=== PATIENT | female | born 1950 | race Caucasian/White ===

== ENCOUNTER → 2020-09-06 13:54 | Outpatient (POV) | payer MEDICARE, SELFPAY ==
[2020-09-06 14:23] VITALS: BP 138/89; PULSE 88; RESP 20; TEMP 36.4; O2SAT 100; BMI 18.7
--- NOTE | 2020-09-06 14:58 | HMH.PMCON ---
Assessment and Plan (1) Degenerative joint disease (DJD) of lumbar spine Status: Chronic Qualifiers: Spinal osteoarthritis complication: with radiculopathy Qualified Code(s): M47.26 - Other spondylosis with radiculopathy, lumbar region Category: Medical Code(s): M47.816 - Spondylosis without myelopathy or radiculopathy, lumbar region (2) Lumbar radiculopathy Status: Chronic Category: Medical Code(s): M54.16 - Radiculopathy, lumbar region (3) Sacroiliitis Status: Chronic Category: Medical Code(s): M46.1 - Sacroiliitis, not elsewhere classified - Assessment and plan all Dx Assessment and Plan for all problems:: Patient and I had a discussion in regard to plan of care we will start with a right SI joint injection for the patient. If this is not beneficial we will move forward with additional treatment of low back pain potentially facet joint injections. Patient is in agreements. I will follow-up with her after her injection reassess her symptoms at that time she has been instructed to call the office if she has any issues prior to her next appointment. Dr. Rivera has reviewed this note and agrees with this plan of care. This note was dictated using voice recognition software and may contain errors or omissions HPI - Data of Consult Consult date: 09/06/20 Requesting Physician: Nichole Mosley APRN Primary Care Provider: Referral Provider, - Consult Narrative Reason for consult: Right-sided low back pain History of present illness: Ms. Warner is a 70 year old female who presents today for consultation in regard to her right-sided low back pain. Patient has had this for about 8 months she states. Patient states is getting worse. She does have an MRI showing degenerative changes along with ligamentum flavum hypertrophy. She notices no difference between sitting and standing and walking in regards to her pain level. Patient is extremely tender over her right SI joint, she does have a positive Esau test SI joint compression test, Candy's test, distraction test on the right side. Patient has tried and failed 8 months of medication. She has had multiple epidural injections with no relief. Patient I had a long discussion in regard to SI joint pain and a plan of care. I do believe she has multiple pain generators. However I think at this time the worst one is her right SI joint. She has radiation of it into her buttock and groin. CC: Nichole Mosley APRN [facility] History I have reviewed the patient's past medical history: Yes Medical History: Reports:: Hyperlipidemia, Hypertension Denies:: Cancer, Diabetes Mellitus Type 1, Internal Pacemaker, MRSA *Have you ever received a pneumonia vaccine?: Yes *Have you received a flu vaccine this season?: Yes Other Surgeries: No: Pacemaker Amputation: No Fractures: No - *Social History Smoking Status: Current every day smoker Tobacco Type: cigarettes # Packs/Day (cigarettes): 1 Alcohol Intake: never *Occupational Status:: retired Housing: house Household Members: other *Travel in the last 8 weeks: None Family Hx:: Hypertension Review of Systems - Review of Systems ROS General: no recent weight change, no fever, no sleep disturbances Respiratory: no cough, no shortness of air, no recurring pulmonary infections Cardiovascular/Peripheral Vascular: No chest pain, No palpitations, no edema, no shortness of breath. Gastrointestinal: no new onset incontinence, normal bowel movements reported Genitourinary: no new onset incontinence Musculoskeletal: [Right SI joint pain, back pain Psychiatric: normal mood/ affect Neurological: [denies new onset weakness in extremities], [denies new onset balance issues] Meds Home Medications Medication Instructions Recorded Confirmed Type Amlodipine Besylate [Amlodipine 10 mg PO DAILY 09/06/20 09/06/20 History 10mg Tab] Atorvastatin Calcium [Lipitor 80mg 80 mg PO HS 09/06/20 09/06/20 Histor
== END ==
PROVIDERS: Visit Provider Clinical Nurse Specialist Family Health
DX: M47.26 Other spondylosis with radiculopathy, lumbar region (principal); M54.16 Radiculopathy, lumbar region; M46.1 Sacroiliitis, not elsewhere classified
CPT/HCPCS: 99202

== ENCOUNTER 2020-09-10 14:00 | Day surgery (SDC) | payer MEDICARE, SELFPAY ==
[2020-09-10 14:14] VITALS: BP 123/87; PULSE 100; RESP 20; TEMP 36.6; O2SAT 95; BMI 18.7
[2020-09-10 14:36] VITALS: BP 112/74; PULSE 85; RESP 18; O2SAT 97
[2020-09-10 14:38] VITALS: BP 118/74; PULSE 85; RESP 18; O2SAT 98
--- NOTE | 2020-09-10 14:45 | HMH.PMPROC ---
- Procedure Date: 09/10/20 Time: 14:45 Anesthesiologist:: Nichole Mosley APRN Complications:: None Pre-procedure Diagnosis:: Sacroiliitis Post-procedure Diagnosis:: Same Indications for Procedure:: Patient is a pleasant 70-year-old white female who presents today for SI joint injection. Patient has right-sided low back pain. She has a positive Esau test SI joint compression test and Candy's test on the right side. She does have an MRI showing degenerative changes along with ligamentum flavum hypertrophy. She notices no difference between sitting and standing and walking in regard to her pain level. She has had multiple months of medication and epidural injections with no relief. We will try an SI joint injection today. Procedure Details:: Informed consent was obtained and the risks and benefits of the procedure were explained to the patient. Patient was taken to the procedure room. Patient was placed prone on the procedure table. The [right] hip was prepped using ChloraPrep as a cleansing solution. The skin and subcutaneous tissues were anesthetized using lidocaine. Using fluoroscopic guidance I placed a 22-gauge spinal needle into the inferior aspect of the [right] SI joint. After this I injected 5 mL bupivacaine 0.25% and Depo-Medrol 40 mg into the [right] SI joint. The patient tolerated the procedure well with no complication. Plan and Disposition:: Follow-up with the patient 3 weeks reassess her symptoms at that time if she does not get any relief from this she may get relief from other treatments such as medial branch block. We will reassess her at that time. She has been instructed to call the office if she has any issues prior to her next appointment. Dr. Rivera has reviewed this note and agrees with this plan of care. This note was dictated using voice recognition software and may contain errors or omissions
[2020-09-10 14:57] VITALS: BP 130/73; PULSE 88; RESP 20; O2SAT 95
== END 2020-09-10 14:58 | disposition home or self-care (01) ==
LOC: SC.PAINP 14:04
PROVIDERS: PCP Internal Medicine; Visit Provider Clinical Nurse Specialist Family Health
DX: M46.1 Sacroiliitis, not elsewhere classified (principal); M54.5 Low back pain; K21.9 Gastro-esophageal reflux disease without esophagitis; I10 Essential (primary) hypertension; R56.9 Unspecified convulsions
CPT/HCPCS: 27096; G0260; J1030; Q9966

== ENCOUNTER → 2020-09-24 08:48 | Outpatient (POV) | payer MEDICARE, SELFPAY ==
[2020-09-24 09:23] VITALS: BP 110/65; PULSE 74; RESP 18; TEMP 36.4; O2SAT 98; BMI 17.6
--- NOTE | 2020-09-24 09:39 | P.CONS_ITS ---
[facility] Pain Management SOAP Note Subjective:: Patient is a very pleasant 70-year-old white female who presents today for follow-up after bilateral SI joint injections. Patient had been going to see Dr. Haresh Gay in [facility] where she received multiple epidural injections and other injections with no success. She has a positive Esau test SI joint compression test Candy's test bilaterally. Patient had a right SI joint injection to which she got 80% relief of her symptomology for several days at a time. Patient does have an MRI showing degenerative changes along with ligamentum flavum hypertrophy. She notices no differences between sitting and standing and walking in regard to her pain level. She has not had multiple months of medication, and epidural injections with no relief. Patient states that the SI joint injections were the first thing to give her some relief for several days at a time. Patient and I discussed repeating this and potentially doing a stabilization in the future. ROS General: no recent weight change, no fever, no sleep disturbances Respiratory: no cough, no shortness of air, no recurring pulmonary infections Cardiovascular/Peripheral Vascular: No chest pain, No palpitations, no edema, no shortness of breath. Gastrointestinal: no new onset incontinence, normal bowel movements reported Genitourinary: no new onset incontinence Musculoskeletal: SI joint pain Psychiatric: normal mood/ affect Neurological: [denies new onset weakness in extremities], [denies new onset balance issues] Objective:: Physical Exam General: Alert and oriented x3, no acute distress, pleasant and cooperative, [on room air] Lungs: Resps E/U, Symmetrical chest expansion, Eyes: PERRL Musculoskeletal: Flexion and extension of lumbar spine somewhat guarded secondary to pain, deep tendon reflexes normal, strength in upper and lower extremities [5/5], [abnormal gait noted] Neurological: speech clear, register clerk equal, no gross sensory deficits Assessment:: Sacroiliitis, degenerative disc disease lumbar spine lumbar radiculopathy Plan:: We will repeat the SI joint injection for the patient bilaterally. Patient may be a candidate for SI joint stabilization in the future. She has been instructed to call the office if she has any issues prior to her next appointment. Dr. Rivera has reviewed this note and agrees with this plan of care. This note was dictated using voice recognition software and may contain errors or omissions [facility] History I have reviewed the patient's past medical history: Yes Medical History: Reports:: Hyperlipidemia, Hypertension, Seizures Denies:: Cancer, Diabetes Mellitus Type 1, Diabetes Mellitus Type 2, Internal Pacemaker, MRSA *Have you ever received a pneumonia vaccine?: Yes *Have you received a flu vaccine this season?: Yes Other Medical History: Denies: Blood Transfusion Reaction Other Surgeries: Yes: Cholecystectomy, Hysterectomy-Total, Other (face surgery). No: Pacemaker Amputation: No Fractures: No - *Social History Smoking Status: Current every day smoker Tobacco Type: cigarettes # Packs/Day (cigarettes): 1 Alcohol Intake: never *Occupational Status:: other Housing: house Household Members: other *Travel in the last 8 weeks: None Family Hx:: Hypertension
== END ==
PROVIDERS: PCP Internal Medicine; Visit Provider Clinical Nurse Specialist Family Health
DX: M46.1 Sacroiliitis, not elsewhere classified (principal); M51.16 Intervertebral disc disorders with radiculopathy, lumbar region
CPT/HCPCS: 99212

== ENCOUNTER → 2020-11-05 11:16 | Outpatient (POV) | payer MEDICARE, SELFPAY ==
[2020-11-05 12:30] VITALS: BP 133/89; PULSE 77; RESP 18; O2SAT 98; BMI 17.0
--- NOTE | 2020-11-05 13:02 | P.CONS_ITS ---
[facility] Pain Management SOAP Note Subjective:: Patient is pleasant 70-year-old white female who presents today for follow-up. Patient is being worked up for potential SI joint stabilization. Patient had one therapeutic bilateral SI joint injection to which she got over 80% relief. Her pain is now beginning to return. Per patient's insurance she has been denied for no therapeutic block. After discussions in regards to the SI joint stabilization we discussed her diagnostic SI joint block. She is agreeable. She has a positive Esau test SI joint compression test Candy's test and distraction test bilaterally. It affects her activities of daily living. She tried and failed epidural injections and multiple spinal injections. She is f denisha over 6 months of medication management and physical therapy. ROS General: no recent weight change, no fever, no sleep disturbances Respiratory: no cough, no shortness of air, no recurring pulmonary infections Cardiovascular/Peripheral Vascular: No chest pain, No palpitations, no edema, no shortness of breath. Gastrointestinal: no new onset incontinence, normal bowel movements reported Genitourinary: no new onset incontinence Musculoskeletal: SI joint pain Psychiatric: normal mood/ affect Neurological: [denies new onset weakness in extremities], [denies new onset balance issues] Objective:: Physical Exam General: Alert and oriented x3, no acute distress, pleasant and cooperative, [on room air] Lungs: Resps E/U, Symmetrical chest expansion, Eyes: PERRL Musculoskeletal: Flexion and extension of lumbar spine somewhat guarded secondary to pain, deep tendon reflexes normal, strength in upper and lower extremities [5/5], [abnormal gait noted] Neurological: speech clear, assistant federal public defender 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 If it does she may be a candidate for SI joint stabilization. Patient's failed other conservative treatments and spinal injections. Patient's been instructed to call the office if she has any issues prior to her next appointment. Dr. Rivera has reviewed this note and agrees with this plan of care. This note was dictated using voice recognition software and may contain errors or omissions [facility] History I have reviewed the patient's past medical history: Yes Medical History: Reports:: Hyperlipidemia, Hypertension, Seizures Denies:: Cancer, Diabetes Mellitus Type 1, Diabetes Mellitus Type 2, Internal Pacemaker, MRSA *Have you ever received a pneumonia vaccine?: Yes *Have you received a flu vaccine this season?: Yes Other Medical History: Denies: Blood Transfusion Reaction Other Surgeries: Yes: Cholecystectomy, Hysterectomy-Total, Other (face surgery). No: Pacemaker Amputation: No Fractures: No - *Social History Smoking Status: Current every day smoker Tobacco Type: cigarettes # Packs/Day (cigarettes): 1 Alcohol Intake: never *Occupational Status:: other Housing: house Household Members: other *Travel in the last 8 weeks: None Family Hx:: Hypertension
== END ==
PROVIDERS: Visit Provider Clinical Nurse Specialist Family Health
DX: M46.1 Sacroiliitis, not elsewhere classified (principal)
CPT/HCPCS: 99212; G0463

== ENCOUNTER 2020-11-09 11:07 | Day surgery (SDC) | payer MEDICARE, SELFPAY ==
[2020-11-09 12:30] VITALS: BP 136/78; PULSE 99; RESP 18; TEMP 36.6; O2SAT 97; BMI 20.5
[2020-11-09 12:33] VITALS: BP 122/82; PULSE 74; RESP 18; O2SAT 98
[2020-11-09 12:35] VITALS: BP 123/79; PULSE 79; RESP 18; O2SAT 98
[2020-11-09 13:15] VITALS: BP 157/77; PULSE 99; RESP 18; TEMP 36.6; O2SAT 97
--- NOTE | 2020-11-09 13:44 | HMH.PMPROC ---
- Procedure Date: 11/09/20 Time: 13:44 Anesthesiologist:: Alexis Rivera MD Complications:: None Pre-procedure Diagnosis:: Sacroiliitis Post-procedure Diagnosis:: Same Indications for Procedure:: This patient is a pleasant 70-year-old white female who we are treating for bilateral hip pain. She has had bilateral SI joint injections with up to 80 to 90% relief in her pain symptoms. Her pain has now come back. She presents for repeat bilateral SI joint injections under fluoroscopy today. Right side is worse. Procedure Details:: B/L SI joint injection under fluoroscopy Informed consent was obtained and the risks and benefits of the procedure was explained to the patient. The patient was taken to the procedure room and placed prone on the procedure table. The patient was prepped using ChloraPrep. The skin and subcutaneous tissues overlying the SI joints were anesthetized using lidocaine. I placed a 22-gauge needle first in the left SI joint and second in the right SI joint. Needle placement was confirmed with dye. After this we injected 5 mL bupivacaine 0.25% and Depo-Medrol 40 mg into each SI joint. Patient tolerated the procedure well with no complication. Plan and Disposition:: Right side is the worst. We will follow-up with her in 2 weeks. She may be a candidate for SI joint stabilization to the right side and then we will follow this with the left side in the future.
== END 2020-11-09 12:40 | disposition home or self-care (01) ==
PROVIDERS: PCP Internal Medicine; Visit Provider Anesthesiology
DX: M46.1 Sacroiliitis, not elsewhere classified (principal); I10 Essential (primary) hypertension; E78.5 Hyperlipidemia, unspecified; R56.1 Post traumatic seizures; G93.1 Anoxic brain damage, not elsewhere classified; K21.9 Gastro-esophageal reflux disease without esophagitis; Z72.0 Tobacco use
CPT/HCPCS: 27096; G0260; J1030; Q9966

== ENCOUNTER → 2020-11-29 13:45 | Outpatient (POV) | payer MEDICARE, SELFPAY ==
[2020-11-29 14:12] VITALS: BP 124/74; PULSE 74; RESP 18; TEMP 36.8; O2SAT 98; BMI 16.5
--- NOTE | 2020-11-29 15:48 | P.CONS_ITS ---
[facility] Pain Management SOAP Note Subjective:: Patient is a very pleasant 70-year-old white female who we are treating for multiple pain. Patient was involved in a work-related accident where she sustained a crush injury. Patient has back pain, hip pain, leg pain. Patient has difficulty standing and walking. She is tried multiple epidural injections and multiple SI joint injections along with facet joint injections with no relief. I discussed with her potential intrathecal therapy or neuro stimulation. I do believe this may benefit her. She does rate her pain a 3 out of 10 today however it can get up to 9 out of 10 when she is doing activity. Patient's tried and failed multiple modalities of treatment including medications, injection therapy, physical therapy. ROS General: no recent weight change, no fever, no sleep disturbances Respiratory: no cough, no shortness of air, no recurring pulmonary infections Cardiovascular/Peripheral Vascular: No chest pain, No palpitations, no edema, no shortness of breath. Gastrointestinal: no new onset incontinence, normal bowel movements reported Genitourinary: no new onset incontinence Musculoskeletal: Back pain, leg pain Psychiatric: normal mood/ affect Neurological: [denies new onset weakness in extremities], [denies new onset balance issues] Objective:: Physical Exam General: Alert and oriented x3, no acute distress, pleasant and cooperative, [on room air] Lungs: Resps E/U, Symmetrical chest expansion, Eyes: PERRL Musculoskeletal: Flexion and extension of lumbar spine somewhat guarded secondary to pain, deep tendon reflexes normal, strength in upper and lower extremities [5/5], [abnormal gait noted] Neurological: speech clear, photogrammetric engineer equal, no gross sensory deficits Assessment:: Degenerative disc disease lumbar spine lumbar radiculopathy, CRPS type I, crush injury Plan:: I gave the patient information on both intrathecal therapy and neuro stimulation she has been to take this home and discuss it with her family we will set up an appointment where her daughter can also join us in discussion in regards to moving forward with the plan of care. Patient has been instructed to call the office if she has any issues prior to her next appointment. Dr. Rivera has reviewed this note and agrees with this plan of care. This note was dictated using voice recognition software and may contain errors or omissions [facility] History I have reviewed the patient's past medical history: Yes Medical History: Reports:: Hyperlipidemia, Hypertension Denies:: Cancer, Diabetes Mellitus Type 1, Diabetes Mellitus Type 2, Internal Pacemaker, MRSA, Seizures *Have you ever received a pneumonia vaccine?: Yes *Have you received a flu vaccine this season?: Yes Other Medical History: Denies: Blood Transfusion Reaction Other Surgeries: Yes: Cholecystectomy, Hysterectomy-Total, Other (face surgery). No: Pacemaker Amputation: No Fractures: No - *Social History Smoking Status: Current every day smoker Tobacco Type: cigarettes # Packs/Day (cigarettes): 1 Alcohol Intake: never *Occupational Status:: other Housing: house Household Members: other *Travel in the last 8 weeks: None Family Hx:: Hypertension
== END ==
PROVIDERS: PCP Internal Medicine; Visit Provider Clinical Nurse Specialist Family Health
DX: M51.16 Intervertebral disc disorders with radiculopathy, lumbar region (principal); G90.50 Complex regional pain syndrome I, unspecified; T14.8XXD Other injury of unspecified body region, subsequent encounter
CPT/HCPCS: 99212; G0463

== ENCOUNTER → 2020-12-20 11:59 | Outpatient (POV) | payer MEDICARE, SELFPAY ==
[2020-12-20 12:24] VITALS: BP 122/71; PULSE 77; RESP 18; O2SAT 98; BMI 17.5
--- NOTE | 2020-12-20 16:42 | HMH.PAINSOAP ---
[facility] Pain Management SOAP Note Subjective:: Patient is a 70-year-old white female who presents today for follow-up and for discussion of possible intrathecal pump versus spinal cord stimulation. She is being treated for degenerative disc disease lumbar spine with lumbar radicular symptoms and CRPS type one of her lower extremity. Patient's pain is primarily in her low back and into her right hip and right leg. She does have difficulty with standing and walking. She has tried multiple modalities of therapy which include physical therapy for greater than 6 weeks along with continued home stretching program. She is also tried multiple injective therapies such as SI injections facet injections and epidural steroid injections. She has tried home stretching program as well as ice and heat therapies and anti-inflammatories with no significant relief. She does continue with [id number] medications at this time. She rates her pain a 6 out of 10 today. She is having difficulty sitting for very long or standing for very long due to the pain. It has affected her quality of life at this point. She did discuss possible intrathecal therapy versus spinal cord stimulation. She would like for me to discuss the devices with her daughter via phone call today. We will discuss it with her daughter to determine a further plan of care. Review of Systems General: No recent weight changes, no fever, no sleep disturbances Respiratory: No cough, no shortness of air, no recurring pulmonary infections Cardiovascular/peripheral vascular: No chest pain, no palpitations, no edema, no shortness of breath Gastrointestinal: No new onset incontinence, normal bowel movements reported Genitourinary: No new onset incontinence Musculoskeletal: Low back pain, right hip and right leg Psychiatric: Normal mood/affect Neurological: [Denies weakness in extremities], [denies balance issues] Objective:: Physical exam General: Alert and oriented x3, no acute distress, pleasant and cooperative, [on room air] Lungs: Respirations even and unlabored, symmetrical chest expansion Eyes: PERRL Musculoskeletal: Flexion and extension of lumbar spine somewhat guarded secondary to pain, deep tendon reflexes normal, strength in upper and lower extremities [5/5], [abnormal gait noted] Neurological: Speech clear, coloring checker equal, no gross sensory deficit Assessment:: Degenerative disc disease lumbar spine with lumbar radiculopathy symptoms, CRPS type I lower extremity Plan:: The devices were explained in detail to the patient and to her daughter. Patient would like to proceed with possible spinal cord stimulation trial. I did educate them that we would need to perform a psychological evaluation before proceeding. They are in agreement. We will schedule her for psychological evaluation for possible spinal cord stimulation versus intrathecal therapy. We will trial her with spinal cord stimulation initially to see if she gets relief. Patient and I did discuss if she does not benefit from the trial of stimulation, we can consider the intrathecal pain pump. We will order the patient ibuprofen 800 mg 1 tablet p.o. 3 times daily. We will see her back in the clinic after her psychological evaluation to discuss a further plan of care. She has been instructed if she has any concerns for next appointment contact clinic. The patient and I specifically discussed risk factors for COVID19. These risks include, but are not limited to age greater than 60, heart or lung disease, diabetes, immunosuppression, and travel. We also discussed NSAIDs may worsen COVID19 infection or symptoms. Patient should not use NSAIDs to treat COVID19 signs or symptoms. Patient was also informed that any type of corticosteroid of any form (oral or injection) will decrease the patient's immune system response and may increase the likelihood of COVID19 infection and symptoms. Risks and benefits of the procedure have b
== END ==
PROVIDERS: Visit Provider Clinical Nurse Specialist Family Health
DX: M51.16 Intervertebral disc disorders with radiculopathy, lumbar region (principal); G90.529 Complex regional pain syndrome I of unspecified lower limb
CPT/HCPCS: 99212; G0463

== ENCOUNTER → 2021-03-20 07:13 | Outpatient (CLI) | payer MEDICARE, SELFPAY ==
[2021-03-20 07:49] LABS: Basophils % 0.2 % (0.1-2.0); Eosinophils # 0.1 K/mm3 (0.0-0.4); Eosinophils % 0.7 % (0.1-12.0); Hematocrit 42.6 % (37.0-47.0); Hemoglobin 14.5 g/dL (12.2-16.2); Lymphocytes # 2.8 K/mm3 (0.7-4.5); Lymphocytes % 24.2 % (10-50); Mean Corpuscular HGB Conc 33.9 g/dL (31.8-35.4); Mean Corpuscular Hemoglobin 31.4 pg (27.0-31.2); Mean Corpuscular Volume 92.6 fl (81-99); Monocytes # 0.8 K/mm3 (0.1-1.0); Monocytes % 6.6 % (1.7-9.3); Neutrophils # 7.8 K/mm3 (1.8-7.8); Neutrophils % 68.3 % (37.0-80.0); Platelet Count 330 K/mm3 (142-424); Red Cell Distribution Width 13.2 % (11.5-17.5); White Blood Count 11.4 K/mm3 (4.8-10.8)
[2021-03-20 09:17] LABS: Anion Gap 10.5 mEq/L (5-15); Blood Urea Nitrogen 7 mg/dl (7-17); Calcium 9.5 mg/dl (8.4-10.2); Carbon Dioxide 27 mmol/L (22.0-30.0); Chloride 106 mmol/L (98-107); Estimated Glomerular Filt Rate 123 ml/min (>60); GFR (African American) 148 ML/MIN (>60); Glucose 87 mg/dl (74-100); Potassium 4.5 mmoL/L (3.5-5.1); Sodium 139 mmol/L (136-145)
== END ==
PROVIDERS: Visit Provider Anesthesiology
DX: Z01.812 Encounter for preprocedural laboratory examination (principal); Z20.822 Contact with and (suspected) exposure to COVID-19; M54.16 Radiculopathy, lumbar region
CPT/HCPCS: 36415; 80048; 85025; U0003

== ENCOUNTER 2021-03-22 07:46 | Day surgery (SDC) | payer MEDICARE, SELFPAY ==
[2021-03-19 12:08] VITALS: BMI 19.3
[2021-03-22] VITALS (8 sets, daily range): BP systolic 129–147; BP diastolic 79–92; PULSE 68–94; RESP 18; TEMP 36.6–36.7; O2SAT 96–100
--- NOTE | 2021-03-22 10:23 | P.PN_ITS ---
[facility] Anesthesia Checklist - Patient Identification Patient Identification: Arm Band - Structural Data Admitted From: Home Planned Operative Procedure/s: Spinal Cord trial stimulator Consent for Planned Operative Procedure(s) Verified: Yes - Additional verifications Anesthesia Reactions: No Hx Blood Transfusions: No Blood Transfusion Reaction: No - Airway Assessment C-Spine Mobility Assessed: Yes TMJ Mobility Assessed: Yes Dentition: Dentures-good fit - Neurological Assessment Level of Consciousness: Awake, Alert - Anesthesia Plan Anesthesia Risk discussed: Yes Anesthesia Plan: Verified ASA Class: II Anesthesia Type: MAC [facility] History Medical History: Reports:: Hyperlipidemia, Hypertension, Seizures Denies:: Cancer, Diabetes Mellitus Type 1, Diabetes Mellitus Type 2, Internal Pacemaker, MRSA *Have you ever received a pneumonia vaccine?: No *Have you received a flu vaccine this season?: No Other Medical History: Denies: Blood Transfusion Reaction Anesthesia experience/problems:: None Other Surgeries: Yes: Cholecystectomy, Hysterectomy-Total, Other (face surgery). No: Pacemaker Amputation: Yes Fractures: No - *Social History Last grade of school completed: GED Smoking Status: Current every day smoker Tobacco Type: cigarettes # Packs/Day (cigarettes): 1 Alcohol Intake: never Substance Use Type: denies use *Occupational Status:: disabled Housing: house Household Members: none *Travel in the last 8 weeks: None Family Hx:: Hypertension
--- NOTE | 2021-03-22 11:38 | HMH.OPNOTE ---
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 Most of her pain is in the low back radiating down her right leg. Does have difficulty with standing and walking. She has tried multiple modalities of therapy which include physical therapy for greater than 6 weeks along with continued home stretching program with unfortunately very little relief in her pain. She has also tried multiple injection therapies such as SI injections, facet injections, and epidural steroid injections. She has tried home stretching program as well as ice and heat therapies, and anti-inflammatories with no significant relief. She does continue with [id number] medication at this time. She continues to note difficulty sitting for long periods as well as standing for long periods because of her pain and admits to this affecting her quality of life she does have an antalgic gait. Motor strength of the lower extremities is 5 out of 5. There is no gross sensory deficits appreciated. We will plan on spinal cord stimulator trial to see if this will capture her radicular symptoms better. This will be the [employer] system.. Operative findings:: none Operative note:: Stimulator trial lead placement Informed consent was obtained, the risk and benefits of the procedures were explained to the patient. The back was anesthetized using lidocaine. A 17-gauge epidural needle was inserted and advanced into the L4-L5 interspace. After confirmation needle placement in the epidural space stimulating lead was inserted and advanced very easily to the 789 vertebral body. Lead placement was checked in AP and lateral views. A second needle was inserted and advanced again into the L3-L space. Again after confirmation of needle placement in the epidural space, stimulating lead was inserted and advanced again very easily to the T7-T8-T9 vertebral body. Again lead placement was checked in the AP and lateral views. The needle and stylet were withdrawn. The leadd were secured in place. The patient was taken to recovery in stable condition. Patient tolerated the procedure well with no complications. Patient was programmed by the [employer] off premise service representative with good stimulation in all areas of pain. Patient was put on paresthesia free fast program. Patient was discharged home neurologically intact with good relief of pain symptoms. We will follow up with the patient in 1 week for lead pull. We will continue to adjust her stimulation as needed. If she has any problems or questions she is free to call us back in the pain clinic. Condition: stable Disposition: PACU Complications:: none
--- NOTE | 2021-03-22 13:07 | SUR.PHASEII ---
pt ambulated to BR
== END 2021-03-22 13:15 | disposition home or self-care (01) ==
PROVIDERS: PCP Internal Medicine; Visit Provider Anesthesiology Pain Medicine
DX: M51.16 Intervertebral disc disorders with radiculopathy, lumbar region (principal); G90.529 Complex regional pain syndrome I of unspecified lower limb; K21.9 Gastro-esophageal reflux disease without esophagitis; I10 Essential (primary) hypertension; E78.5 Hyperlipidemia, unspecified; R56.9 Unspecified convulsions; Z82.49 Family history of ischemic heart disease and other diseases of the circulatory system; Z83.438 Family history of other disorder of lipoprotein metabolism and other lipidemia; Z79.899 Other long term (current) drug therapy
CPT/HCPCS: 63650; 96374; C1778; J3370

== ENCOUNTER → 2021-03-29 14:27 | Day surgery (SDC) | payer MEDICARE, SELFPAY ==
[2021-03-29 14:31] VITALS: BP 169/85; PULSE 92; RESP 18; TEMP 36.7; O2SAT 94; BMI 18.8
[2021-03-29 15:03] VITALS: BP 144/72; PULSE 81; RESP 18; O2SAT 98
[2021-03-29 15:05] VITALS: BP 144/72; PULSE 80; RESP 18; O2SAT 99
--- NOTE | 2021-03-29 15:09 | P.PCN_ITS ---
- Procedure Date: 03/29/21 Time: 15:09 Anesthesiologist:: Alexis Rivera MD Complications:: None Pre-procedure Diagnosis:: Bilateral sacroiliitis Post-procedure Diagnosis:: Same Indications for Procedure:: The patient is a pleasant 70-year-old white female who we are treating for low back pain with lumbar radiculopathy symptoms. She is undergoing spinal cord stimulator trial which seems to be helping pain score is a 3-4 out of 10 however, she does have increasing bilateral hip pain which seems to be overshadowing her normal pain relief and imaging activity. She is tender over both SI joints. She does have positive Candy's test bilaterally. She has positive SI joint compression test bilaterally. She is positive Esau test bilaterally. We will do bilateral SI joint injections under fluoroscopy today. Procedure Details:: B/L SI joint injection under fluoroscopy Informed consent was obtained and the risks and benefits of the procedure was explained to the patient. The patient was taken to the procedure room and placed prone on the procedure table. The patient was prepped using ChloraPrep. The skin and subcutaneous tissues overlying the SI joints were anesthetized using lidocaine. I placed a 22-gauge needle first in the left SI joint and second in the right SI joint. Needle placement was confirmed with dye. After this we injected 5 mL bupivacaine 0.25% and Depo-Medrol 40 mg into each SI joint. Patient tolerated the procedure well with no complication. Plan and Disposition:: We will follow-up with her on Thursday. We will reevaluate her symptoms at that time. She may have had overshadowing of her pain relief with increasing sacroiliitis and this was also limiting her activity. We will reevaluate e fficacy of the spinal cord stimulator trial on Thursday.
== END ==
PROVIDERS: PCP Internal Medicine; Visit Provider Anesthesiology
DX: M46.1 Sacroiliitis, not elsewhere classified (principal); I10 Essential (primary) hypertension; G89.4 Chronic pain syndrome; J44.9 Chronic obstructive pulmonary disease, unspecified; G93.1 Anoxic brain damage, not elsewhere classified; F32.9 Major depressive disorder, single episode, unspecified; G43.909 Migraine, unspecified, not intractable, without status migrainosus; M19.90 Unspecified osteoarthritis, unspecified site
CPT/HCPCS: 27096; G0260; J1030; Q9966

== ENCOUNTER → 2021-04-01 08:14 | Outpatient (POV) | payer MEDICARE, SELFPAY ==
[2021-04-01 08:22] VITALS: BP 152/99; PULSE 86; RESP 18; O2SAT 97; BMI 19.3
--- NOTE | 2021-04-01 08:48 | HMH.PMPROC ---
- Procedure Date: 04/01/21 Time: 08:49 Anesthesiologist:: Peggy Almaraz APRN Complications:: None Pre-procedure Diagnosis:: Degenerative disc disease lumbar spine with lumbar radiculopathy symptoms Post-procedure Diagnosis:: Same Indications for Procedure:: Patient is a 70-year-old white female who presents today for follow-up after a spinal cord stimulator trial. She has been treated for degenerative disc disease lumbar spine with lumbar radiculopathy symptoms. Patient is here today to have her leads removed. She says that she only got 20 to 30% relief during the trial. Patient says that she had severe pain immediately after the trial did undergo bilateral SI joint injections. She continues to have significant pain. She does not feel that she had a successful trial and does not want to proceed with implant. Today, we have discussed undergoing a lumbar epidural steroid injection. Her pain is in her low back and radiating into her bilateral lower extremities at this time. She has tried and failed conservative therapies of physical therapy for greater than 6 weeks in the past along with continued home stretching and oral medications. We did discuss that we are limited in the options we can provide her at this time as she did not have successful trial. We did discuss possible intrathecal therapy which would be bupivacaine only intrathecal pain pump. Patient says she will discuss this with her daughter. Patient did request information for surgical intervention with neurosurgery, however, has declined a referral at this time. She says that her primary care provider has informed her in the past that she is not likely an neurosurgical candidate. I have offered the patient a referral, however, she would like to postpone at this time. She does rate her pain an 8 out of 10 today. 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 The risks and benefits of the procedure were explained to the patient. The patient was taken to the procedure room where noninvasive monitors were placed, including noninvasive blood pressure cuff and pulse oximeter. The area around the leads was examined and there were no signs or symptoms of infection. The skin was cleansed using chlorhexidine around the trial leads. Both leads were removed without incident. Leads were complete and intact. Dressing was placed. Patient tolerated the procedure well with no complications. Plan and Disposition:: Patient did not have a successful SCS trial. She has requested an injection. We will schedule her for a lumbar epidural steroid injection at L4-L5 area. She is not on anticoagulation therapy. She will continue with home stretching and oral medications. In the future, she may be an intrathecal pain pump candidate with bupivacaine only. She initially requested a neurosurgical referral, however, decided to postpone at this time. We will follow up with her after her injection to reevaluate her symptoms. Risks and benefits of the procedure have been explained to the patient. Patient would like to proceed with the procedure. Patient has been instructed to contact the clinic with any concerns before the next appointment. Dr. Rivera has reviewed this note and agrees with this plan of care. This note was dictated using voice recognition software and make contain errors or omissions.
== END ==
PROVIDERS: Visit Provider Clinical Nurse Specialist Family Health
DX: M51.16 Intervertebral disc disorders with radiculopathy, lumbar region (principal)
CPT/HCPCS: 99212; G0463

== ENCOUNTER 2021-04-12 08:16 | Day surgery (SDC) | payer MEDICARE, SELFPAY ==
[2021-04-12 08:33] VITALS: BP 159/89; PULSE 77; RESP 18; TEMP 36.6; O2SAT 97; BMI 17.6
[2021-04-12 09:26] VITALS: BP 168/93; PULSE 87; RESP 20; O2SAT 96
[2021-04-12 09:28] VITALS: BP 157/97; PULSE 79; RESP 20
--- NOTE | 2021-04-12 09:40 | HMH.PMPROC ---
- Procedure Date: 04/12/21 Time: 09:40 Anesthesiologist:: Manisha Fuentes MD Complications:: None Pre-procedure Diagnosis:: Lumbar radiculopathy, degenerative disc disease of the lumbar spine Post-procedure Diagnosis:: Same Indications for Procedure:: This is a very pleasant 70-year-old female who presents today with low back pain radiating into her legs. She states the right side is slightly worse than the left. She is trialed conservative treatment including oral pain medications and home stretching program with minimal relief. She is also recently undergone spinal cord stimulator trial and SI joint injections with minimal relief. Plan for today is for her to undergo lumbar epidural steroid injection at L5-S1. Procedure Details:: Informed consent was obtained and the risk and benefits of the procedure was explained to the patient. The patient was taken to the procedure room. The patient was placed prone on the procedure table. The patient was prepped and draped in sterile fashion. C-arm fluoroscopy was used to view the lumbar spine. Skin and subcutaneous tissues were anesthetized using lidocaine. I placed an 18-gauge epidural needle and advanced into the L5-S1 interspace using fluoroscopic guidance and [id number] to air and saline. After confirmation of needle placement in the epidural space with dye I injected 2 mL of lidocaine 1.5% with Depo-Medrol 80 mg. Patient tolerated the procedure well with no complications. Plan and Disposition:: We will put the patient into 3 weeks. Will reevaluate pain symptoms at that time. We discussed that should these injections not work she may be a candidate for intrathecal pump therapy in the future.
[2021-04-12 14:52] VITALS: BP 161/95; PULSE 83; RESP 18; TEMP 36.6; O2SAT 97
== END 2021-04-12 09:40 | disposition home or self-care (01) ==
PROVIDERS: PCP Internal Medicine; Visit Provider Anesthesiology Pain Medicine
DX: M51.16 Intervertebral disc disorders with radiculopathy, lumbar region (principal); I10 Essential (primary) hypertension; E78.5 Hyperlipidemia, unspecified; M19.90 Unspecified osteoarthritis, unspecified site
CPT/HCPCS: 62323; J1040; Q9966

== ENCOUNTER → 2021-04-26 09:02 | Outpatient (POV) | payer MEDICARE, SELFPAY ==
[2021-04-26 09:22] VITALS: BP 168/88; PULSE 84; RESP 20; O2SAT 98
--- NOTE | 2021-04-26 14:54 | HMH.PAINSOAP ---
[facility] Pain Management SOAP Note Subjective:: Patient is a 70-year-old white female who presents today for follow-up and reassessment chronic pain. She has been treated for degenerative disc disease lumbar spine with lumbar radiculopathy symptoms and bilateral sacroiliitis. Today, she reports that the spinal cord stimulator trial that she previously underwent did not help improve her pain. She subsequently underwent bilateral SI joint injections which also did not help relieve her pain. She notes that most of her pain is a sharp stabbing and burning pain in her legs that is constant throughout the day. She denies any exacerbating or alleviating factors. She rates her pain as an 8 out of 10 today. We have previously discussed intrathecal therapy with her and she would like to proceed with the intrathecal pump trial. However this is pending insurance approval at this time. She has previously undergone a successful psychological evaluation. Objective:: General: Alert and oriented x3, no acute distress, pleasant and cooperative Lungs: Resps E/U, symmetric chest expansion Eyes: PERRL Musculoskeletal: limited flexion and extension of the lumbar spine secondary to pain. Deep tendon reflexes were normal in bilateral lower extremities. Motor exam was grossly intact in the bilateral lower extremities, antalgic gait noted. Positive straight leg raise on the right. Positive Candy's, positive SI joint compression, positive Gaenslen's bilaterally. Neurological: Speech is clear, protective signal repairer equal, no gross sensory deficits Assessment:: I discussed with this patient that I believe she will benefit from intrathecal therapy and I agree with proceeding with the intrathecal pump trial. We are still waiting on insurance approval at this time. She has previously undergone a successful psychological evaluation. I also discussed with her that she may benefit from increasing her Lyrica from 75 mg to 100 mg 3 times daily for additional neuropathic pain control as I believe that is her primary pain complaint at this time. I will order this medication today with a higher dose. We will follow up with her in 2 weeks and will reevaluate her pain symptoms at that time. Degenerative disc disease of the lumbar spine Lumbar radiculopathy Bilateral sacroiliitis Neuropathic pain [facility] History Medical History: Reports:: Hyperlipidemia, Hypertension, Seizures Denies:: Cancer, Diabetes Mellitus Type 1, Diabetes Mellitus Type 2, Internal Pacemaker, MRSA *Have you ever received a pneumonia vaccine?: No *Have you received a flu vaccine this season?: No Other Medical History: Reports: Arthritis. Denies: Blood Transfusion Reaction Other Surgeries: Yes: Cholecystectomy, Hysterectomy-Total, Plastic Surgery, Other (face surgery). No: Pacemaker Amputation: No Fractures: No - *Social History Smoking Status: Current every day smoker Tobacco Type: cigarettes # Packs/Day (cigarettes): 1 Alcohol Intake: never Substance Use Type: denies use *Occupational Status:: retired Housing: house Household Members: none *Travel in the last 8 weeks: None Family Hx:: Hypertension
== END ==
PROVIDERS: PCP Internal Medicine; Visit Provider Anesthesiology Pain Medicine
DX: M51.16 Intervertebral disc disorders with radiculopathy, lumbar region (principal); M46.1 Sacroiliitis, not elsewhere classified; G62.9 Polyneuropathy, unspecified
CPT/HCPCS: 99212; G0463

== ENCOUNTER → 2021-05-06 08:56 | Outpatient (POV) | payer MEDICARE, SELFPAY ==
[2021-05-06 09:11] VITALS: BP 162/90; PULSE 81; RESP 18; O2SAT 98; BMI 19.3
--- NOTE | 2021-05-06 10:05 | HMH.PAINSOAP ---
[facility] Pain Management SOAP Note Subjective:: Patient is a pleasant 70-year-old white female who presents today for follow-up. Patient is being treated in the clinic for degenerative disc disease lumbar spine with lumbar radiculopathy symptoms and bilateral sacroiliitis as well as neuropathic pain. She was seen by Dr. Fuentes on 04/26/2021. Patient has tried multiple modalities of therapy within the clinic. She did undergo a spinal cord stimulator trial which was not a successful trial. She has tried physical therapy for more than 6 weeks along with continued home stretching. She is also tried anti-inflammatories in the past with no significant relief. Patient's pain is in her low back below her waist line with radiation on the right hip, right thigh and right leg with numbness and tingling into her right leg. She does have mid back pain as well intermittently. She says that her pain is an 8 out of 10 with movement, however, with sitting her pain is a 3 out of 10. She is here today to inquire about other options for pain relief. We did discuss the intrathecal pain pump in the past, however, she did want to discuss it with Dr. Fuentes before proceeding. She is also increased on her Lyrica at 100 mg 1 tablet p.o. 3 times daily. This did not give her much relief. She did discuss with Dr. Fuentes possible intrathecal therapy. She has had a successful psychological evaluation. She would like to proceed with a trial to see if she gets relief. Review of Systems General: No recent weight changes, no fever, no sleep disturbances Respiratory: No cough, no shortness of air, no recurring pulmonary infections Cardiovascular/peripheral vascular: No chest pain, no palpitations, no edema, no shortness of breath Gastrointestinal: No new onset incontinence, normal bowel movements reported Genitourinary: No new onset incontinence Musculoskeletal: Low back pain worse to right side, radiation into right hip, right thigh, right leg Psychiatric: Normal mood/affect Neurological: Weak to right lower extremity Objective:: Physical exam General: Alert and oriented x3, no acute distress, pleasant and cooperative, [on room air] Lungs: Respirations even and unlabored, symmetrical chest expansion Eyes: PERRL Musculoskeletal: Flexion and extension of lumbar spine somewhat guarded secondary to pain, deep tendon reflexes normal, strength in upper and lower extremities [5/5], [abnormal gait noted] Neurological: Speech clear, 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 She did discuss the device with myself as well as with Dr. Fuentes. She has tried and failed conservative therapies of physical therapy for more than 6 weeks and home stretching continued. She has tried anti-inflammatories and injective therapy. None of these conservative therapies gave her significant relief. She has also had a spinal cord stimulator trial with no relief. She has had a successful psychological evaluation. We will schedule her for the trial and see her back afterwards for reevaluation of symptoms. She does understand we would like for her to get at least 60% relief following the trial before implant. Patient is not on any anticoagulation therapy. We will plan to see her back afterwards. Risks and benefits of the procedure have been explained to the patient. Patient would like to proceed with the procedure. Patient has been instructed to contact the clinic with any concerns before the next appointment. Dr. Rivera has reviewed this note and agrees with this plan of care. This note was dictated using voice recognition software and make contain errors or omissions. [facility] History I have reviewed the patient's past medical history: Yes Medical History: Reports:: Hyperlipidemia,
== END ==
PROVIDERS: Visit Provider Clinical Nurse Specialist Family Health
DX: M51.16 Intervertebral disc disorders with radiculopathy, lumbar region (principal); M46.1 Sacroiliitis, not elsewhere classified; G62.9 Polyneuropathy, unspecified
CPT/HCPCS: 99212; G0463

== ENCOUNTER 2021-05-17 07:44 | Day surgery (SDC) | payer MEDICARE, SELFPAY ==
--- NOTE | 2021-05-16 09:42 | PC.NURSE ---
Spoke with patient of time change.
[2021-05-17] VITALS (10 sets, daily range): BP systolic 137–158; BP diastolic 70–99; PULSE 76–86; RESP 18–20; TEMP 37; O2SAT 93–97; BMI 20.5
--- NOTE | 2021-05-17 09:33 | HMH.PMPROC ---
- Procedure Date: 05/17/21 Time: 09:33 Anesthesiologist:: Manisha Fuentes MD Complications:: None Pre-procedure Diagnosis:: Degenerative disc disease of lumbar spine, lumbar radiculopathy Post-procedure Diagnosis:: Same Indications for Procedure:: This patient is a very pleasant 70-year-old white female who presents today with chronic low back pain radiating into her legs with above diagnosis. Failed conservative treatment including oral pain medication, injection therapy, and home stretching program for greater than 6 weeks. She is previously undergone and failed spinal cord stimulator trial. She also has undergone bilateral SI joint injections recently with very minimal pain relief. She reports her pain is all over but primarily worse in her low back eating down her legs. She has previously undergone a successful psychological evaluation. The plan for today is for the patient to undergo an intrathecal pump trial with fentanyl 25 mcg. Procedure Details:: Pain pump trial Informed consent was obtained and the risk and benefits of the procedure was explained to the patient. The patient was taken to the procedure room and placed prone on the procedure table. Patient was prepped and draped in sterile fashion. C-arm fluoroscopy was used to view the lumbar spine. The skin and subcutaneous tissues were anesthetized using lidocaine. I placed a 18-gauge spinal needle into the L4-5 interspace and advanced until clear CSF was obtained. After this intrathecal catheter was inserted and advanced very easily to the L1 vertebral body. The needle was withdrawn. We were able to freely withdraw clear CSF through the catheter. We then injected intrathecal fentanyl single shot bolus of 25 mcg followed by saline. The needle and catheter were then removed and a Band-Aid was placed. Patient tolerated the procedure well with no complications. Plan and Disposition:: We will follow-up with this patient in 1 week. Will reevaluate pain symptoms at that time. She reports 100% pain relief after undergoing this intrathecal pump trial. She ambulated with physical therapy today and denies any difficulty with ambulation and notes 100% pain relief with ambulation. We will schedule her for an initial consultation with Dr. Sharma and schedule her for a permanent pain pump implant.
--- NOTE | 2021-05-17 11:43 | PC.NURSE ---
0900-pt ambulated back to bay assisted by nursing staff, gait steady. pt denies pain. VSS. 0915-pt resting in chair. VSS, no c/o pain. pt without needs or concerns at this time 0930-pt resting in chair, VSS, no c/o pain. tolerating PO fluids, without any needs or concerns at time. 45-pt resting in chair, eating breakfast. VSS, no c/o pain. pt without needs or concerns at this time. 1005-MD at bedside 1015-pt resting in chair. tolerated PO intake. VSS, no c/o pain. pt without needs or concerns at this time. 1025-pt ambulated to nurses station and back with assistance of nursing staff. gait steady. pt denies pain with ambulation. 1035-PT at bedside for evaluation 1040-IV discontinued.
--- NOTE | 2021-06-05 15:03 | PC.NURSE ---
informed patient of pain pump implant date and time, let her know that pre op will call and inform her when to come in for labs and the day of.
== END 2021-05-17 10:55 | disposition home or self-care (01) ==
LOC: SC.PAINP 07:46
PROVIDERS: PCP Internal Medicine; Visit Provider Anesthesiology Pain Medicine
DX: M51.16 Intervertebral disc disorders with radiculopathy, lumbar region (principal); E78.5 Hyperlipidemia, unspecified; I10 Essential (primary) hypertension; M19.90 Unspecified osteoarthritis, unspecified site; R56.9 Unspecified convulsions; Z72.0 Tobacco use; J44.9 Chronic obstructive pulmonary disease, unspecified; K21.9 Gastro-esophageal reflux disease without esophagitis; F41.9 Anxiety disorder, unspecified; F32.9 Major depressive disorder, single episode, unspecified; G43.909 Migraine, unspecified, not intractable, without status migrainosus; G93.1 Anoxic brain damage, not elsewhere classified
CPT/HCPCS: 62350; 76000; 96365

== ENCOUNTER → 2021-06-11 11:01 | Outpatient (CLI) | payer MEDICARE, SELFPAY ==
[2021-06-11 11:39] LABS: Basophils % 0.4 % (0.1-2.0); Eosinophils # 0.1 K/mm3 (0.0-0.4); Eosinophils % 1.3 % (0.1-12.0); Hematocrit 43.8 % (37.0-47.0); Hemoglobin 14.8 g/dL (12.2-16.2); Lymphocytes % 29.7 % (10-50); Mean Corpuscular HGB Conc 33.7 g/dL (31.8-35.4); Mean Corpuscular Hemoglobin 32.2 pg (27.0-31.2); Mean Corpuscular Volume 95.5 fl (81-99); Mean Platelet Volume 8.4 fl (7.4-10.4); Monocytes # 0.6 K/mm3 (0.1-1.0); Neutrophils # 6.3 K/mm3 (1.8-7.8); Neutrophils % 62.6 % (37.0-80.0); Platelet Count 296 K/mm3 (142-424); Red Blood Count 4.59 M/mm3 (4.20-5.40); Red Cell Distribution Width 13.3 % (11.5-17.5); White Blood Count 10.1 K/mm3 (4.8-10.8)
[2021-06-11 12:19] LABS: Amphetamine/Metha Screen,Urine Negative ng/ml (<1000); Benzodiazepines Screen,Urine Negative ng/ml (<200)
[2021-06-11 12:20] LABS: Barbiturates Screen,Urine Negative ng/ml (<200)
[2021-06-11 12:21] LABS: Cannabinoid Screen,Urine Negative ng/ml (<50); Cocaine Screen,Urine Negative ng/ml (<300)
[2021-06-11 12:22] LABS: Methadone Screen,Urine Negative ng/ml (<300); Opiate Screen,Urine Negative ng/ml (<300)
[2021-06-11 12:23] LABS: Phencyclidine Screen,Urine Negative ng/ml (<25)
[2021-06-11 12:57] LABS: Anion Gap 13.4 mEq/L (5-15); Blood Urea Nitrogen 8 mg/dl (7-17); Calcium 9.8 mg/dl (8.4-10.2); Carbon Dioxide 28 mmol/L (22.0-30.0); Chloride 98 mmol/L (98-107); Estimated Glomerular Filt Rate 158 ml/min (>60); GFR (African American) 191 ML/MIN (>60); Glucose 86 mg/dl (74-100); Potassium 4.4 mmoL/L (3.5-5.1); Sodium 135 mmol/L (136-145)
== END ==
PROVIDERS: Visit Provider Anesthesiology
DX: Z01.812 Encounter for preprocedural laboratory examination (principal); Z20.822 Contact with and (suspected) exposure to COVID-19; Z79.899 Other long term (current) drug therapy; M51.36 Other intervertebral disc degeneration, lumbar region
CPT/HCPCS: 36415; 80048; 80305; 85025; U0003

== ENCOUNTER 2021-06-12 06:01 | Day surgery (SDC) | payer MEDICARE, SELFPAY ==
[2021-06-10 15:11] VITALS: BMI 19.7
[2021-06-12 06:32] VITALS: BP 126/66; PULSE 78; RESP 18; TEMP 36.9; O2SAT 97
--- NOTE | 2021-06-12 08:04 | HMH.ANESCL ---
[facility] Anesthesia Checklist - Patient Identification Patient Identification: Arm Band - Structural Data Admitted From: Home Planned Operative Procedure/s: Intrathecal Pain Pump Placement Consent for Planned Operative Procedure(s) Verified: Yes Verified Documents: Surgical Consent, History and Physical - NPO Status Verified Time NPO: 00:00 - Additional verifications Anesthesia Reactions: No Hx Blood Transfusions: No Blood Transfusion Reaction: No - Airway Assessment C-Spine Mobility Assessed: Yes (mp2) TMJ Mobility Assessed: Yes Dentition: Edentulous - Neurological Assessment Level of Consciousness: Awake, Alert - Anesthesia Plan Anesthesia Risk discussed: Yes Anesthesia Plan: Verified ASA Class: III Anesthesia Type: MAC [facility] History I have reviewed the patient's past medical history: Yes Medical History: Reports:: Chronic Obstructive Pulmonary Disease (COPD), Gastroesophageal Reflux Disease(GERD), Hyperlipidemia, Hypertension, Seizures (7 years ago) Denies:: Cancer, Diabetes Mellitus Type 1, Diabetes Mellitus Type 2, Internal Pacemaker, MRSA *Have you ever received a pneumonia vaccine?: No *Have you received a flu vaccine this season?: No Other Medical History: Reports: Arthritis. Denies: Blood Transfusion Reaction Anesthesia experience/problems:: nac Other Surgeries: Yes: Cholecystectomy, Hysterectomy-Total, Plastic Surgery, Other (face surgery). No: Pacemaker Amputation: Yes (ends of two fingers) Fractures: No - *Social History Last grade of school completed: 7th or 8th Smoking Status: Current every day smoker Tobacco Type: cigarettes # Packs/Day (cigarettes): 1 Alcohol Intake: never Substance Use Type: denies use *Occupational Status:: retired Housing: house Household Members: none *Travel in the last 8 weeks: None Family Hx:: Non-contributory
--- NOTE | 2021-06-12 09:08 | P.OP_ITS ---
Date of procedure: 06/12/21 Pre-op Diagnosis:: Degenerative disc disease of lumbar spine with lumbar radiculopathy symptoms. Post-op Diagnosis:: Same Procedure performed:: Permanent placement intrathecal catheter with tunneling for permanent intrathecal pain pump Surgeon:: Alexis Rivera MD EMPLOYEE RELATIONS REPRESENTATIVE:: Brian Lim Anesthesia: GETA Estimated blood loss (mL): 5 Clinical Note:: This patient is a pleasant 70-year-old white female who we are treating for low back pain with lumbar radiculopathy symptoms. She has failed all previous conservative therapy including oral pain medication, injections, physical therapy and she is not a surgical candidate. She is also previously undergone and failed a spinal cord stimulator trial. She has had a successful psych ological evaluation. She also has a successful intrathecal pump trial. She presents for permanent placement of intrathecal pain pump today. She was 80 to 100% better after her pump trial. She is also much more functional. Operative findings:: None Operative note:: Informed consent was obtained the risk and benefits of the procedure were exp lained to the patient. Patient was taken the operating room placed prone on the procedure table. She was prepped and draped in sterile fashion. C-arm fluoroscopy was used to view the lumbar spine. Skin and subtenons tissues adjacent to the L4-5 and L5-S1 interspace were anesthetized using lidocaine. I made an incision and dissected down to the lumbar paraspinous fascia. A 14- gauge spinal needle was inserted advanced into the L5-S1 interspace until clear CSF was obtained. After this intrathecal catheter was inserted advanced very easily to the L1 vertebral body. The needle was removed with the stylette was removed. We were able to freely withdraw clear CSF through the catheter. The catheter was secured to the fascia with 2 anchoring devices and 2-[address] Sharma prepared the pump pocket while I prepared the pump with 20 mL of intrathecal morphine 5 mg/mL. I tunneled catheter from the back to the pump pocket and attached catheter to the pump. We were able to freely withdraw clear CSF through the side-port. Both incisions were irrigated with bacitracin solution. Both incisions were then closed with 2-0 Vicryl followed by 4-0 nylon. A wound VAC was placed over both incisions. The patient was then placed in an abdominal binder taken recovery in stable condition. The pump was interrogated and started at 0.25 mg/day. Patient tolerated the procedure well with no complications. Patient was discharged home neurologically intact with good relief of pain symptoms. Plan and disposition: Follow-up with this patient in 1 week for wound check. We will follow-up in 2 weeks for suture removal. We will make adjustments if needed. If she has any problems or questions she is to call us back in the pain clinic. Condition: stable Disposition: PACU Complications:: None
--- NOTE | 2021-06-12 09:24 | P.OP_ITS ---
Date of procedure: 06/12/21 Pre-op Diagnosis:: Degenerative disc disease of the lumbar spine with radiculopathy Post-op Diagnosis:: Same Procedure performed:: Placement of right pain pump generator Surgeon:: Naif Sharma MD MACHINERY REPAIR MAINTENANCE SUPERVISOR:: Sky Smith, Nicolás Arciniega, Brian Lim, Scott Aguilar, Vance Lozada, Sumeet Michelle, Other Anesthesia: MAC, local Estimated blood loss (mL): 5 Operative findings:: Not applicable Operative note:: Patient was placed prone on the operating table. Her back and flank region was prepped and draped in sterile fashion. Once adequate IV sedation was obtained the anesthesia paraspinal incision was made by Dr. Connell which an intrathecal catheter was passed into the intrathecal space to the area desired by Dr. Harris. The catheter was fixed the paraspinal fascia with fixation devices and 2-0 Prolene suture. Right flank incision was made at which was made for a pocket for placement of the device. Utilizing a tunneling device the catheter was passed in the paraspinal incision to the pocket incision without difficulty. Generator connected to the catheter which was placed in the pocket. CSF was aspirated from the generator noting patency of the system. Both pockets irrigated with antibiotic solution. Subcutaneous tissues closed with 2-0 Vicryl. Skin closure in particular 4-0 nylon. Wound VAC dressing and a binder applied to the wound. The patient procedure well take per conversation. On recovery the patient will be discharged home with follow-up in 1 week for remov al of the wound VAC system in 2 weeks to remove the stitches. Bactrim DS twice daily per protocol for a week. The patient tolerated the procedure well Condition: stable Disposition: PACU Complications:: None
[2021-06-12 09:27] VITALS: BP 149/94; PULSE 87; RESP 18; TEMP 36.6; O2SAT 94
[2021-06-12 09:42] VITALS: BP 144/90; PULSE 78; RESP 18; TEMP 36.2; O2SAT 94
--- NOTE | 2021-06-12 09:44 | SUR.PHASEII ---
0927- abd binder over incision site right lower back- no drainage noted currently. Pt states pain #3 out of 1-5 scale. L.King COTTON
[2021-06-12 09:57] VITALS: BP 132/85; PULSE 79; RESP 18; O2SAT 95
--- NOTE | 2021-06-12 09:58 | PC.NURSE ---
called in Rx for Bactrim DS 1 tab po BID x 7 days per md order.
[2021-06-12 10:25] VITALS: BP 136/82; PULSE 76; RESP 18; O2SAT 94
== END 2021-06-12 10:33 | disposition home or self-care (01) ==
LOC: OR 06:04
PROVIDERS: PCP Internal Medicine; Visit Provider Anesthesiology
DX: M51.16 Intervertebral disc disorders with radiculopathy, lumbar region (principal); J44.9 Chronic obstructive pulmonary disease, unspecified; K21.9 Gastro-esophageal reflux disease without esophagitis; E78.5 Hyperlipidemia, unspecified; I10 Essential (primary) hypertension; M19.90 Unspecified osteoarthritis, unspecified site; Z72.0 Tobacco use; Z79.899 Other long term (current) drug therapy
CPT/HCPCS: 62350; 62362; 96374; C1755; C1772; J2704; J3370

== ENCOUNTER → 2021-06-20 14:09 | Outpatient (POV) | payer MEDICARE, SELFPAY ==
[2021-06-20 14:31] VITALS: BP 140/77; PULSE 115; RESP 18; O2SAT 93; BMI 19.7
--- NOTE | 2021-06-20 16:34 | P.PCN_ITS ---
- Procedure Date: 06/20/21 Time: 14:35 Anesthesiologist:: Peggy Almaraz APRN Complications:: None Pre-procedure Diagnosis:: Degenerative disc disease lumbar radiculopathy symptoms Post-procedure Diagnosis:: Same Indications for Procedure:: Patient is a pleasant 71-year-old white female who presents today for follow-up after implant of intrathecal pain pump. She did undergo implant on 06/12/2021. Patient is being treated for degenerative disc disease lumbar spine with lumbar radiculopathy symptoms. She does have morphine intrathecal therapy at 0.25 mg/day. Patient denies any side effects to the medicine and would like an increase. She is continuing to have pain. She says that her pain is a 7 or an 8 out of 10 today. She does say, however, she is starting to get some relief. She did try conservative therapies before undergoing implant. She will have her wound VAC removed today and will return to the clinic in 3 weeks for removal of sutures. Patient says she has been wearing her abdominal binder. Physical exam General: Alert and oriented x3, no acute distress, pleasant and cooperative, [on room air] Lungs: Respirations even and unlabored, symmetrical chest expansion Eyes: PERRL Musculoskeletal: Flexion and extension of [lumbar] [spine] somewhat guarded secondary to pain, strength in upper and lower extremities [5/5], [antalgic gait noted] Neurological: Speech clear, [visitor services associate equal], no gross sensory deficit Integumentary: Incision well approximated, no redness, no drainage, no edema noted to site. Sutures intact. Wound VAC removed. Abdominal binder reapplied. Procedure Details:: Informed consent was obtained and the risk and benefits of the procedure were explained to the patient. Patient was taken to the procedure room where noninvasive monitoring was placed including noninvasive blood pressure cuff and pulse oximeter. Patient's pump was interrogated and was reprogrammed to morphine at 0.28 mg/day. The patient tolerated the procedure well with no complications. Plan and Disposition:: Patient's incision is well approximated, no redness, no drainage, no edema noted to site. Sutures are intact. We will plan to follow-up with the patient in 2 weeks for removal of sutures. She has been advised to continue wearing her abdominal binder. She was increased with her intrathecal therapy today to morphine at 0.28 mg/day. We will see her back in 2 weeks and may adjust her at that time as well. Patient has been instructed to contact the clinic with any concerns before the next appointment. Dr. Rivera has reviewed this note and agrees with this plan of care. This note was dictated using voice recognition software and make contain errors or omissions.
== END ==
PROVIDERS: Visit Provider Clinical Nurse Specialist Family Health
DX: M51.16 Intervertebral disc disorders with radiculopathy, lumbar region (principal); Z45.1 Encounter for adjustment and management of infusion pump
CPT/HCPCS: 62368

== ENCOUNTER → 2021-07-08 11:40 | Outpatient (POV) | payer MEDICARE, SELFPAY ==
[2021-07-08 12:07] VITALS: BP 146/75; PULSE 85; RESP 18; O2SAT 92; BMI 21.1
--- NOTE | 2021-07-08 12:14 | [facility].PMPROC ---
- Procedure Date: 07/08/21 Time: 12:14 Anesthesiologist:: Peggy Almaraz APRN Complications:: None Pre-procedure Diagnosis:: Degenerative disc disease lumbar spine with lumbar radiculopathy symptoms Post-procedure Diagnosis:: Same Indications for Procedure:: Patient is a 71-year-old white female who presents today for suture removal. She has been treated for degenerative disc disease lumbar spine with lumbar radiculopathy symptoms. She did undergo intrathecal pain pump implant on 06/12/2021. She is doing well with her intrathecal therapy. Her pain is a 3 out of 10. She did have some worsening pain over the weekend due to doing outdoor activities she does state, however, that she is afraid to increase her dosing because of severe itching. She is taking Benadryl as needed for pruritus. Patient I did discuss if she continues to have worsening pruritus, we may need to change the medication in the pump. sutures will be removed today. The patient's incision is well approximated, no redness, no drainage, no edema noted to site. Patient has been wearing abdominal binder appropriately. She does have the binder on today. Physical exam General: Alert and oriented x3, no acute distress, pleasant and cooperative, [on room air] Lungs: Respirations even and unlabored, symmetrical chest expansion Eyes: PERRL Musculoskeletal: Flexion and extension of lumbar [spine] somewhat guarded secondary to pain, strength in upper and lower extremities [5/5], [antalgic gait noted] Neurological: Speech clear, [member service specialist equal], no gross sensory deficit Procedure Details:: Informed consent was obtained and the risk and benefits of the procedure were explained to the patient. Patient was taken to the procedure room where noninvasive monitoring was placed including noninvasive blood pressure cuff and pulse oximeter. Patient's pump was interrogated and was reprogrammed to continued at morphine at 0.28 mg/day. The patient tolerated the procedure well with no complications. Plan and Disposition:: Patient did initially request a pain pump adjustment, however, due to pruritus, she has deferred at this time. The patient sutures were removed, with no redness, drainage, or edema noted to the incision site. We will plan to follow-up with the patient at her next intrathecal refill date. She has been advised to continue wearing her abdominal binder at this time. If the patient continues to have itching, we may need to change the medication. She will contact the clinic. We will see the patient back in the clinic at the next intrathecal refill. Patient has been instructed to contact the clinic with any concerns before the next appointment. Dr. Rivera has reviewed this note and agrees with this plan of care. This note was dictated using voice recognition software and make contain errors or omissions.
== END ==
PROVIDERS: Visit Provider Clinical Nurse Specialist Family Health
DX: M51.16 Intervertebral disc disorders with radiculopathy, lumbar region (principal); Z45.1 Encounter for adjustment and management of infusion pump
CPT/HCPCS: 62368

== ENCOUNTER → 2021-08-26 12:47 | Outpatient (POV) | payer MEDICARE, SELFPAY ==
[2021-08-26 12:55] VITALS: BMI 21.1
--- NOTE | 2021-08-26 13:35 | [facility]H.PMPROC ---
- Procedure Date: 08/26/21 Time: 13:35 Anesthesiologist:: Peggy Almaraz APRN Complications:: None Pre-procedure Diagnosis:: Degenerative disc disease lumbar spine with lumbar radiculopathy symptoms Post-procedure Diagnosis:: Same Indications for Procedure:: Patient is a 71-year-old white female who presents today for intrathecal pain pump adjustment. The patient did have an intrathecal pain pump implanted on 06/12/2021. She is continuing to wear her binder. She is doing well overall, but is having some increased pain in her right low back area, right hip and right leg. The pain does intermittently migrate to the right knee and right foot. She does rate her pain a 4 out of 10 today. She would like an increase in her intrathecal therapy. She is currently on morphine at 0.28 mg/day. Patient's Jaciel and drug screens have been appropriate. Jaciel #[id number] has been reviewed and is appropriate. Drug screen is appropriate. Morphine equivalent is 0. Physical exam General: Alert and oriented x3, no acute distress, pleasant and cooperative Lungs: Respirations even and unlabored, symmetrical chest expansion Eyes: PERRL Musculoskeletal: Flexion and extension of lumbar [spine] somewhat guarded secondary to pain, [antalgic gait noted] Neurological: Speech clear, no gross sensory deficit Procedure Details:: Informed consent was obtained and the risk and benefits of the procedure were explained to the patient. Patient was taken to the procedure room where noninvasive monitoring was placed including noninvasive blood pressure cuff and pulse oximeter. Patient's pump was interrogated and was reprogrammed to morphine at 0.31 mg/day. The patient tolerated the procedure well with no complications. Plan and Disposition:: Patient was increased today with her intrathecal therapy for worsening right hip and right low back pain. The pain does intermittently go into the right leg knee and foot. She is scheduled to see Dr. Estevez at [facility] neurology in 1 month. She would like her records faxed to their office so that they are aware the patient did have an intrathecal pain pump placed for degenerative disc disease lumbar spine with lumbar radicular symptoms. The patient does have a refill appointment September 11. We will reassess her symptoms at that time. If she is continuing to have significant pain, we will increase her again. Patient does have a history of pruritus when the pump was initially implanted. We will monitor for pruritus as well. We will see the patient back in the clinic at the next intrathecal refill. Patient has been instructed to contact the clinic with any concerns before the next appointment. Dr. Rivera has reviewed this note and agrees with this plan of care. This note was dictated using voice recognition software and make contain errors or omissions.
== END ==
PROVIDERS: Visit Provider Clinical Nurse Specialist Family Health
DX: M51.16 Intervertebral disc disorders with radiculopathy, lumbar region (principal); Z45.1 Encounter for adjustment and management of infusion pump
CPT/HCPCS: 62368

== ENCOUNTER → 2021-09-02 10:13 | Outpatient (POV) | payer MEDICARE, SELFPAY ==
[2021-09-02 10:37] VITALS: BP 125/76; PULSE 83; RESP 18; O2SAT 98; BMI 21.1
--- NOTE | 2021-09-02 11:37 | HMH.PMPROC ---
- Procedure Date: 09/02/21 Time: 11:37 Anesthesiologist:: Peggy Almaraz APRN Complications:: None Pre-procedure Diagnosis:: Degenerative disc disease lumbar spine with lumbar radiculopathy symptoms Post-procedure Diagnosis:: Same Indications for Procedure:: Patient is a 71-year-old white female who presents today for intrathecal pain pump adjustment. She is having worse pain in her low back area and radiation into her lower extremities. She is having difficulty sleeping due to pain. At last visit we did increase the patient for morphine 0.28 mg/day to 0.31 mg/day. Previously, the patient was having pruritus with the medication. She says this has since subsided and she is tolerating the medication without any side effects. She does rate her pain a 4 out of 10 today. She would like an increase in her medicine. Jaciel #[id number] has been reviewed and is appropriate. Drug screen is appropriate. Patient also gets pregabalin 150 mg [address] Estevez. Physical exam General: Alert and oriented x3, no acute distress, pleasant and cooperative Lungs: Respirations even and unlabored, symmetrical chest expansion Eyes: PERRL Musculoskeletal: Flexion and extension of lumbar [spine] somewhat guarded secondary to pain, [antalgic gait noted] Neurological: Speech clear, no gross sensory deficit Procedure Details:: Informed consent was obtained and the risk and benefits of the procedure were explained to the patient. Patient was taken to the procedure room where noninvasive monitoring was placed including noninvasive blood pressure cuff and pulse oximeter. Patient's pump was interrogated and was reprogrammed to increase to morphine at 0.375 mg/day. The patient tolerated the procedure well with no complications. Plan and Disposition:: Patient was offered a bolus while in the clinic but she was driving herself today and did not feel comfortable receiving a bolus while in the clinic. She was increased today to morphine at 0.375 mg/day. We will see if this medication gives the patient any relief. She is scheduled to follow-up next week for medication we will see the patient back at the next intrathecal refill. Patient has been instructed to contact clinic if any questions or concerns before the next appointment. Dr. Rivera has reviewed this note and agrees with this plan of care. This note was dictated using voice recognition software and make contain errors or omissions. In the pump. We will plan to increase again at that time if needed. She has been advised if she does feel oversedated, to contact the clinic and we will decrease the dosing. We will see the patient back in the clinic at the next intrathecal refill. Patient has been instructed to contact the clinic with any concerns before the next appointment. Dr. Rivera has reviewed this note and agrees with this plan of care. This note was dictated using voice recognition software and make contain errors or omissions.
== END ==
PROVIDERS: Visit Provider Clinical Nurse Specialist Family Health
DX: M51.16 Intervertebral disc disorders with radiculopathy, lumbar region (principal); Z45.1 Encounter for adjustment and management of infusion pump
CPT/HCPCS: 62368

== ENCOUNTER 2021-09-10 13:29 | Day surgery (SDC) | payer MEDICARE, SELFPAY ==
[2021-09-10 13:49] VITALS: BP 151/84; PULSE 92; RESP 18; TEMP 36.6; O2SAT 91; BMI 21.1
--- NOTE | 2021-09-10 14:32 | HMH.PMPROC ---
- Procedure Date: 09/10/21 Time: 14:32 Anesthesiologist:: Peggy Almaraz APRN Complications:: None Pre-procedure Diagnosis:: Degenerative disc disease lumbar spine with lumbar radiculopathy symptoms, back pain Post-procedure Diagnosis:: Same Indications for Procedure:: Patient is a pleasant 71-year-old white female who presents today for intrathecal pain pump refill [and reprogram]. The patient is being treated for low back pain with lumbar radicular symptoms. She would like an increase today. She is only on morphine at 0.375 mg/day and denies any side effects.. Patient rates pain a 7 out of 10. Drug screen is appropriate. Jaciel [ ] has been reviewed and is appropriate. Physical exam General: Alert and oriented x3, no acute distress, pleasant and cooperative, [on room air] Lungs: Respirations even and unlabored, symmetrical chest expansion Eyes: PERRL Musculoskeletal: Flexion and extension of lumbar [spine] somewhat guarded secondary to pain, [antalgic gait noted] Neurological: Speech clear, no gross sensory deficit Procedure Details:: Informed consent was obtained and the risk and benefits of the procedure were explained to the patient. The patient was taken to the procedure room where noninvasive monitoring was placed including noninvasive blood pressure cuff and pulse oximeter. Patient's pump was interrogated. The area over the pump was cleansed with chlorhexidine as a cleansing solution. In sterile fashion the pump was accessed with a 22-gauge needle. Approximately 14 mls of the pump solution was removed and discarded appropriately. The pump was then refilled with 20 mL's of morphine 5 mg per male. The needle was withdrawn and a bandage was placed over the puncture site. The infusion rate was reprogrammed at increased to morphine at 0.4 mg/day. The patient tolerated well with no complication. Plan and Disposition:: Patient has been instructed to contact the clinic with any concerns before the next appointment. Dr. Rivera has reviewed this note and agrees with this plan of care. This note was dictated using voice recognition software and make contain errors or omissions. We will see the patient back in the clinic at the next intrathecal refill. Patient has been instructed to contact the clinic with any concerns before the next appointment. Dr. Rivera has reviewed this note and agrees with this plan of care. This note was dictated using voice recognition software and make contain errors or omissions. Risks and benefits of the medication have been explained in detail to the patient. The patient does understand the risk of dependence on the medication when given over a prolonged period. Patient has been advised of risks of oversedation with the prescribed medication. Narcan has been offered to the paitent in the event of oversedation. Patient has been advised that a family member should also be educated regarding administration of Narcan. The patient has been advised to consult with his/her primary care provider and pharmacist regarding drug-drug interaction of medications currently prescribed. Patient has been prescribed a controlled substance after being counseled on the medication, medication safety, and possible side effects. JACIEL report has been obtained and reviewed prior to prescription and found to be appropriate. Opioid contract was reviewed and signed by the patient, and that they have agreed to all of the terms set forth by our compliance program. Patient has been instructed to contact the clinic with any concerns before the next appointment. Dr. Rivera has reviewed this note and agrees with this plan of care. This note was dictated using voice recognition software and make contain errors or omissions.
[2021-09-10 14:35] VITALS: BP 128/86; PULSE 84; RESP 18; O2SAT 92
[2021-09-10 14:37] VITALS: PULSE 75; RESP 18; O2SAT 92
[2021-09-10 14:56] VITALS: BP 121/76; PULSE 81; RESP 20; O2SAT 91
== END 2021-09-10 14:58 | disposition home or self-care (01) ==
LOC: SC.PAINP 13:32
PROVIDERS: PCP Internal Medicine; Visit Provider Clinical Nurse Specialist Family Health
DX: M51.16 Intervertebral disc disorders with radiculopathy, lumbar region (principal); Z45.1 Encounter for adjustment and management of infusion pump
CPT/HCPCS: 62370; 80305

== ENCOUNTER → 2021-09-10 15:02 | Outpatient (CLI) | payer MEDICARE, SELFPAY ==
[2021-09-10 22:22] LABS: Amphetamine/Metha Screen,Urine Negative ng/ml (<1000)
[2021-09-10 22:23] LABS: Barbiturates Screen,Urine Negative ng/ml (<200)
[2021-09-10 22:24] LABS: Benzodiazepines Screen,Urine Negative ng/ml (<200); Cannabinoid Screen,Urine Negative ng/ml (<50)
[2021-09-10 22:25] LABS: Cocaine Screen,Urine Negative ng/ml (<300); Methadone Screen,Urine Negative ng/ml (<300)
[2021-09-10 22:26] LABS: Opiate Screen,Urine Negative ng/ml (<300)
[2021-09-10 22:27] LABS: Phencyclidine Screen,Urine Negative ng/ml (<25)
== END ==
PROVIDERS: Visit Provider Clinical Nurse Specialist Family Health
DX: Z79.899 Other long term (current) drug therapy (principal)
CPT/HCPCS: 80305

== ENCOUNTER → 2021-11-07 14:47 | Outpatient (POV) | payer MEDICARE, SELFPAY ==
[2021-11-07 15:07] VITALS: BP 118/69; PULSE 67; RESP 18; O2SAT 95; BMI 20.5
--- NOTE | 2021-11-07 15:19 | P.PCN_ITS ---
- Procedure Date: 11/07/21 Time: 15:19 Anesthesiologist:: Peggy Almaraz APRN Complications:: None Pre-procedure Diagnosis:: Degenerative disc disease lumbar spine with lumbar radiculopathy symptoms Post-procedure Diagnosis:: Same Indications for Procedure:: Patient is a 71-year-old white female who presents today for intrathecal pain pump adjustment. The patient is having worsening right low back pain with radiation into buttock and hip. She says that she also feels as though she is walking on sand on her right foot. She says this has been ongoing for approximately 1 week. She would like an increase in her intrathecal therapy. She is on morphine at 0.4 mg/day. She is having constipation with the medication. She has been advised to try [id number] medication such as stool softeners and laxatives. She has had to take MiraLAX in the past but has not taken it in approximately 6 years. Today, she rates her pain a 4 out of 10. Pain is made worse with standing or walking. Jaciel and drug screen have been appropriate. Jaciel #[id number] has been reviewed. Physical exam General: Alert and oriented x3, no acute distress, pleasant and cooperative Lungs: Respirations even and unlabored, symmetrical chest expansion Eyes: PERRL Musculoskeletal: Flexion and extension of lumbar [spine] somewhat guarded secondary to pain, [antalgic gait noted] Neurological: Speech clear, no gross sensory deficit Procedure Details:: Informed consent was obtained and the risk and benefits of the procedure were explained to the patient. Patient was taken to the procedure room where noninvasive monitoring was placed including noninvasive blood pressure cuff and pulse oximeter. Patient's pump was interrogated and was reprogrammed to morphi ne at 0.45 mg/day. The patient tolerated the procedure well with no complications. Plan and Disposition:: Patient does have a history of seizures?last seizure activity approximately 6 years ago. She does see neurology for this. As result we cannot give the patient tramadol for breakthrough pain. We will see the patient back in the clinic at the next intrathecal refill. Patient has been instructed to contact the clinic with any concerns before the next appointment. Dr. Rivera has reviewed this note and agrees with this plan of care. This note was dictated using voice recognition software and make contain errors or omissions.
== END ==
PROVIDERS: Visit Provider Clinical Nurse Specialist Family Health
DX: M51.16 Intervertebral disc disorders with radiculopathy, lumbar region (principal); Z45.1 Encounter for adjustment and management of infusion pump
CPT/HCPCS: 62368

== ENCOUNTER → 2021-12-09 13:37 | Day surgery (SDC) | payer MEDICARE, SELFPAY ==
--- NOTE | 2021-12-09 14:01 | P.PCN_ITS ---
- Procedure Date: 12/09/21 Time: 14:01 Anesthesiologist:: Manisha Fuentes MD Complications:: None Pre-procedure Diagnosis:: Degenerative disc disease of lumbar spine with lumbar radiculopathy Post-procedure Diagnosis:: Same Indications for Procedure:: Patient is a very pleasant 71-year-old white female who presents today for intrathecal pump. She has an intrathecal pump with a flow Mcroberts system with intrathecal morphine. She states that she continues to experience uncontrolled pain and is requesting an increase today. She rates her pain today as a 9 out of 10. Of note, she previously underwent a pump adjustment at her last clinic visit but unfortunately she states that she did not experience much pain relief with this increase. The plan for today is for the patient to undergo an intrathecal pump analysis and reprogramming with a increase in 20% to her constant flow rate. Procedure Details:: Analysis and reprogramming of intrathecal morphine pain pump Informed consent was obtained. The risk and benefits of the procedure were explained to the patient. Patient was taken to the procedure room. The pump was interrogated. Intrathecal [morphine infusion] was increased by [20]% to [0.54] mg/day. Patient tolerated the procedure well with no complications. Plan and Disposition:: We will follow-up with this patient in 2 weeks for reassessment of her chronic pain symptoms and further pump adjustment if indicated. I discussed with the patient to contact her clinic sooner should any issues arise. Jaciel #[id number] was reviewed and appropriate.
[2021-12-09 14:19] VITALS: BP 176/96; PULSE 79; RESP 20; TEMP 36.6; O2SAT 90; BMI 21.4
== END ==
PROVIDERS: PCP Internal Medicine; Visit Provider Anesthesiology Pain Medicine
DX: M51.16 Intervertebral disc disorders with radiculopathy, lumbar region (principal); Z45.1 Encounter for adjustment and management of infusion pump
CPT/HCPCS: 62368

== ENCOUNTER → 2022-01-06 08:24 | Outpatient (POV) | payer MEDICARE, SELFPAY ==
[2022-01-06 08:37] VITALS: BP 114/80; PULSE 84; RESP 20; TEMP 36.8; O2SAT 90; BMI 22.1
--- NOTE | 2022-01-06 10:05 | [facility].PMPROC ---
- Procedure Date: 01/06/22 Time: 09:00 Anesthesiologist:: Simeon Rodriges CRNA Complications:: None Pre-procedure Diagnosis:: Lumbar degenerative disc disease Post-procedure Diagnosis:: Same Indications for Procedure:: Alysis and reprogram of intrathecal morphine pain pump Procedure Details:: Consent was obtained. Risk and benefits of the procedure were explained to the patient. Patient was taken the procedure room. Pump was interrogated. Intrathecal morphine infusion was increased by 10% today. Patient tolerated procedure without difficulty. No Complications. Plan and Disposition:: Patient will follow up in 2 weeks for reassessment of her chronic pain symptoms.
== END ==
PROVIDERS: Visit Provider Nurse Anesthetist, Certified Registered
DX: M51.36 Other intervertebral disc degeneration, lumbar region (principal); Z45.1 Encounter for adjustment and management of infusion pump
CPT/HCPCS: 62368; 99212; G0463

== ENCOUNTER 2024-09-13 10:38 | Day surgery (SDC) | payer MEDICARE, SELFPAY ==
[2024-09-13 10:53] VITALS: BP 134/77; PULSE 70; RESP 16; TEMP 36.8; O2SAT 96; BMI 23.3
[2024-09-13 11:08] VITALS: BP 108/64; PULSE 72; RESP 18; O2SAT 94
[2024-09-13 11:09] VITALS: BP 108/64; PULSE 69; RESP 18; O2SAT 93
--- NOTE | 2024-09-13 11:17 | EXP.PAIN.PRO ---
Procedure Date: 09/13/24 Time: 11:00 Anesthesiologist:: Simeon Rodriges CRNA Complications:: None Pre-procedure Diagnosis:: Degenerative disc lumbar spine multilevels. Lumbar radiculopathy. Lumbar postlaminectomy syndrome. Lumbar spondylosis. Multilevel lumbar facet arthropathy Post-procedure Diagnosis:: Same. Indications for Procedure:: Patient is a pleasant 74-year-old female who comes our clinic today for intrathecal pain pump interrogation and refill. She is currently being managed with morphine sulfate 5 mg/mL at 0.6600 mg/day. She is doing very well at the current settings. She is not reporting any side effects or complications. She not requesting any changes. Patient is awake alert [place] x 3. No acute distress. Flexion-extension lumbar spine very guarded secondary to pain. Deep tendon reflexes upper and lower extremities normal. Motor strength upper and lower extremities normal. There is no gross sensory deficit. Gait is not evaluated. Patient arrives in wheelchair today. Procedure Details:: Details of the procedure explained to the patient. The patient taken procedure and placed in the sitting position. The area of the pump was cleansed using chlorhexidine as a cleansing solution. The pump was interrogated. The pump was accessed with ease using 22-gauge inch and half needle. 3.5 mL of solution was withdrawn discarded appropriate. The pump was then filled with 20 cc of solution containing morphine sulfate 5 mg/mL. Pump rate will continue at 0.6600 mg/day. Patient tolerated procedure without difficulty. There are no complications. Plan and Disposition:: Patient was discharged without incident.
[2024-09-13 11:18] VITALS: BP 129/76; PULSE 71; RESP 16; O2SAT 91
== END 2024-09-13 11:18 | disposition home or self-care (01) ==
PROVIDERS: PCP Family Medicine; Visit Provider Nurse Anesthetist, Certified Registered
DX: M51.16 Intervertebral disc disorders with radiculopathy, lumbar region (principal); M96.1 Postlaminectomy syndrome, not elsewhere classified; M47.26 Other spondylosis with radiculopathy, lumbar region
CPT/HCPCS: 95991

== ENCOUNTER 2025-02-14 16:03 | Outpatient (CLI) | payer MEDICARE, SELFPAY ==
[2025-02-14 16:40] LABS: Basophils % 0.4 % (0.1-2.0); Eosinophils # 0.5 Kmm3 (0.0-0.4); Eosinophils % 6.9 % (0.1-12.0); Lymphocytes # 3.3 K/mm3 (0.7-4.5); Lymphocytes % 45.8 % (10-50); Mean Corpuscular HGB Conc 33.3 g/dL (31.8-35.4); Mean Corpuscular Hemoglobin 28.3 pg (27.0-31.2); Mean Corpuscular Volume 84.9 fl (81-99); Mean Platelet Volume 10.2 fl (7.4-10.4); Monocytes # 0.5 K/mm3 (0.1-1.0); Monocytes % 6.8 % (1.7-9.3); Neutrophils # 2.9 K/mm3 (1.8-7.8); Nucleated Red Blood Cells # 0 10^3/uL; Nucleated Red Blood Cells % 0 %; Platelet Count 212 K/mm3 (142-424); Red Blood Count 4.24 M/mm3 (4.20-5.40); Red Cell Distribution Width 12.7 % (11.5-17.5); Red Cell Distribution Width-SD 38.4 fL; White Blood Count 7.2 K/mm3 (4.8-10.8)
[2025-02-14 17:08] LABS: Albumin Level 3.8 g/dl (3.5-5.0); Chloride 104 mmol/L (98-107); Sodium 141 mmol/L (136-145)
[2025-02-14 17:09] LABS: Potassium 4.1 mmoL/L (3.5-5.1)
[2025-02-14 17:11] LABS: Alanine Aminotransferase 47 U/L (12-78); Anion Gap 6.1 mEq/L (5-15); Aspartate Amino Transferase 55 U/L (14-36); Blood Urea Nitrogen 12 mg/dl (7-17); Carbon Dioxide 35 mmol/L (22.0-30.0); Cholesterol 130 mg/dl (140-200); Estimated Glomerular Filt Rate 98 ml/min (>60); GFR (African American) 119 ML/MIN (>60); Total Protein,Serum 6.6 g/dl (6.3-8.2); Triglycerides 90 mg/dl (30-150); VLDL Cholesterol 18 mg/dL (0-40)
[2025-02-14 17:12] LABS: Alkaline Phosphatase 73 U/L (38-126); Bilirubin,Indirect 0.8 mg/dL (0.0-0.9); Bilirubin,Total 0.8 mg/dl (0.2-1.3); Calcium 8.7 mg/dl (8.4-10.2); Chol/HDL Ratio 2.3 (1-3.5); Glucose 83 mg/dl (74-100); HDL Cholesterol 57 mg/dl (40-60); Magnesium 1.6 mg/dl (1.6-2.3)
[2025-02-14 17:20] LABS: NT Pro Brain Natriuretic Pep. 750 pg/mL (0-125)
[2025-02-14 17:22] LABS: Direct LDL Cholesterol 50.99 mg/dL (100-129)
[2025-02-14 17:27] LABS: Free T4 (Free Thyroxine) 1.15 ng/dl (0.78-2.19)
[2025-02-14 17:42] LABS: Thyroid Stimulating Hormone 1.53 uIU/mL (0.465-4.68)
== END 2025-02-14 23:59 | disposition home or self-care (01) ==
LOC: LAB 16:04
PROVIDERS: PCP Internal Medicine; Visit Provider Internal Medicine
DX: E78.5 Hyperlipidemia, unspecified (principal); I48.0 Paroxysmal atrial fibrillation; R94.31 Abnormal electrocardiogram [ECG] [EKG]; I10 Essential (primary) hypertension
CPT/HCPCS: 36415; 80048; 80061; 80076; 83735; 83880; 84439; 84443; 85025; 93225; 93226; 93227

== ENCOUNTER 2025-03-15 13:19 | Outpatient (POV) | payer MEDICARE, SELFPAY ==
--- OUTSIDE RECORDS SUMMARY | 2025-03-15 13:22 | XMS_ITS | Data Portability ---
Author Organization [facility] ADMIN Address [address] [place] [id number] Care Team Providers Care Buying Agent Name Role Phone AKSHAT TORRES Primary Care Provider Unavaila ble Assessment No assessment recorded. Plan of Treatment Reminders Order Date Submit Date Provider Last Modified By Organization Details Last Modified Time Details Appointments None recorded. Lab magnesium, serum or plasma 2024 025 CASSIE [facility], [address], [place], [address], 5 11:29:41 BMP, serum or plasma 2024 025 CASSIE [facility], [address] , [place], [address], 5 11:29:39 histoplasma Ab, complement fixation, serum 2024 [address] [facility] ([facility] ), [address], [place], [address], 5 08:49:44 histoplasma Ag, urine 2024 025 [facility] [address] (Registration ), [place], [address], 5 08:49:54 tb (M tuberculosi s), ifn-gamma nanci, blood [address] (Registration ), [place], [address], 5 08:50:04 erythrocyte sedimentati on rate by westergren method [address] (Registration ), [address], [place], [address], 5 08:50:14 C-reactive protein, quantitativ e, serum or plasma 2024 025 [facility] (Registration ), [address], [place], [address], 5 16:11:45 fungal antibody panel, serum [address] (Registration ), [address], [place], [address], 5 08:50:31 rf (rheumatoid factor), serum [address] (Registration ), [address], [place], [address], 5 08:50:43 MASSIEL (antinuclea r antibodies) panel, serum [address] (Registration ), [address], [place], [address], 5 08:50:55 anca panel, serum [address] (Registration ), [address], [place], [address], 5 08:52:29 ANSON (angiotensi n-convertin g enzyme), serum 2024 025 [facility] (Registration ), [place], [address], 5 16:11:47 proteinase 3 Ab, IgG, QN, serum [address] (Registration ), [facility] [address], [place], [address], 5 08:51:36 myeloperoxi dase Ab + proteinase 3 panel, serum [address] (Registration ), [place], [address], 5 08:51:47 histoplasma Ag, serum [address] (Registration ), [facility] [place], [address], 5 08:52:14 Referral cardiologis t referral 2024 025 [email or web address] Antony Piña MD, [address], [place], [address], 5 10:16:15 Procedures None recorded. Surgeries None recorded. Imaging CT, chest, w/o contrast [address] (Centralized Scheduling), [place], [address], 5 16:09:19 PET-CT, skull base to mid-thigh scan 2024 025 [facility] [place], [address], 5 11:11:48 Medication Orders cholestyram ine (with sugar) 4 gram powder for susp in a packet 2024 025 [facility], [address] [place], [address], 13:21:16 metronidazo le 500 mg tablet 2024 025 [facility], [address] [place], [address], 11:23:56 levofloxaci n 500 mg tablet 2024 025 [facility], [address] [place], [address], 16:01:34 Lactobacill us acidophilus 1 billion cell tablet 2024 025 inga [email or web address] [facility], [address] [place], [address], 11:48:59 Patient TargetsNo targets recorded. Patient Instructions Encounter Date Encounter Id Patient Instructions Last Modified By Organization Details Last Modified Time 12/01/2024 [id number] Check/ordered labs as above. Order PET scan in 2 weeks. Follow back up in 4 weeks. Levaquin 500 mg daily for 7 days for pneumonia. Probiotic 1 p.o. daily for 10 days. She was a CPAP and BIPAP failure. Added of ResMed Aircurve 08/05 with 2L O2 for her complex/central sleep apnea. Continue Air Curve each and every night full sleep cycle with )2. Continue O2 2L albuterol, Singulair, she is on Trelegy and Combivent. RTC in 3 -4 weeks [employer] is her [employer]. [email or web address] Not available 12/01/2024 11:50:37 12/13/2024 [id number] Today's visit is part of long-term chronic disease management as well as chronic wellness management. Ongoing efforts to consolidate and optimize care is the goal at each visit. Today's visit includes the management of surveillance laboratory studies, discussion of their values if necessary, in addition to the interaction of multiple comorbidities allowing for the necessary additional time required. [email or web address] Not available 12/13/2024 16:08:38 12/20/2024 [id number] Previously added Levaquin 500 mg daily for 7 days for pneumonia. Probiotic 1 p.o. daily for 10 days. She was a CPAP and BIPAP failure. Added of ResMed Aircurve 08/05 with 2L O2 for her complex/central sleep apnea. Continue Air Curve each and every night full sleep cycle with O2. Continue O2 2L albuterol q4hr prn, Singulair, she is on Trelegy and Combivent. Repeat compliance report in [address] scan of chest January 2025, follow-up in February 2025. [employer] is her [employer]. 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 Referring Physician: Erin Joe, Family Medicine, Encounter Date: 12/13/2024 Results Created Date Observation Date Name Description Value Unit Range Abnormal Flag Note LastModifiedBy Organization Detail LastModifiedTime 11/24/19 25 11/24/2024 ALPHA 1 ANTIT RYPSI N note SEE NOTE Order ing Provi estrada: Jacqueline parry MD Not Available [address] [place], [address], 11/26/2024 09:12:45 11/24/19 25 11/24/2024 ALPHA 1 ANTIT RYPSI N alpha 1 antitrypsin 182 mg/dL 101-18 7 Perfo rmed At: CB, [facility] [address] [place], [address] 7529 [facility] michael rivera, PhD, Phone : [phone] Not Available [address] [place], [address], 11/26/2024 09:12:45 11/24/19 25 11/24/2024 ALPHA 1 ANTIT RYPSI N performing lab SEE NOTE LC2 - LAB[facility] RP VALERIY T# [id number] [id number] [place] [address] Not Available [address] [place], [address], 11/26/2024 09:12:45 12/01/19 25 12/01/2024 SEDIM ENTAT ION RATE note SEE NOTE Order ing Provi estrada: Jacqueline parry MD Not Available [address] , [place], [address], 12/01/2024 13:53:40 12/01/19 25 12/01/2024 SEDIM ENTAT ION RATE sedimentatio n rate 13 mm/HR 0-30 normal Not Available [address] , [place], [address], 12/01/2024 13:53:40 12/01/19 25 12/01/2024 SEDIM ENTAT ION RATE performing lab SEE NOTE ML [facility] [address] [place] [address] Not Available [address] , [place], [address], 12/01/2024 13:53:40 12/01/19 25 12/01/2024 C-ERAN CTIVE PROTE IN note SEE NOTE Order ing Provi estrada: Jacqueline parry MD Not Available [address] , [place], [address], 12/02/2024 16:11:45 12/01/19 25 12/01/2024 C-ERAN CTIVE PROTE IN C-reactive protein <5.0 mg/L <5.0 NOT E NEW REFER ENCE RANGE S Not Available [address] , [place], [address], 12/02/2024 16:11:45 12/01/19 25 12/01/2024 C-ERAN CTIVE PROTE IN performing lab SEE NOTE ML - [facility] [address] [place] [address] Not Available [address] , [place], [address], 12/02/2024 16:11:45 12/01/19 25 12/01/2024 ANGIO TENSI N-I CONVE RTING ENZ note SEE NOTE Order ing Provi estrada: Jacqueline parry MD Not Available [address] , [place], [address], 12/02/2024 16:11:46 12/01/19 25 12/01/2024 ANGIO TENSI N-I CONVE RTING ENZ angiotensin- I converting enz 64 U/L 14-82 Perfo rmed At: CB, [facility] [address] [place], [address]333 Jt michael rivera, PhD, Phone : [phone] Not Available [address] , [place], [address], 12/02/2024 16:11:46 12/01/19 25 12/01/2024 ANGIO TENSI N-I CONVE RTING ENZ performing lab SEE NOTE LC2 - LAB[facility] RP CLIEN T# [id number] [phone] [place] [address] Not Available [address] [place], [address], 12/02/2024 16:11:46 12/01/19 25 12/01/2024 AB ANTI NEUTR OPHIL CYTOP LASMI C note See Note Order ing Provi estrada: Jacqueline parry MD Not Available [address] [place], [address], 12/02/2024 20:11:20 12/01/19 25 12/01/2024 AB ANTI NEUTR OPHIL CYTOP LASMI C Ab cytoplasmic C anca <1:20 titer neg:<1 :20 Not Available [address] [place], [address], 12/02/2024 20:11:20 12/01/19 25 12/01/2024 AB ANTI NEUTR OPHIL CYTOP LASMI C Ab perinuclear P anca <1:20 titer neg:<1 :20 The prese nce of posit deep fluor escen ce exhib iting P-ANC A or C-ANC A patte rns alone is not speci fic for the diagn osis of Wegen er's Granu lomat osis (WG) or micro scopi c polya ngiit is. Decis ions about treat ment shoul d not be based solel y on ANCA IFA resul ts. The Inter natio nal ANCA Group Conse nsus recom mends follo w up testi ng of posit deep sera with both WI- 3 and MPO-A NCA enzym e immun oassa ys. As many as 5% serum sampl es are posit deep only by EIA. Ref. AM J Clin Patho l 1999; 111:5 07-51 3. Not Available [address] [place], [address], 12/02/2024 20:11:20 12/01/19 25 12/01/2024 AB ANTI NEUTR OPHIL CYTOP LASMI C Ab atypical anca <1:20 titer neg:<1 :20 The atypi kiki pANCA patte rn has been obser tina in a signi fican t perce ntage of patie nts with ulcer ative colit is, prima ry scler osing chola ngiti s and autoi mmune hepat itis. Perfo rmed At: CB, [facility] n [address] [place], [address] 4[address] Jt rivera, PhD, Phone : [phone] Not Available [address] [place], [address], 12/02/2024 20:11:20 12/01/19 25 12/01/2024 AB ANTI NEUTR OPHIL CYTOP LASMI C performing lab see note LC2 - [facility] RP VALERIY T# [id number] [place] [address] Not Available [address] , [place], [address], 12/02/2024 20:11:20 12/01/19 25 12/01/2024 QUANT IFERO N TB GOLD (QFT- G) note SEE NOTE Order ing Provi estrada: Jacqueline parry MD Not Available [address] , [place], [address], 12/03/2024 07:09:10 12/01/19 25 12/01/2024 QUANT IFERO N TB GOLD (QFT- G) quantiferon TB incubation INFCE Resul t: Incub ation perfo rmed. INFCE Resul t Refer ence Range : () Not Available [address] , [place], [address], 12/03/2024 07:09:10 12/01/19 25 12/01/2024 QUANT IFERO N TB GOLD (QFT- G) quantiferon TB nil value 0.01 IU/mL () Not Available [address] , [place], [address], 12/03/2024 07:09:10 12/01/19 25 12/01/2024 QUANT IFERO N TB GOLD (QFT- G) quantiferon TB mitogen value > 10.00 IU/mL () Not Available [address] , [place], [address], 12/03/2024 07:09:10 12/01/19 25 12/01/2024 QUANT IFERO N TB GOLD (QFT- G) quantiferon TB gold criteria COMMEN T () . Quant iFERO N-TB Gold Plus is a quali tativ e indir ect test for M tuber culos is infec tion (incl uding disea se) and is inten ded for use in conju nctio n with risk asses sment , radio graph y, and other medic al and diagn ostic evalu ation s. The Quant iFERO N-TB Gold Plus resul t is deter mined by subtr actin g the Nil value from eithe r TB antig en (Ag) value . The Mitog en tube serve s as a contr ol for the test. Not Available [address] [place], [address], 12/03/2024 07:09:10 12/01/19 25 12/01/2024 QUANT IFERO N TB GOLD (QFT- G) quantiferon TB1 Ag value 0.01 IU/mL () Not Available [address] [place], [address], 12/03/2024 07:09:10 12/01/19 25 12/01/2024 QUANT IFERO N TB GOLD (QFT- G) quantiferon TB2 Ag value 0 IU/mL () Not Available [address] [place], [address], 12/03/2024 07:09:10 12/01/19 25 12/01/2024 QUANT IFERO N TB GOLD (QFT- G) quantiferon TB gold plus NEGATI VE negati ve No respo nse to M tuber culos is antig ens detec iesha. Infec tion with M tuber culos is is unlik holly, but high risk indiv idual s shoul d be consi dered for addit ional testi ng (ATS/ IDSA/ CDC Clini kiki Pract ice Guide lines , 2017) . The refer ence range is an Antig en minus Nil resul t of <0.35 IU/mL . Chemi lumin escen ce immun oassa y metho dolog y Perfo rmed At: CB, [facility] [address] [facility], [place], [address] 1445 Jt michael rivera, PhD, Phone : [phone] Not Available [address] [place], [address], 12/03/2024 07:09:10 02/06/20 25 12/01/2024 QUANT IFERO N TB GOLD (QFT- G) performing lab SEE NOTE LC2 - LAB[facility] RP CLIEN T# [id number] [address] [place] [address] Not Available [address] , [place], [address], 12/03/2024 07:09:10 12/01/19 25 12/01/2024 AB PROTE INASE 3 note SEE NOTE Order ing Provi estrada: Jacqueline parry MD Not Available [address] , [place], [address], 12/05/2024 20:09:17 12/01/19 25 12/01/2024 AB PROTE INASE 3 Ab proteinase 3 <0.2 units 0.0-0. 9 Perfo rmed At: BN, [facility] [place] [facility] [address] [facility] [place], [address] 1797 Rosenda perry MD, Phone : [phone] Not Available [address] [place], [address], 12/05/2024 20:09:17 12/01/19 25 12/01/2024 AB PROTE INASE 3 performing lab SEE NOTE LC2 - LAB[facility] RP CLIEN T# [id number] 022 4501 [place] [address] Not Available [address] [place], [address], 12/05/2024 20:09:17 12/01/19 25 12/01/2024 AB MYELO PEROX IDASE note SEE NOTE Order ing Provi estrada: Jacqueline parry MD Not Available [address] [place], [address], 12/06/2024 03:09:44 12/01/19 25 12/01/2024 AB MYELO PEROX IDASE Ab myeloperoxid ase <0.2 units 0.0-0. 9 Perfo rmed At: BN, [facility] [place] [facility] [address] [facility] , [place], [address] Rosenda perry MD, Phone : [phone] Not Available [address] [place], [address], 12/06/2024 03:09:44 12/01/19 25 12/01/2024 AB MYELO PEROX IDASE performing lab SEE NOTE LC2 - LAB[facility] RP CLIEN T# [id number] [phone] [place] [address] Not Available [address] [place], [address], 12/06/2024 03:09:44 12/01/19 25 12/01/2024 AB FUNGA L QUANT ITATI VE note SEE NOTE Order ing Provi estrada: Jacqueline parry MD Not Available [address] , [place], [address], 12/06/2024 16:10:41 12/01/19 25 12/01/2024 AB FUNGA L QUANT ITATI VE Ab aspergillus flavus NEGATI VE neg:<1 :1 Not Available [address] [place], [address], 12/06/2024 16:10:41 12/01/19 25 12/01/2024 AB FUNGA L QUANT ITATI VE Ab aspergillus niger NEGATI VE neg:<1 :1 Not Available [address] [place], [address], 12/06/2024 16:10:41 12/01/19 25 12/01/2024 AB FUNGA L QUANT ITATI VE Ab aspergillus fumigatus NEGATI VE neg:<1 :1 Not Available [address] [place], [address], 12/06/2024 16:10:41 12/01/19 25 12/01/2024 AB FUNGA L QUANT ITATI VE Ab blastomyces qn did NEGATI VE neg:<1 :1 Perfo rmed At: BN, [facility] [place] [facility] [address] [facility] [place], [address] Rosenda perry MD, Phone : [phone] Not Available [address] , [place], [address], 12/06/2024 16:10:41 12/01/19 25 12/01/2024 AB FUNGA L QUANT ITATI VE performing lab SEE NOTE LC2 - LAB[facility] RP CLIEN T# [id number] [place] [address] Not Available [address] [place], [address], 12/06/2024 16:10:41 12/01/19 25 12/01/2024 RHEUM ATOID FACTO R TITER note SEE NOTE Order ing Provi estrada: Jacqueline parry MD Not Available [address] [place], [address], 12/08/2024 11:10:06 12/01/19 25 12/01/2024 RHEUM ATOID FACTO R TITER rheumatoid factor titer 12.2 IU/mL <14.0 Not Available [address] [place], [address], 12/08/2024 11:10:06 12/01/19 25 12/01/2024 RHEUM ATOID FACTO R TITER performing lab SEE NOTE LC2 - [facility] RP CLIEN T# [id number] [place] [address] Not Available [address] [place], [address], 12/08/2024 11:10:06 12/01/19 25 12/01/2024 ANTIN UCLEA R ANTIB ODIES TITER note SEE NOTE Order ing Provi estrada: Jacqueline parry MD Not Available [address] , [place], [address], 12/08/2024 11:10:07 12/01/19 25 12/01/2024 ANTIN UCLEA R ANTIB ODIES TITER MASSIEL screen NEGATI VE () Negat deep <1:80 Borde rline 1:80 Posit deep >1:80 ICAP nomen clatu re: AC-0 For more infor dinesh de guzman about Hep-2 cell patte rns use ANApa ttern s.org , the offic ial hal te for the Inter natio nal Conse nsus on Antin uclea r Antib lili (MASSIEL) Patte rns (ICAP ). Perfo rmed At: CB, [facility] [address] [place], [address] 0626 [facility] Lissett rivera, PhD, Phone : [phone] Not Available [address] , [place], [address], 12/08/2024 11:10:07 12/01/19 25 12/01/2024 ANTIN UCLEA R ANTIB ODIES TITER performing lab SEE NOTE LC2 - LAB[facility] RP CLIEN T# [id number] [place] [address] Not Available [address] , [place], [address], 12/08/2024 11:10:07 12/01/19 25 12/01/2024 QUANT IFERO N TB GOLD (QFT- G) note See Note Order ing Provi estrada: Jacqueline parry MD Not Available [address] , [place], [address], 12/08/2024 11:10:09 12/01/19 25 12/01/2024 QUANT IFERO N TB GOLD (QFT- G) quantiferon TB incubation INFCE Resul t: Incub ation perfo rmed. INFCE Resul t Refer ence Range : () Not Available [address] , [place], [address], 12/08/2024 11:10:12/01/19 25 12/01/2024 QUANT IFERO N TB GOLD (QFT- G) quantiferon TB nil value 0.01 IU/mL () Not Available [address] , [place], [address], 12/08/2024 11:10:09 12/01/19 25 12/01/2024 QUANT IFERO N TB GOLD (QFT- G) quantiferon TB mitogen value > 10.00 IU/mL () Not Available [address] , [place], [address], 12/08/2024 11:10:12/01/19 25 12/01/2024 QUANT IFERO N TB GOLD (QFT- G) quantiferon TB gold criteria Commen t () . Quant iFERO N-TB Gold Plus is a quali tativ e indir ect test for M tuber culos is infec tion (incl uding disea se) and is inten ded for use in conju nctio n with risk asses sment , radio graph y, and other medic al and diagn ostic evalu ation s. The Quant iFERO N-TB Gold Plus resul t is deter mined by subtr actin g the Nil value from eithe r TB antig en (Ag) value . The Mitog en tube serve s as a contr ol for the test. Not Available [address] , [place], [address], 12/08/2024 11:10:09 12/01/19 25 12/01/2024 QUANT IFERO N TB GOLD (QFT- G) quantiferon TB1 Ag value 0.01 IU/mL () Not Available [address] [place], [address], 12/08/2024 11:10:09 12/01/19 25 12/01/2024 QUANT IFERO N TB GOLD (QFT- G) quantiferon TB2 Ag value 0 IU/mL () Not Available [address] [place], [address], 12/08/2024 11:10:09 12/01/19 25 12/01/2024 QUANT IFERO N TB GOLD (QFT- G) quantiferon TB gold plus Negati ve negati ve No respo nse to M derian taoos is antig ens detec iesha. Infec tion with M derian taoos is is unlik holly, but high risk indiv idual s shoul d be consi dered for addit ional testi ng (ATS/ IDSA/ CDC Clini kiki Pract ice Guide lines , 2017) . The refer ence range is an Antig en minus Nil resul t of <0.35 IU/mL . Chemi lumin escen ce immun oassa y metho dolog y Perfo rmed At: CB, [facility] [address] [facility], [place], [address] Jt rivera, PhD, Phone : [phone] Not Available [address] , [place], [address], 12/08/2024 11:10:09 12/01/19 25 12/01/2024 QUANT IFERO N TB GOLD (QFT- G) performing lab see note LC2 - LAB[facility] RP CLIEN T# [phone] [place] [address] Not Available [address] [place], [address], 12/08/2024 11:10:09 12/01/19 25 12/01/2024 AG HISTO PLASM A SER note SEE NOTE Order ing Provi estrada: Jacqueline parry MD Not Available [address] [place], [address], 12/10/2024 07:16:12 12/01/19 25 12/01/2024 AG HISTO PLASM A SER Ag histoplasma ser SEE BELOW AG HISTO PLASM A SER(F ) Alexis Date/ Time: 12/01 12:48 Marilyn Date/ Time: 12/10 07:14 SOURC E: BLOOD SPEC DESC: . Histo plasm a Antig en Refer ence Range s: Negat deep 0.00 - 5.50 Equiv ocal 5.51 - 6.50 Posit deep >6.50 Repea t testi ng is sugge sted if resul t does not suppo rt clini kiki prese ntati on. A very small perce ntage of patie nts with histo plasm osis will have a posit deep antig en test resul t in serum and a negat deep urine antig en test resul t. While the Histo plasm a antig en test is quite speci fic, such a test resul t raise s quest ions of false posit ivity cause d by a numbe r of facto rs inclu ding Rheum atoid Facto r. CBRG requi res that a urine speci men be teste d when the antig en test in serum is posit deep. A posit deep histo plasm osis serum test coupl ed with a negat deep urine antig en test must be evalu ated in light of clini kiki signs and sympt oms. This test was devel oped and its perfo rmanc e aime cteri stics deter mined by [employer] [facility] . It has not been clear ed or appro tina by the U.S. Food and Drug Admin istra tion. The resul t of this assay can be used for clini kiki diagn osis witho ug FDA appro krystian. [employer] is a CLIA certi fied, CAP accre dited labor atory for perfo rming high compl exity assay s such as this one. RESUL T: NONE DETEC IESHA Not Available [address] , [place], [address], 12/10/2024 07:16:12 12/01/19 25 12/01/2024 AG HISTO PLASM A SER performing lab SEE NOTE LC2 - LAB[facility] RP CLIEN T# [id number] 022 [address] [place] [address] Not Available [address] [place], [address], 12/10/2024 07:16:12 12/01/19 25 12/01/2024 AG HISTO PLASM A UR note SEE NOTE Order ing Provi estrada: Jacqueline parry MD Not Available [address] [place], [address], 12/10/2024 07:18:19 12/01/1912/01/2024 AG HISTO PLASM A UR Ag histoplasma ur SEE BELOW AG HISTO PLASM A UR(F) Alexis Date/ Time: 12/01 12:48 Marilyn Date/ Time: 12/10 07:16 SOURC E: URINE SPEC DESC: VOID RESUL T: NEGAT DEEP Not Available [address] [place], [address], 12/10/2024 07:18:19 12/01/1912/01/2024 AG HISTO PLASM A UR performing lab SEE NOTE LC2 - LAB[facility] RP CLIEN T# [id number] 022 2240 [address] [place] [address] Not Available [address] [place], [address], 12/10/2024 07:18:19 12/01/1912/01/2024 AB HISTO PLASM A-CF note See Note Order ing Provi estrada: Jacqueline parry MD Not Available [address] [place], [address], 12/20/2024 12:33:02 12/01/19 25 12/01/2024 AB HISTO PLASM A-CF Ab histoplasma mycelial CF Negati ve neg:<1 :2 Not Available [address] , [place], [address], 12/20/2024 12:33:02 12/01/19 25 12/01/2024 AB HISTO PLASM A-CF Ab histoplasma yeast CF Negati ve neg:<1 :2 Perfo rmed At: BN, [facility] [place] [facility] [address] [facility] , [place], [address] 7513 Rosenda perry MD, Phone : [phone] Not Available [address] , [place], [address], 12/20/2024 12:33:02 12/01/19 25 12/01/2024 AB HISTO PLASM A-CF performing lab see note LC2 - LAB[facility] RP CLIEN T# [id number] [phone] [place] [address] Not Available [address] , [place], [address], 12/20/2024 12:33:02 03/01/20 25 03/02/2025 BASIC METAB OLIC PANEL (8) glucose 101 mg/dL 70-99 above high normal Not Available [facility]) [address] [place], [address], 03/02/2025 11:29:39 03/01/20 25 03/02/2025 BASIC METAB OLIC PANEL (8) BUN 13 mg/dL 8-27 normal Not Available [facility] ([facility]) [address] [place], [address], 03/02/2025 11:29:39 03/01/20 25 03/02/2025 BASIC METAB OLIC PANEL (8) creatinine 0.63 mg/dL 0.57-1 .00 normal Not Available [facility] ([facility]) [address] [place], [address], 03/02/2025 11:29:39 03/01/20 25 03/02/2025 BASIC METAB OLIC PANEL (8) eGFR 94 mL/mi n/1.7 3 >59 normal Not Available [facility] ([facility]) [address] [place], [address], 03/02/2025 11:29:39 03/01/20 25 03/02/2025 BASIC METAB OLIC PANEL (8) BUN/creatini ne ratio 21 12-28 normal Not Available [facility]) [address] [place], [address], 03/02/2025 11:29:39 03/01/20 25 03/02/2025 BASIC METAB OLIC PANEL (8) sodium 140 mmol/ L 134-14 4 normal Not Available [facility] ([facility]) [address] [facility], [place], [address], 03/02/2025 11:29:39 03/01/20 25 03/02/2025 BASIC METAB OLIC PANEL (8) potassium 4.6 mmol/ L 3.5-5. 2 normal Not Available [facility] ([facility]) [address] [facility], [place], [address], 03/02/2025 11:29:39 03/01/20 25 03/02/2025 BASIC METAB OLIC PANEL (8) chloride 101 mmol/ L 96-106 normal Not Available [facility] ([facility]) [address] [place], [address], 03/02/2025 11:29:39 03/01/20 25 03/02/2025 BASIC METAB OLIC PANEL (8) carbon dioxide, total 25 mmol/ L 20-29 normal Not Available [facility] ([facility]) [address] [place], [address], 03/02/2025 11:29:39 03/01/20 25 03/02/2025 BASIC METAB OLIC PANEL (8) calcium 10.0 mg/dL 8.7-10 .3 normal Not Available [facility] ([facility]) [address], [place], [address], 03/02/2025 11:29:39 03/01/2003/02/2025 MAGNE SIUM magnesium 1.8 mg/dL 1.6-2. 3 normal Not Available [facility] ([facility]) [address] [facility], [place], [address], 03/02/2025 11:29:41 11/24/19 25 11/24/2024 CT, chest , w/o contr ast [facility] Name: TAVIA BRYANT [employer] Phys: Milena marcelino MD, [place] [address] : 1949 Age: 74 Sex: F Acct: [id number] Loc: G.CT PHONE #: Exam Date: 2024 Status : REG CLI FAX #: Rad# [id number] Unit# [id number] Admit Date: 2024 EXAMS: CPT CODE: [id number] CT CHEST W/[place] [address] HISTOR Y: RADIOL OGIC INFILT RATE OF LUNG COMPAR SHANIKA: LDCT 2023 TECHNI QUE: Routin e CT scan of the chest with sagitt al and soriano l reform atted images . CONTRA ST: None FINDIN GS: Heart and medias tinum: Heart size upper limits normal with some left atrial promin ence noted. Calcif ied plaque proxim al LAD. Normal calibe r aorta with athero sclero sis. Lymph nodes: Enlarg ed right paratr acheal lymph node measur es 1.8 cm compar ed to 2.5 cm on previo us study but subjec tively appear s simila r. No other suspic ious lymph node enlarg ement. Lungs and pleura l: The right lung nodula r airspa ce consol idatio n is signif icantl y improv ed with residu al opacit ies predom inatin g in the superi or segmen t of the lower lobe. Howeve r, in the supply and distribution manager ior right upper lobe on image 23 of series 3 is a 1.5 cm irregu lar nodule which appear s to repres ent increa se in size of a 9 mm nodule seen on the previo us study. Bones and soft tissue s: No acute abnorm ality. Multil evel degene rative change s thorac ic spine. Thyroi d: Low attenu ation supply and distribution manager ior left lobe nodule measur es 1.7 cm and not well seen on the LDCT due to techni que as well as streak artifa ct. Includ ed upper abdome n: Intrah epatic bile duct dilata tion noted. IMPRES ILA: 1. Overal l there has been signif icant improv ement of the nodula r right lung airspa ce consol idatio n seen on the old the CT consis tent with resolv ing inflam matory proces s. 2. Increa se in size of a nodule in the supply and distribution manager ior right upper lobe from 0.9 cm PAGE 1 Signed Report (KRISTEL NUED) [facility] Ce Name: TAVIA BRYANT [employer] Phys: Milena marcelino MD, Gareth Corder[place] [address] : 1949 Age: 74 Sex: F Acct: [id number] Loc: G.CT PHONE #: Exam Date: 2024 Status : REG CLI FAX #: Rad# [id number] Unit# [id number] Admit Date: 2024 EXAMS: CPT CODE: [id number] CT CHEST W/[place] [address] to 1.5 cm. Recomm end PET/CT . 3. Right paratr acheal lymph node enlarg ement. Electr onical ly Signed by: Charis Martinez MD All CT scans at [facility] are perfor med using dose optimi zation techni ques as approp riate to a perfor med exam includ ing the follow ing: Automa iesha exposu re contro l Adjust ment of the mA and/or kV accord ing to patien t size (this includ es techni ques or standa rdized protoc ols for target ed exams where dose is matche d to indica tion / reason for exam; i.e. extrem ities or head) Use of iterat deep recons tructi on techni que Electr onical ly Signed by CHARIS MARTINEZ on 2024 at 1643 Report ed and signed by: CHARIS MARTINEZ CC: Micha marcelino M.D.; Akshat medrano MD Dictat ed Date/T mike: 2024 (1642) Techno logist : KEN Castelan Transc ribed Date/T mike: 2024 (1642) Transc riptio nist: DO Electr onic Signat ure Date/T mike: 2024 (1642) Printe d Date/T mike: 2024 (1700) BATCH NO: N/A PAGE 2 Signed Report CC'ed Logic: Orderi ng Provid er: MILENA FIGUEREDO Y Attend ing Provid er: MILENA HUFFMANRE Y Referr ing Provid er: MILENA HUFFMANRE Y Consul ting Provid er: STEVENSON [email or web address] [place], [address], 11/24/2024 18:25:39 12/01/19 25 11/24/2024 CT, chest , w/o contr ast No observ ation record ed. [email or web address] [place] (Centralized Scheduling) [address] [place] [address] [place], [address], 12/01/2024 13:51:50 12/19/19 25 12/19/2024 PET-C T, skull base to mid-t high scan [facility] Name: TAVIA BRYANT [employer] [facility] Phone.com Phys: [place] [address] : 1949 Age: 74 Sex: F Acct: [id number] Loc: G.PET PHONE #: [phone] Exam Date: 2024 Status : DEP CLI FAX #: Rad# [id number] Unit# [id number] Admit Date: 2024 EXAMS: CPT CODE: [id number] PET W/CT SKULL- MID THIGH 92862 Histor y: Multip le lung nodule s Compar shanika: None. Interp retati on: PET/CT imagin g was obtain ed from the skull base throug h the mid-th igh follow ing the intrav enous admini strati on of 10.5 mCi of F-18 FDG. Blood glucos e level was 99 mg/dL at the time of inject ion. Uptake time was 60 minute s. Low dose non-co ntrast ed CT examin ation was obtain ed at the same levels and interp reted on the [employer] er workst ation. The low dose CT examin ation is limite d to attenu ation correc tion and anatom ic correl ation and is not diagno stic. Small nodule within the left upper lobe supply and distribution manager iorly is presen t measur ing approx imatel y 9 mm in diamet er. This lesion demons trates a subtle uptake of radiot racer activi ty with juli l SUV of approx imatel y 3.0. Signif icant pleura l-pare nchyma l scarri ng at the right lung base is noted. No other focal abnorm al areas of radiot racer accumu lation are identi fied. Below the diaphr agm, physio logic distri bution of radiot racer activi ty is observ ed. Normal renal excret ion of radiot racer activi ty is seen. Mild gut activi ty is noted. Impres ila: Small nodule within the left upper lobe as above. This lesion demons trates a subtle uptake of radiot racer activi ty. While this lesion may repres ent a benign granul ashia, uptake of radiot racer activi ty is somewh at concer salomon and biopsy should be consid ered. Altern ativel y, short interv al follow -up with repeat CT of the chest in 3-6 months may be perfor med. No other focal abnorm al areas of radiot racer accumu lation are identi fied. Electr onical ly Signed by: Mike London MD PAGE 1 Signed Report (KRISTEL NUED) [facility] Ce Name: TAVIA BRYANT [address] [place] [address] Phone.[email or web address] Phys: Milena marcelino MD, [place] [address] : 1949 Age: 74 Sex: F Acct: [id number] Loc: Alex.PET PHONE #: [phone] Exam Date: 2024 Status : DEP CLI FAX #: Rad# [id number] Unit# [id number] Admit Date: 2024 EXAMS: CPT CODE: [id number] PET W/CT SKULL- MID THIGH [address] scans at [facility] are perfor med using dose optimi zation techni ques as approp riate to a perfor med exam includ ing the follow ing: Automa iesha exposu re contro l Adjust ment of the mA and/or kV accord ing to patien t size (this includ es techni ques or standa rdized protoc ols for target ed exams where dose is matche d to indica tion / reason for exam; i.e. extrem ities or head) Use of iterat deep recons tructi on techni que Electr onical ly Signed by MIKE LONDON on 2024 at 0920 Report ed and signed by: MIKE LONDON CC: Micha marcelino M.D.; Akshat medrano MD Dictat ed Date/T mike: 2024 (09) Techno logist : CONTRA CTED PET TECHNO LOGIST Transc ribed Date/T mike: 2024 (0920) Transc riptio nist: PET TGR Electr onic Signat ure Date/T mike: 2024 (09) Printe d Date/T mike: 2024 (0932) BATCH NO: N/A PAGE 2 Signed Report CC'ed Logic: Orderi ng Provid er: MILENA FIGUEREDO Y Attend ing Provid er: MILENA FIGUEREDO Y Referr ing Provid er: STEVENSON ODEN Consul ting Provid er: STEVENSON ODEN [email or web address] Teresa Piña, [place], [address], 12/19/2024 09:43:16 12/20/19 25 12/17/2024 PET-C T, skull base to mid-t high scan No observ ation record ed. [email or web address] (Centralized Scheduling) [address] [place] [address] Teresa Piña, [place], [address], 12/20/2024 11:11:48 01/11/2001/10/2025 nonin vasiv e ear or pulse oxime try by kristel burrows (PROC ) No observ ation record ed. [place] [address] [employer] [address], [address], 01/10/2025 14:16:17 Result Notes None recorded. Problems Name Problem SNOMED Code Status Onset Date Resolution Date Notes Provider Name and Address Organization Details Recorded Time Acute bronchiti s 87116379 Active 2023 Crystal Earlywine null, [place] - [facility] - [place] & [place] 4 15:43:14 Pneumonia 597100251 Active 2023 Crystal Earlywine null, [place] - [facility] - [place] & [place] 4 16:23:49 Radiologi c infiltrat e of lung 954568470 Active 2023 Ananth Cobos MD [address] [place] [address] @[facility],[place], [address] , [place] - [facility] - [place] & [place] 4 15:27:32 Multiple nodules of lung 068559845 Active 2024 Ananth Cobos MD [address] [place] [address],[address] , [place], [address] , [place] - [facility] - [place] & [place] 5 10:30:39 Infectiou s disease 06183928 Active 2024 Ananth Cobos MD [address] [place] [address],[address], [place], [address] , [place] - [facility] - [facility] & [place] 5 10:31:04 Interstit ial lung disease 849176273 Active 2024 Ananth Cobos MD [facility] [employer] [facility],[address], [place], [address] , [place] - [facility] - [facility] & [place] 5 10:32:57 Paroxysma l atrial fibrillat ion 987225325 Active 2024 ERIN JOE, FINGERPRINT TECHNICIAN [facility] [address], [place], [address] , [place] - [facility] - [facility] & [place] 5 15:54:18 Hypokalem ia 14534390 Active 2024 Akshat coppola MD [facility] [employer] [facility],[address], [place], [address] , [place] - [facility] - [facility] & [place] 5 13:17:54 Essential hypertens ion 37441127 Active 2021 maury grayson null, [place] - [facility] - [facility] & [place] 2 15:22:54 Mixed hyperlipi demia 967572258 Active 2021 maury grayson null, [place] & [place] 2 15:23:10 Seizure disorder 435894437 Active 2021 maury grayson null, [place] [facility] & [place] 2 15:23:21 Chronic obstructi ve pulmonary disease 44573574 Active 2021 Advanced maury grayson null, [place] [facility] & [place] 2 15:23:37 Cerebrova scular accident 694960511 Active 2021 maury grayson null, [place] [facility] & [place] 2 15:24:27 Lumbosacr al radiculop athy 9882379 Active 2021 maury grayson null, [place] [facility] [place] [facility] & [place] 2 15:24:59 Chronic pain 49552367 Active 2021 maury grayosn null, [place] [facility] [place] & [place] 2 15:25:13 Postmenop ausal osteopeni a 849392153 Active 2021 maury grayson null, [place] [facility] & [place] 2 15:25:28 Traumatic brain injury 502418475 Active 2022 Akshat coppola MD [facility] [employer],[address], [place], [address] , [place] - [facility] - [place] & [place] 3 16:51:05 Sensorine ural hearing loss of bilateral ears 601725552 Active 2022 Akshat coppola MD [facility] [employer],[address], [place], [address] , [place] - [facility] - [place] & [place] 4 12:57:32 Sensorine ural hearing loss 44074035 Active 2022 MARGARET BOO, AUD [address] [place], [address] , [place] [facility] [place] & [place] 3 09:40:05 Left ventricul ar diastolic dysfuncti on 429830607 Active 2022 ERIN JOE APRN [facility] [employer],[address], [place], [address] , [place] [facility] - [place] & [place] 3 12:16:53 Advance care planning Active 2022 Akshat coppola MD [facility] [employer],[address], [place], [address] , [place] - [facility] - [place] & [place] 3 12:40:51 Adult health examinati on Active 2022 Akshat coppola MD [facility] [employer],[address], [place], [address] , [facility] - [facility] & [place] 3 12:40:52 Standardi zed adult depressio n screening tool completed 73039716439 4107 Active 2022 Akshat coppola MD [facility] [employer],[address] , [place], [address] , [facility] - [facility] & [place] 3 12:40:53 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 608074266 Active 2022 Akshat coppola MD [facility] [employer],[address], [place], [address] , [facility] - NT [facility] & [place] 4 12:56:27 Moderate major depressio n 877121 Active 2022 Akshat coppola MD [facility] [employer],[address] , [place], [address] , [facility] - [facility] & [place] 4 12:57:32 Chronic hypoxemic respirato ry failure 213888768 Active 2022 Akshat coppola MD [facility] [employer],[address] , [place], [address] , [facility] & [place] 4 12:55:30 Gastroeso phageal reflux disease without esophagit is 808195786 Active 2022 Akshat coppola MD [facility] [employer],[address] , [place], [address] , [facility] - [facility] & [place] 3 12:41:30 Obstructi ve sleep apnea syndrome 97944373 Active 2023 Ananth Cobos MD [facility] [employer],[address] , [place], [address] , [facility] - [facility] & [place] 4 23:53:59 Mixed sleep apnea 293787313 Active 2023 Ananth Cobos MD [facility] [employer],[address], [place], [address] , [place] - [facility] - [place] & [place] 4 23:54:05 Central sleep apnea syndrome 06284025 Active 2023 Ananth Cobos MD [address] [place] [address],[address], [place], [address] , [place] - [facility] - [place] & [place] 4 23:54:23 Mitral valve regurgita tion 13288392 Active 2023 Ananth Cobos MD [address] [place] [address],[address], [place], [address] , [place] - [facility] - [place] & [place] 4 20:22:53 Dysuria 83526156 Active 2023 Akshat coppola MD [address] [place] [address],[address], [place], [address] , [place] - [facility] - [place] & [place] 4 17:06:10 Notes:Some problems listed i n Document: #[id number] could not be added to this patient's chart. Please review this document and add these problems to the patient's chart manually as needed. Problem Notes None recorded. Procedures Surgical History Date Name Laterality Status Provider Name and Address Organization Details Recorded Time hysterectomy completed maury NICOLAS - [facility] & [place] 08/18/2022 15:27:10 cholecystectomy completed maury NICOLAS - [facility] - [place] & [place] 08/18/2022 15:27:20 Imaging Results Imaging Date Name Status LastModified by Organ atformerly [facility] Details LastModified Time 11/24/2024 CT, chest, w/o contrast completed [place] [address] [place], [address], 11/24/2024 18:25:39 11/24/2024 CT, chest, w/o contrast completed [place] (Centralized Scheduling) [place], [address], 12/01/2024 13:51:50 12/19/2024 PET-CT, skull base to mid-thigh scan completed [email or web address] , [place], [address], 12/19/2024 09:43:16 12/17/2024 PET-CT, skull base to mid-thigh scan completed [address] (Centralized Scheduling) [address] [place] [address] [place], [address], 12/20/2024 11:11:48 01/10/2025 noninvasive ear or pulse oximetry by continuous overnight monitoring (PROC) completed [place] [address] [employer] [facility] [address], [address], 01/10/2025 14:16:17 Procedure Notes None recorded. Medical Equipment None Reported. Allergies No known drug allergies Medications Name Sig Start Date Stop Date Status Note LastModified by Organization Details LastModified Time atorvastati n 40 mg tablet TAKE 1 TABLET BY MOUTH ONCE DAILY DIRECTED active Not Available Not Available No t Available fluticasone 250 mcg-salmete rol 50 mcg/dose blistr powdr for inhalation Inhale 1 puff twice a day by inhalatio n route. active Not Available Not Available No t Available prednisone 10 mg tablet 4 tablets daily for 5 days, then decrease by 1 tablet daily until 0 dose 09/21 completed Not Available Not Available Not Available doxycycline hyclate 100 mg capsule Take 1 capsule twice a day by oral route as directed for 7 days. 10/24 completed Not Available Not Available Not Available albuterol sulfate 2.5 mg/3 mL (0.083 %) solution for nebulizatio n USE 1 VIAL IN NEBULIZER THREE TIMES DAILY active Not Available Not Available No t Available azithromyci n 250 mg tablet TAKE 1 TABLET BY MOUTH ONCE DAILY FOR 4 DAYS 08/30 completed Not Available Not Available Not Available valacyclovi r 1 gram tablet Take 1 tablet 3 times a day by oral route as directed for 90 days. 08/18 completed Not Available Not Available Not Available prednisone 20 mg tablet TAKE 3 TABLETS BY MOUTH ONCE DAILY FOR 5 DAYS 08/30 completed Not Available Not Available Not Available Indocin 25 mg capsule TAKE 1 CAPSULE (25 MG) BY ORAL ROUTE 4 TIMES PER DAY (ER VISIT 09/17/23) 12/03 completed Not Available Not Available Not Available metronidazo le 500 mg tablet TAKE 1 TABLET BY MOUTH EVERY 8 HOURS FOR 10 DAYS active Not Available Not Available No t Available Klor-Con 20 mEq oral packet DISSOLVE & TAKE 1 POWDER BY MOUTH ONCE DAILY DISSOLVE IN AT LEAST 6 OZ OF WATER OR JUICE AND TAKE AFTER A MEAL active Not Available Not Available No t Available amlodipine 5 mg tablet Take 1 tablet every day by oral route. active Not Available Not Available No t Available omeprazole 40 mg capsule,del ayed release Take 1 capsule by mouth once daily active Not Available Not Available No t Available bisoprolol fumarate 10 mg tablet TAKE 1 TABLET BY MOUTH ONCE DAILY active Not Available Not Available No t Available prednisone 10 mg tablets in a dose pack TAKE 6 TABLETS BY MOUTH ON DAY 1 THEN 5 ON DAY 2, THEN 4 ON DAY 3, THEN 3 ON DAY 4, THEN 2 ON DAY 5 THEN 1 ON DAY 6 02/09 completed Not Available Not Available Not Available calcium 600 mg (as calcium carbonate 1,500 mg) tablet As directed 12/03 completed Not Available Not Available Not Available cephalexin 500 mg capsule TAKE 1 CAPSULE BY MOUTH EVERY 8 HOURS FOR 7 DAYS 02/09 completed Not Available Not Available Not Available montelukast 10 mg tablet TAKE 1 TABLET BY MOUTH ONCE DAILY 12/20 completed Not Available Not Available Not Available levetiracet am 750 mg tablet TAKE 2 TABLETS BY MOUTH TWICE DAILY active Not Available Not Available No t Available furosemide 20 mg tablet Take 1 tablet every day by oral route in the morning for 30 days. 12/03 completed Not Available Not Available Not Available levofloxaci n 500 mg tablet TAKE 1 TABLET BY MOUTH EVERY 24 HOURS DIRECTED FOR 7 DAYS 12/20 completed Not Available Not Available Not Available ondansetron 4 mg disintegrat ing tablet active Not Available Not Available N ot Available cefdinir 300 mg capsule TAKE 1 CAPSULE BY MOUTH EVERY 12 HOURS FOR URINARY INFECTION FOR 10 DAYS 05/05 completed Not Available Not Available Not Available naproxen 500 mg tablet TAKE 1 TABLET BY MOUTH TWICE DAILY active Not Available Not Available No t Available azithromyci n 500 mg tablet Take 1 tablet every day by oral route for 7 days. 09/21 completed Not Available Not Available Not Available Vitamin D3 25 mcg (1,000 unit) capsule Take 1 capsule every day by oral route around the clock. 07/27 completed Not Available Not Available Not Available cholestyram ine (with sugar) 4 gram powder for susp in a packet DISSOLVE 1 PACKET IN 8 OZ OF WATER AND TAKE BY MOUTH TWICE DAILY DIRECTED active Not Available Not Available No t Available Prilosec OTC 20 mg tablet,oseas yed release As directed 07/27 completed Not Available Not Available Not Available duloxetine 30 mg capsule,del ayed release Take 3 capsules every day by oral route for 90 days. active Not Available Not Available No t Available Lactobacill us acidophilus 1 billion cell tablet Take 1 tablet every day by oral route as directed for 10 days. 2024 active Not Available Not Available Not Avai lable pregabalin 150 mg capsule TAKE 1 CAPSULE BY MOUTH THREE TIMES DAILY FOR SEIZURES active Not Available Not Available No t Available Lyrica 50 mg capsule Take 5 capsules 3 times a day by oral route as directed for 90 days. 07/27 completed Not Available Not Available Not Available morphine per pump active per Dr. Rivera Not Available Not Available Not Available ibuprofen As needed active Not Available Not Available Not Available prednisone ER Visit 09/17/23 Taper dose 12/03 completed Not Available Not Available Not Available Keflex ER Visit 09/17/23 10 days 12/03 completed Not Available Not Available Not Available Stool Softener As directed active OTC Not Available Not Available No t Available [place] 3 As Directed 12/03 completed OTC Not Available Not Available Not Available multivitami n As directed active Not Available Not Available No t Available Symbicort 160 mcg-4.5 mcg/actuati on HFA aerosol inhaler Inhale 2 puffs by mouth twice daily active Not Available Not Available No t Available Lactobacill us acidoph-L.b ulgaricus 1 million cell tablet TAKE 1 TABLET BY MOUTH ONCE DAILY DIRECTED FOR 10 DAYS 03/01 completed Not Available Not Available Not Available Xarelto 20 mg tablet Take 1 tablet every day by oral route for 30 days. 08/31 completed due to fall risk. Not Available Not Available Not Available Combivent Respimat 20 mcg-100 mcg/actuati on solution for inhalation Inhale 1 puff 4 times a day by inhalatio n route. 2023 active Not Available Not Available Not Avai lable potassium chloride ER 20 mEq tablet,exte nded release Take 1 tablet twice a day by oral route as directed. 12/03 completed Not Available Not Available Not Available Trelegy Ellipta 100 mcg-62.5 mcg-25 mcg powder for inhalation INHALE 1 PUFF ONCE DAILY active Not Available Not Available No t Available Tylenol 325 mg capsule Take 2 capsules every 6 hours by oral route as needed. active Not Available Not Available No t Available turmeric As Directed active OTC Not Available Not Available No t Available Vitals Date Recorded Body height Body mass index (BMI) Body weight Body temperature Respiratory rate Systolic blood pressure Diastolic blood pressure Provider Name and Address Organization Details Last Updated DateTime 162.56 cm 25.7 kg/m2 72657.8 6 g 97.8 [degF] 12 /min 128 mm[Hg] 74 mm[Hg] Brunilda Alvarez [facility] & [place] 5 11:08:59 Date Recorded Oxygen saturation Oxygen saturation in Arterial blood by Pulse oximetry Inhaled oxygen flow rate Heart rate Provider Name and Address Organization Details Last Updated DateTime 12/01/2024 90 % 90 % 2 L/min 73 /min Ananth Cobos MD [address] [place] [address],[address], [address] , [facility] & [place] 12/01/2024 11:22:57 Date Recorded Body height Body mass index (BMI) Body weight Body temperature Oxygen saturation Oxygen saturation in Arterial blood by Pulse oximetry Inhaled oxygen flow rate Heart rate Respiratory rate Systolic blood pressure Diastolic blood pressure Provider Name and Address Organization Details Last Updated DateTime 5 162.56 cm 25.6 kg/m2 66598.6 6 g 97.6 [degF] 88 % 88 % 2 L/min 54 /min 18 /min 156 mm[Hg] 84 mm[Hg] Diane Collier [facility] & [place] 15:41:12 Date Recorded Body height Body mass index (BMI) Body weight Oxygen saturation Oxygen saturation in Arterial blood by Pulse oximetry Inhaled oxygen flow rate Respiratory rate Systolic blood pressure Diastolic blood pressure Provider Name and Address Organization Details Last Updated DateTime 5 162.56 cm 25.7 kg/m2 97722.8 6 g 90 % 90 % 2 L/min 14 /min 128 mm[Hg] 84 mm[Hg] Brunilda NICOLAS - [facility] [place] 5 15:25:26 Date Recorded Heart rate Provider Name an d Address Organization Details Last Updated DateTime 12/20/2024 67 /min Ananth de guzman MD [address] [facility],[address], [place], [address], [facility] [place] 12/20/2024 15:55:00 Date Recorded Body height Body mass index (BMI) Body weight Body temperature Oxygen saturation Oxygen saturation in Arterial blood by Pulse oximetry Inhaled oxygen flow rate Respiratory rate Heart rate Systolic blood pressure Diastolic blood pressure Provider Name and Address Organization Details Last Updated DateTime 5 162.56 cm 24.9 kg/m2 90721.8 9 g 97.8 [degF] 93 % 93 % 3 L/min 16 /min 85 /min 124 mm[Hg] 82 mm[Hg] Bailey Culp F[facility]ENCIO - NT [facility] [place] 5 11:14:44 Date Recorded Body height Body mass index (BMI) Body weight Body temperature Oxygen saturation Oxygen saturation in Arterial blood by Pulse oximetry Inhaled oxygen flow rate Heart rate Respiratory rate Systolic blood pressure Diastolic blood pressure Provider Name and Address Organization Details Last Updated DateTime 5 162.56 cm 23.4 kg/m2 39148.7 2 g 98.6 [degF] 100 % 100 % 2 L/min 50 /min 18 /min 108 mm[Hg] 70 mm[Hg] Anais Ruth [facility] - [facility] [place] 5 12:15:20 Social History Question Answer Notes LastModified by Organizat ion Details LastModified Time Tobacco Smoking Status Former Smoker Former 1 PPD x 50 years Brunilda Alvarez edgar [facility] - [facility] [place] 09/27/2024 15:35:36 Do You Have An Advance Directive? Yes [email or web address] Information not available 07/27/2023 Do You Wear A Helmet When Biking? No N/A [email or web address] Information not available 07/27/2023 Are You Blind Or Do You Have Difficulty Seeing? No [email or web address] Information not available 07/27/2023 Is Blood Transfusion Acceptable In An Emergency? No Information not available 07/27/2023 What Is Your Level Of Caffeine Consumption? Occasional [email or web address] Information not available 02/23/2023 In The 14 Days Before Symptom Onset, Have You Had Close Contact With A Laboratory-confi rmed COVID-19 While That Case Was Ill? No [email or web address] Information not available 07/27/2023 In The 14 Days Before Symptom Onset, Have You Had Close Contact With A Person Who Is Under Investigation For COVID-19 While That Person Was Ill? No [email or web address] Information not available 07/27/2023 Have You Been To An Area Known To Be High Risk For COVID-19? No [email or web address] Information not available 07/27/2023 Are You Deaf Or Do You Have Serious Difficulty Hearing? No Information not available 07/27/2023 What Type Of Diet Are You Following? REGULAR [email or web address] Information not available 07/27/2023 Have You Processed Blood Or Body Fluids From An Ebola Virus Disease Patient Without Appropriate PPE? No [email or web address] Information not available 07/27/2023 Do You Reside In Or Have You Traveled To An Area Where Ebola Virus Transmission Is Active? No Information not available 07/27/2023 How Many Days Of Moderate To Strenuous Exercise, Like A Brisk Walk, Did You Do In The Last 7 Days? 0 [email or web address] Information not available 07/27/2023 Have There Been Any Changes To Your Family Or Social Situation? No [email or web address] Information not available 07/27/2023 What Is The Fluoride Status Of Your Home? Unknown [email or web address] Information not available 07/27/2023 When Did You Quit Smoking? 1-5yearssincelas tcigarette Quit 2020 [email or web address] Information not available 10/24/2024 Are There Any Guns Present In Your Home? No [email or web address] Information not available 07/27/2023 Have You Recently Or Are You Planning To Travel To An Area With Zika Virus? No [email or web address] Information not available 07/27/2023 Do You Use Insect Repellent Routinely? No [email or web address] Information not available 07/27/2023 In General, Would You Say Your Health Is Good [email or web address] Information not available 07/27/2023 How Would You Describe The Condition Of Your Mouth And Teeth? including False Teeth Or Dentures? Fair [email or web address] Information not available 07/27/2023 In The Past 7 Days, How Many Servings Of Fruits And Vegetables Did You Typically Eat Each Day? (1 Serving = 1 Cup Of Fresh Vegetables, 1? 2 Cup Of Cooked Vegetables, Or 1 Medium Piece Of Fruit. 1 Cup = Size Of A Baseball.) 1-2 Servings Per Day [email or web address] Information not available 07/27/2023 In The Past 7 Days, How Many Servings Of High Fiber Or Whole Grain Foods Did You Typically Eat Each Day? (1 Serving = 1 Slice Of 100% Whole Wheat Bread, 1 Cup Of Whole-grain Or High-fiber Unwxo-mc-rsr Cereal, 1? 2 Cup Of Cooked Cereal Such As Oatmeal, Or 1? 2 Cup Of Cooked Brown Rice Or Whole Wheat Pasta.) 1-2 Servings Per Day [email or web address] Information not available 07/27/2023 In The Past 7 Days, How Many Servings Of Fried Or High-fat Foods Did You Typically Eat Each Day? (Examples Include Fried Chicken, Fried Fish, Rosas, [place], Potato Chips, Fontana Chips, Doughnuts, Creamy Salad Dressings, And Foods Made With Whole Milk, Cream, Cheese, Or Mayonnaise.) 1-2 Servings Per Day [email or web address] Information not available 07/27/2023 In The Past 7 Days, How Many Sugar-sweetened (not Diet) Beverages Did You Typically Consume Each Day 0 Drinks Per Day [email or web address] Information no t available 07/27/2023 Each Night, How Many Hours Of Sleep Do You Usually Get? 6-7 Hours [email or web address] Information not available 07/27/2023 Do You Snore Or Has Anyone Told You That You Snore? Yes [email or web address] Information not available 07/27/2023 In The Past 7 Days, How Often Have You [place] Sleepy During The Daytime? Sometimes Information not available 07/27/2023 Do You Have Chronic Pain? No [email or web address] Information not available 07/27/2023 If Yes, Location Of Pain None [email or web address] Information not available 07/27/2023 In The Past 7 Days, How Would You Rate Your Pain? No Pain phyidyl34 Information not available 07/27/2023 Are You In A Pain Management Program? Yes [email or web address] Information not available 07/27/2023 Do You Take Opioids For Your Pain? Yes Information not available 07/27/2023 How Often Is Stress A Problem For You In Handling Such Things As: Your Health, Your Finances, Your Family And Social Relationships, Your Work? Never Or Rarely [email or web address] Information not available 07/27/2023 How Often Do You Get The Social And Emotional Support You Need: Always [email or web address] Information not available 07/27/2023 In The Past 7 Days, Did You Need Help From Others To Take Care Of Things Such As Laundry And Housekeep- Ing, Banking, Shopping, Using The Telephone, Food Preparation, Transportation, Or Taking Your Own Medications? No [email or web address] Information not available 07/27/2023 Do You Live Alone? Yes [email or web address] Information not available 07/27/2023 Does Your Home Have Any Fall Risks (un-level Floors, Unfastened Rugs, Poor Lighting, Etc)? Yes [email or web address] Information not available 07/27/2023 What Was The Date Of Your Most Recent Tobacco Screening? 12/13/2024 [email or web address] Information not available 12/13/2024 How Many Children Do You Have? 3 [email or web address] Information not available 07/27/2023 Do You Have Any Pets? Yes Information not available 07/27/2023 What Is Your Relationship Status? [email or web address] Information not available 07/27/2023 Do You Use Your Seat Belt Or Car Seat Routinely? Yes [email or web address] Information not available 07/27/2023 Are You Sexually Active? No Information not available 07/27/2023 Do You Have Smoke And Carbon Monoxide Detectors In Your Home? Yes [email or web address] Information not available 07/27/2023 At What Age Did You Start Smoking Tobacco? 20 [email or web address] Information not available 07/27/2023 Are You Passively Exposed To Smoke? No [email or web address] Information not available 07/27/2023 What Types Of Sporting Activities Do You Participate In? None [email or web address] Information not available 07/27/2023 Do You Use Sunscreen Routinely? No [email or web address] Information not available 07/27/2023 Has Tobacco Cessation Counseling Been Provided? No [email or web address] Information not available 07/27/2023 How Many Years Have You Smoked Tobacco? 50 ukxmgez33 Information not available 07/27/2023 Do You Have Difficulty Walking Or Climbing Stairs? No Information not available 07/27/2023 Are You Currently In School? No Information not available 07/27/2023 What Contraceptive Method Was Reported At Start Of This Visit? None ahtjnti69 Information not available 07/27/2023 What Contraceptive Method Was Reported At End Of This Visit? None [email or web address] Information not available 07/27/2023 Do You Want To Talk About Contraception Or Prevention During Your Visit Today? No - I Do Not Want To Talk About Contraception Today Because I Am Here For Something Else haqwwpx52 Information not available 07/27/2023 Do You Have Any Future Plans To Get ? No, I Don't Want To Become [email or web address] Information not available 07/27/2023 What Is Your Reason For Having No Contraceptive Method At Start Of This Visit? Abstinence [email or web address] Information not available 07/27/2023 What Is Your Reason For Having No Contraceptive Method At End Of This Visit? Abstinence [email or web address] Information not available 07/27/2023 Sex: Female Functional Status Question Answer Note LastModified by Organizat ion Details LastModified Time Do you use any illicit or recreational drugs? No Information not available 11/03/2022 Do you or have you ever used any other forms of tobacco or nicotine? No Information not available 11/03/2022 What is your level of alcohol consumption? None Information not available 11/03/2022 Are you currently employed? No [email or web address] Information not available 07/27/2023 Do you have transportation difficulties? No [email or web address] Information not available 07/27/2023 What is your status? Not iqntvct34 Information no t available 07/27/2023 Are you able to walk? YESWOREST Information not available 07/27/2023 Do you have difficulty doing errands alone? No Information not available 07/27/2023 Are you able to care for yourself? Yes Information n ot available 07/27/2023 Do you have difficulty dressing or bathing? No Information not available 07/27/2023 What is your exercise level? None Information not available 07/27/2023 Mental Status Question Answer Note LastModified by Organizat ion Details LastModified Time Do you feel stressed (tense, restless, nervous, or anxious, or unable to sleep at night)? [id number] Information not available 07/27/2023 Do you have difficulty concentrating, remembering or making decisions? No Information no t available 07/27/2023 Family History Relationship Description Onset Age of this Age Resolved Age Notes LastModified by Organization Details LastModified Time Mother Diabetes mellitus [email or web address] Not available 2021 15:25:50 Mother Essential hypertension Not available 15:26:25 Mother Coronary arterioscler osis [email or web address] Not available 2021 15:26:41 Father Coronary arterioscler osis Not available 2021 15:26:51 Medical History Condition Response Coronary Artery Disease N Other N None N Gout N Blood Diseases N Kidney Stones N Hyperthyroidism N Breast Cancer N Blood Transfusion N Lung Disease N COPD Y Hypothyroidism N Depression Y Defects or Inherited Disease N Developmental or Behavioral Disorders N Breast Problem N Difficulty Swallowing N Anesthesia Complications N Anxiety Disorder N Meniere's disease N Muscle, Joint, or Bone Problems N Obesity N Vision or Eye Problems N Arthritis N Infertility N Polyps N Mental Disorder N Cancer N Varicosities N Stroke Y Endometriosis N Bladder or Kidney Problems N High Cholesterol Y Liver Disease N Headaches N Fibromyalgia N Kidney Disease N Allergies/Hayfever N Heart Problems N Ear or Hearing Problems N Hospitalizations N Thyroid Problems N GI Problems N ADD/ADHD N Eating Disorder N Skin Problems N Anemia N MRSA exposure N Constipation N Mental Illness N Diabetes N Ovarian Cancer N Bedwetting N Seizures/Epilepsy Y Tuberculosis N AIDS/HIV N Congestive Heart Failure (CHF) N Eczema N Abuse/Domestic Violence N Diverticulitis N Asthma N Reflux/GERD N Jaundice N Hepatitis N Heart Disease N Pulmonary Embolism N Chronic Ear Infections N Pre-Eclampsia N Hypertension Y Chicken Pox N Autism Spectrum Disorder (ASD) N Osteoporosis N Thrombophilias N Gynecological HistoryNo gynecological history recorded. Obstetrics History GPAL:G 0 P 0 0 0 0 Immunizations Vaccine Type Date Status Note Provider Nam e and Address Organization Details Recorded Time COVID-19, mRNA, LNP-S, PF, 100 mcg/0.5mL dose or 50 mcg/0.25mL dose 1 completed Eliana Aguilari null, [place] - [facility] [place] [facility] [place] 08/23/2024 15:01:47 COVID-19, mRNA, LNP-S, PF, 100 mcg/0.5mL dose or 50 mcg/0.25mL dose 1 completed Eliana Phillipsotti null, [place] - [facility] [place] [facility] [place] 08/23/2024 15:01:47 COVID-19, mRNA, LNP-S, PF, 100 mcg/0.5mL dose or 50 mcg/0.25mL dose 1 completed Eliana Phillipsotti null, [place] - [facility] - [place] [facility] [place] 08/23/2024 15:01:47 Td (adult), 2 Lf tetanus toxoid, preservative free, adsorbed 2 completed maury grayson null, [place] - [facility] [place] 08/18/2022 15:13:48 Past Encounters Encounter ID Performer Location Encounter Start Date Encounter Closed Date Diagnosis/Indication Diagnosis SNOMED-CT Code Diagnosis ICD10 Code Diagnosis Note [id number] [facility] [address] [place] [address] 08/18/2022 14:03:34 08/19/2022 09:40:39 Low back pain 772269621 M54.50 Patient presents today with complaint of a an acute exacerbati on of chronic low back pain. On physical examinatio n pain is localized to her right low back where pain pump is located. No surroundin g erythema, edema, warmth or bruising noted. Patient was instructed to follow up with Dr. Rivera, her pain management physician. Likely this was positional in nature. Reactive d epression (situational) 28450156 F32.A Patient also presents today with complaint of situationa l depression . Patient states that her and her son and daughter have been arguing recently, states that she feels very lonely and back pain has exacerbate d these depressive feelings. I discussed with patient at length in regards to treatment options, to which she declined. Patient was instructed to follow up if symptoms worsened or did not improve. [id number] ERIN JOE APRN [facility] [address] [place] [id number] 11/03/2022 10:01:15 11/03/2022 11:23:21 Acute exacerbation of chronic obstructive pulmonary disease 841167376 J44.1 Counseling given in reference to medication regimen. Supportive care recommende d. Discussed with patient over-the-c ounter interventi ons to treat along with the therapeuti c action of the medication and instructed to notify of worsening symptoms for evaluation . Instructed to push fluids along with the use of acetaminop hen/ibupro fen for fever and body aches. Education given to follow-up sooner if symptoms do not improve. [id number] ERIN JOE APRN [facility] [address] [place] [id number] 12/04/2022 15:35:10 12/04/2022 16:30:25 Community acquired pneumonia 234583699 J18.9 Patient discharged with prescripti on for Augmentin. Instructed to continue antibiotic s as prescribed . Transition of care 43812 00001 105 Z75.8 As stated above, patient presents today and transition of care following recent discharge from [facility] for right middle lobe pneumonia, cystitis, acute encephalop athy and sepsis. Patient was discharge to home with home health care and physical therapy and is currently living with her daughter. Patient's daughter voices concerns regarding continue periods of confusion following her discharge. I discussed with daughter in regards to this being secondary to her acute infection. Chronic ob structive pulmonary disease 84003359 J44.9 History of closed head injury [id number] 9101 Z87.828 [id number] MD CATH[facility] [address] [place] [address] 8 12/25/2022 15:42:11 12/26/2022 08:51:08 Sensorineural hearing loss of bilateral ears 514903776 H90.3 Chronic ob structive pulmonary disease 00210054 J41.8 Longstandi ng history of COPD that is managed with chronic bronchodil ators. Patient remains function room no specific complaints or changes. No recent unexpected weight loss, hemoptysis or other concerning signs relative to potential neoplastic developmen t. History of closed head injury [id number] 9101 Z87.828 This represents a chronic process that has been stable on medication s for extended period of time. Currently there appears to be no toxicity or side effect and good response to treatment. For these reasons we will continue medication s as ordered. Seizure disorder 3216200 02 G40.509 This represents a chronic process that has been stable on medication s for extended period of time. Currently there appears to be no toxicity or side effect and good response to treatment. For these reasons we will continue medication s as ordered. Traumatic brain injury 699684887 S06.8AAS historical diagnosis with ongoing sequelae requiring longstandi ng treat [id number] MIKY [facility]DER[facility] [address] [place] [address] 8 01/12/2023 09:15:02 01/12/2023 09:39:45 Sensorineural hearing loss 31139333 H90.3 [id number] [facility] [address] [place] [address] 01/19/2023 13:59:00 01/19/2023 15:39:19 Chronic obstructive pulmonary disease 16499098 J41.8 As stated above, patient presents today for medical evaluation for portable oxygen concentrat or. Patient is 96% on 2 L of oxygen per nasal cannula and O2 saturation s decreased to 83% on room air with minimal exertion. [id number] [facility] [address] [place] [address] 8 02/23/2023 14:46:14 02/23/2023 16:24:23 Thumb joint painful on movement 693877514 M79.645 Sample of Voltaren gel given to patient with maximiliano de guzman on use 4 times daily as needed. Follow-up as needed. [id number] [facility] [address] [place] [address] 03/11/2023 11:42:34 03/11/2023 12:53:59 Bilateral lower limb edema 180486939 R60.0 As stated in HPI, patient presents today with acute onset of 1+ pitting bilateral lower extremity edema over the last week with associated dyspnea on exertion. Patient was instructed to follow-up in 1 week for re-evaluat ion and BMP. Dyspnea on exertion 6084 5006 R06.09 Echocardio gram has been ordered. Cerebrovas cular disease 81319161 I67.9 Amongst patient's multiple comorbidit ies she does have a past medical history of tobacco abuse, hypertensi on and cerebrovas cular disease which does increase her risk for cardiovasc ular disease. [id number] MD [facility] [address] [place] [address] 03/31/2023 11:49:01 03/31/2023 12:37:25 Left ventricular diastolic dysfunction 158536685 I50.30 Echocardio gram results were reviewed with patient at today's visit. Patient returns today reporting that her lower extremity edema has resolved since starting the furosemide . She denies any acute complaints or side effects to medication . [id number] [facility] [address] [place] [address] 07/03/2023 09:20:11 07/03/2023 10:43:42 Falling injury 713749269 W19.XXXA As stated in HPI, patient presents today in regards to an ER follow-up from a fall on 07/01/2023 . Abrasion 111262447 T14.8 XXA Detailed discussion with patient in regards to wound care. Education given to follow-up sooner if symptoms do not improve. Contusion of forehead 11 3183620 S00.83XA [id number] MD [facility] [address] [place] [address] 07/27/2023 10:55:02 07/27/2023 12:33:24 Adult health examination 898743078 Z00.01 Appropriat e age related, gender related, and health risk related parameters were addressed today recommenda tions were made for appropriat e wellness studies as indicated. Advance care planning 71 6120207 Z71.89 Issues relative to today's discussion and diagnosis were addressed. All questions were attempted to be addressed and reconciled . Any particular necessary informatio n was dispensed Standardiz ed adult depression screening tool completed [id number] 83649 Z13.89 Appropriat e age related, gender related, and health risk related parameters were addressed today recommenda tions were made for appropriat e wellness studies as indicated. Traumatic brain injury 506012161 S06.8AAS historical diagnosis with ongoing sequelae requiring longstandi ng treat Seizure disorder 2529930 02 G40.509 This represents a chronic process that has been stable on medication s for extended period of time. Currently there appears to be no toxicity or side effect and good response to treatment. For these reasons we will continue medication s as ordered. Lumbosacra l radiculopathy 6599037 M54.17 The patient is followed and monitored for chronic pain management with the use of chronic scheduled medication s. Screening appears to show no signs of diversion nor abuse potential. There monitored closely they are getting good reasonable pain control from the currently prescribed medication s. They are following the contractua l agreement with our practice. Essential hypertension 03989608 I10 Patient returns today for follow-up of a chronic diagnosis of hypertensi on. Outpatient surveillan ce as demonstrat ed good control, without any issues or complaints of side effect. Today's evaluation s suggest adequate control of disease process and no need for change in medication currently. Mixed hyperlipidemia 267 059841 E78.2 Patient returns for follow-up appointmen t today relative to a diagnosis of hyperlipid emia and treatment for such. Updated laboratory studies are being used relative to appropriat e treatment. Patient voices no side effect/mus cular complaints muscle weakness. Chronic pain 92381455 G8 9.29 The patient is followed and monitored for chronic pain management with the use of chronic scheduled medication s. Screening appears to show no signs of diversion nor abuse potential. There monitored closely they are getting good reasonable pain control from the currently prescribed medication s. They are following the contractua l agreement with our practice. Chronic ob structive pulmonary disease 23926045 J41.8 Longstandi ng history of COPD that is managed with chronic bronchodil ators. Patient remains function room no specific complaints or changes. No recent unexpected weight loss, hemoptysis or other concerning signs relative to potential neoplastic developmen t. 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 Currently remains asymptomat ic, with no change in status, and no change in progressio n diagnostic ally or from a treatment standpoint . Moderate m ajor depression 035436 F32.1 Ongoing chronic treatment for major depressive disorder is reason for follow-up today. Patient states they are doing well, they perceive no side effect or negative issues with her current medication s. They perceive their mood to be well-adjus iesha, Gastroesop hageal reflux disease without esophagitis 040189975 K21.9 This appears to be in acute exacerbati on of a chronicpro cess for which treatment has been prescribed . Appropriat e Education in regards to signs and symptoms of deteriorat ion were discussed with the patient. As well expectatio ns for progress in treatment and improvemen t were also discussed. The patient was notified for any concerning signs or symptoms that would require urgent re-evaluat ion. [id number] [facility] [address] [place] [address] 09/07/2023 14:48:01 09/07/2023 15:27:23 Acute exacerbation of chronic obstructive pulmonary disease 900306504 J44.1 Counseling given in reference to medication regimen. Supportive care recommende d. Discussed with patient over-the-c ounter interventi ons to treat along with the therapeuti c action of the medication and instructed to notify of worsening symptoms for evaluation . Instructed to push fluids along with the use of acetaminop hen/ibupro fen for fever and body aches. Education given to follow-up sooner if symptoms do not improve. Purulent sputum [id number] R09.3 Counseling given in reference to medication regimen. Education given to follow-up sooner if symptoms do not improve. [id number] [facility] [address] [place] [address] 09/21/2023 14:26:14 09/21/2023 15:39:59 Gouty arthritis of ankle and/or foot [id number] M10.079 Detailed discussion with patient in regards to continuati on of prescribed prednisone dosing and use of Indocin as needed for pain relief. Education given to follow-up sooner if symptoms do not improve. [id number] MD CATHI [facility] [address] [place] [address] 12/03/2023 10:59:26 12/03/2023 12:24:05 Chronic obstructive pulmonary disease 67485619 J41.8 Longstandi ng history of COPD that is managed with chronic bronchodil ators. Patient remains function room no specific complaints or changes. No recent unexpected weight loss, hemoptysis or other concerning signs relative to potential neoplastic developmen t. Chronic hy poxemic respiratory failure 072797461 J96.11 currently oxygen dependent 2 L nasal cannula at home Seizure disorder 7895091 02 G40.509 This represents a chronic process that has been stable on medication s for extended period of time. Currently there appears to be no toxicity or side effect and good response to treatment. For these reasons we will continue medication s as ordered. Chronic pain 81565731 G8 9.29 The patient is followed and monitored for chronic pain management with the use of chronic scheduled medication s. Screening appears to show no signs of diversion nor abuse potential. There monitored closely they are getting good reasonable pain control from the currently prescribed medication s. They are following the contractua l agreement with our practice. Essential hypertension 95695976 I10 Patient returns today for follow-up of a chronic diagnosis of hypertensi on. Outpatient surveillan ce as demonstrat ed good control, without any issues or complaints of side effect. Today's evaluation s suggest adequate control of disease process and no need for change in medication currently. 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 Currently remains asymptomat ic, with no change in status, and no change in progressio n diagnostic ally or from a treatment standpoint . Moderate m ajor depression 831540 F32.1 Ongoing chronic treatment for major depressive disorder is reason for follow-up today. Patient states they are doing well, they perceive no side effect or negative issues with her current medication s. They perceive their mood to be well-adjus iesha, Sensorineu ral hearing loss of bilateral ears 909904514 H90.3 Issues relative to today's discussion and diagnosis were addressed. All questions were attempted to be addressed and reconciled . Any particular necessary informatio n was dispensed Physical deconditioning [id number] 9102 R68.89 for now we are going to be taking a observatio nal approach she is got home health. She is living in the home with her daughter right now she has not able to return to independen t living my concern and impression is she is going to be unlikely to return to independen t living. Chronic lo ng term disease management required: complex needs 977006640 Z76.89 Today's visit is part of long-term chronic disease management as well as chronic wellness management . Ongoing efforts to consolidat e and optimize care is the goal at each visit. Today's visit includes the management of surveillan ce laboratory studies, discussion of their values if necessary, in addition to the interactio n of multiple comorbidit ies, allowing the necessary additional time required [id number] MD CATHI [facility] [address] [place] [address] 12/29/2023 13:59:28 12/29/2023 14:47:14 Chronic hypoxemic respiratory failure 686920627 J96.11 currently oxygen dependent 2 L nasal cannula at home. question arises as if she is getting into hypoxemic failure during the night or she is becoming hypercarbi c. I am going to initially reach out to her home O2 supplier and see if we can do overnight pulse oximetry. She may ultimately need a overnight sleep study to further workup with potential referral to Pulmonary sleep Medicine Chronic ob structive pulmonary disease 77539142 J41.8 Longstandi ng history of COPD that is managed with chronic bronchodil ators. Patient remains function room no specific complaints or changes. No recent unexpected weight loss, hemoptysis or other concerning signs relative to potential neoplastic developmen t. 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 Currently remains asymptomat ic, with no change in status, and no change in progressio n diagnostic ally or from a treatment standpoint . Moderate m ajor depression 357062 F32.1 Ongoing chronic treatment for major depressive disorder is reason for follow-up today. Patient states they are doing well, they perceive no side effect or negative issues with her current medication s. They perceive their mood to be well-adjus iesha, Seizure disorder 7066852 02 G40.509 This represents a chronic process that has been stable on medication s for extended period of time. Currently there appears to be no toxicity or side effect and good response to treatment. For these reasons we will continue medication s as ordered. Traumatic brain injury 803388556 S06.8AAS historical diagnosis with ongoing sequelae requiring longstandi ng treat Chronic lo ng term disease management required: complex needs 201370657 Z76.89 Today's visit is part of long-term chronic disease management as well as chronic wellness management . Ongoing efforts to consolidat e and optimize care is the goal at each visit. Today's visit includes the management of surveillan ce laboratory studies, discussion of their values if necessary, in addition to the interactio n of multiple comorbidit ies, allowing the necessary additional time required [id number] MD CATHI [facility] [address] [place] [address] [address] [place] [address] 02/10/2024 09:15:26 02/10/2024 09:59:16 Obstructive sleep apnea syndrome 58218032 G47.33 Mixed sleep apnea 222536 001 G47.39 Central sl eep apnea syndrome 87434468 G47.37 [id number] MD CATHI [facility] [address] [place] [address] [address] [place] [address] 03/17/2024 08:58:06 03/17/2024 09:31:36 Obstructive sleep apnea syndrome 72235320 G47.33 Mixed sleep apnea 400186 001 G47.39 Central sl eep apnea syndrome 80540282 G47.37 [id number] MD CATHI [facility] [address] [place] [address] [address] GU[address] [place], [place] [address] 04/01/2024 11:38:35 04/01/2024 12:07:30 Obstructive sleep apnea syndrome 73296110 G47.33 Mixed sleep apnea 165266 001 G47.39 Central sl eep apnea syndrome 61278095 G47.37 [id number] MD CATHI [facility] [address] [place] [address] [address] GUADALUPE [address] [place] [address] 8 05/05/2024 10:40:33 05/05/2024 10:59:52 Obstructive sleep apnea syndrome 55451068 G47.33 Mixed sleep apnea 649969 001 G47.39 Central sl eep apnea syndrome 26673649 G47.37 [id number] MD CATHI [facility] [address] [place] [address] 08/23/2024 14:39:14 08/23/2024 15:20:55 Community acquired pneumonia 578530270 J18.9 As stated above, patient presented today with acute onset of upper respirator y related symptoms. Physical examinatio n findings reveal decreased breath sounds bilaterall y with notable rales and rhonchi. Due to patient's underlying medical conditions and comorbidit ies she has at an increased risk for decompensa tion and feel it in the best interest for patient to be urgently evaluated in emergency room. Report called to YURY Hansen at [facility] Emergency room where patient was sent by private vehicle for further evaluation and treatment. Dyspnea 280013458 R06.00 Patient presents today acutely ill with upper respirator y related symptoms. Patient chronicall y debilitate d, but is acutely ill, weak and notably dyspneic and tachypneic with any mild exertion. Chronic ob structive pulmonary disease 72167619 J41.8 Patient has advanced chronic obstructiv e pulmonary disease increasing her likelihood of decompensa tion. Patient is chronicall y on supplement al oxygen at 2 L per nasal cannula. Chronic hy poxemic respiratory failure 925481429 J96.11 Patient has known past medical history of chronic hypoxemic respirator y failure increasing her likelihood of decompensa tion. [id number] MD CATHI [facility] [address] [place] [address] [address] [place] [address] 08/30/2024 15:05:24 08/30/2024 15:47:32 Obstructive sleep apnea syndrome 32088090 G47.33 J96.11 Mixed sleep apnea 286403 001 G47.39 Central sl eep apnea syndrome 90800287 G47.37 Chronic ob structive pulmonary disease 82262195 J41.8 [id number] MD CATHI [facility] [address] [place] [address] [address] [place] [address] 09/27/2024 15:10:29 09/27/2024 15:49:05 Obstructive sleep apnea syndrome 46149550 G47.33 J96.11 Mixed sleep apnea 149112 001 G47.39 Central sl eep apnea syndrome 78654534 G47.37 Chronic ob structive pulmonary disease 55314903 J41.8 Acute bronchitis 9470418 2 J20.9 [id number] MD CATHI [facility] [address] [place] [address] 10/20/2024 14:48:08 10/20/2024 15:42:27 Intractable nausea and vomiting 105359795 R11.2 Chronic hy poxemic respiratory failure 264946317 J96.11 patient needs ABG's drawn at end of sleep study. Chronic ob structive pulmonary disease 29087781 J41.8 Longstandi ng history of COPD that is managed with chronic bronchodil ators. Patient remains function room no specific complaints or changes. No recent unexpected weight loss, hemoptysis or other concerning signs relative to potential neoplastic developmen t. 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 Currently remains asymptomat ic, with no change in status, and no change in progressio n diagnostic ally or from a treatment standpoint . [id number] MD CATHI [facility] [address] [place] [address] [place] [address] 10/24/2024 15:12:24 10/24/2024 15:38:51 Obstructive sleep apnea syndrome 09049991 G47.33 J96.11 Mixed sleep apnea 941602 001 G47.39 Central sl eep apnea syndrome 43463440 G47.37 Chronic ob structive pulmonary disease 96372014 J41.8 Radiologic infiltrate of lung 810724374 R91.8 [id number] MD CATHI [facility] [address] [place] [address] 12/01/2024 10:53:56 12/01/2024 11:30:23 Obstructive sleep apnea syndrome 69226288 G47.33 J96.11 Mixed sleep apnea 885403 001 G47.39 Central sl eep apnea syndrome 36988697 G47.37 Chronic ob structive pulmonary disease 41008858 J41.8 Radiologic infiltrate of lung 383178417 R91.8 Multiple n odules of lung 085479041 R91.8 Infectious disease 19616 004 B99.9 Pneumonia 622731338 J18. 9 [id number] MD CATHI [facility] [address] [place] [address] 12/13/2024 15:20:10 12/13/2024 16:10:04 Paroxysmal atrial fibrillation 427292068 I48.0 This is a chronic disease process for which current treatment is appropriat e. Patient is requesting referral to Cardiology . Referral has been made. Essential hypertension 11743611 I10 This is a chronic disease process for which current treatment is appropriat e. Referral to cardiology has been made per patient/fa gala request. Left ventr icular diastolic dysfunction 489983531 I50.30 This is a chronic disease process for which current treatment is appropriat e. Referral to cardiology has been made per patient/fa gala request. Mitral krystian ve regurgitation 03450020 I34.0 This is a chronic disease process for which current treatment is appropriat e. Referral to cardiology has been made per patient/fa glaa request. Chronic ob structive pulmonary disease 66460118 J41.8 Patient currently managed by pulmonolog y. She has a known past medical history of severe chronic obstructiv e pulmonary disease requiring continuous oxygen per nasal cannula at 2 liters/min shanna. Chronic hy poxemic respiratory failure 153402469 J96.11 This is a chronic disease process. No acute symptoms at today's visit. Traumatic brain injury 177733495 S06.8AAS Patient has known past medical history of a traumatic brain injury further complicati ng her past medical history and comorbidit ies. Central sl eep apnea syndrome 13967540 G47.37 Patient has known past medical history of central sleep apnea syndrome. She is compliant with positive pressure device and benefits from current usage of her BiPAP machine. Multiple n odules of lung 777284792 R91.8 Patient has past medical history of heavy tobacco use. Most recent CT of the chest completed on 11/24/2024 with notable increase in the size of a nodule in the posterior right upper lobe as well as right paratrache al lymph node enlargemen t. She is scheduled to have a PET scan this week. [id number] MD CATHI [facility] [address] [place] [address] 12/20/2024 15:15:23 12/20/2024 15:49:12 Obstructive sleep apnea syndrome 10864902 G47.33 J96.11 Mixed sleep apnea 793282 001 G47.39 Central sl eep apnea syndrome 19333376 G47.37 Chronic ob structive pulmonary disease 50704409 J41.8 Radiologic infiltrate of lung 647909877 R91.8 Multiple n odules of lung 000472427 R91.8 Infectious disease 54747 004 B99.9 [id number] MD CATHI [facility] [address] [place] [address] 02/16/2025 10:55:03 02/16/2025 11:34:19 Diarrhea of presumed infectious origin 24879515 R19.7 Counseling given in reference to medication regimen. Supportive care recommende d. Discussed with patient over-the-c ounter interventi ons to treat along with the therapeuti c action of the medication and instructed to notify of worsening symptoms for evaluation . Instructed to push fluids along with the use of acetaminop hen/ibupro fen for fever and body aches. Follow-up as needed. [id number] MD CATHI [facility] [address] [place] [address] 03/01/2025 11:51:25 03/01/2025 14:26:12 Chronic diarrhea of unknown origin 52009732 K52.9 This is a significan t issue and I think prior to further workup which would not be easy this would likely require a colonoscop y etcetera I am going to go on and try cholestyra mine regime. I have spent a lengthy amount of time discussing with her son. Hypokalemia 87202332 E87 .6 Surveillan ce laboratory studies have been ordered to assess for the target of treatment as well as any potential end-organ toxicity. Hypomagnesemia 055418333 E83.42 Appropriat e age related, gender related, and health risk related parameters were addressed today recommenda tions were made for appropriat e wellness studies as indicated. Chronic hy poxemic respiratory failure 911584910 J96.11 patient needs ABG's drawn at end of sleep study. Chronic ob structive pulmonary disease 02267350 J41.8 Longstandi ng history of COPD that is managed with chronic bronchodil ators. Patient remains function room no specific complaints or changes. No recent unexpected weight loss, hemoptysis or other concerning signs relative to potential neoplastic developmen t. 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 Currently remains asymptomat ic, with no change in status, and no change in progressio n diagnostic ally or from a treatment standpoint . Moderate m ajor depression 656648 F32.1 This is a chronic issue that I think is 1 of the significan t comorbidit ies that is really not very well-contr olled. We still struggling with her other multiple comorbidit ies to try to get her GI issue stabilized and solved Paroxysmal atrial fibrillation 942185581 I48.0 This represents a chronic process that has been medically stable. Currently remains asymptomat ic, with no change in status, and no change in progressio n diagnostic ally or from a treatment standpoint . Seizure disorder 2437983 02 G40.509 This represents a chronic process that has been stable on medication s for extended period of time. Currently there appears to be no toxicity or side effect and good response to treatment. For these reasons we will continue medication s as ordered. Traumatic brain injury 764749485 S06.8AAS historical diagnosis with ongoing sequelae requiring longstandi ng treat Health Concerns Section Related Observation LastModified by Organization Detai ls LastModified Time None Recorded Concern Status LastModified by Organization Details LastModified Time None Recorded Advance Directives Directive Y: Payers Insurance Date Sequence Insurance Name Policy Number Policy Watts Covered Member ID Watts Member ID Guarantor Name 01/07/2023 1 *SELF PAY* Pr incess Bryant 12/18/2024 1 [employer] (MEDICARE REPLACEMENT/ ADVANTAGE - PPO) Ashly G Bryant [id number] [facility] 12/13/2024 SLIDING FEE SCHEDULE - DISCOUNT Ashly Bryant 03/07/2025 1 [employer] (MEDICARE REPLACEMENT/ ADVANTAGE - PPO) Ashly G Bryant [id number] Ashly Bryant 12/18/2024 1 [place] Ashly Bryant [id number] Ashly Bryant 12/18/2024 1 [place]MED[place]/ ADVANTAGE - HMO) [id number] Ashly G Bryant [id number] Ashly Bryant Notes Date Note Type Note Provider Name and Address Organization Details Recorded Time 5 text/htm l 74-year-old female here for follow up. Previously at the time of her CT scan she was placed on Levaquin for 10 days with probiotic. She voiced no side effects/ adverse effects/drug interactions from Levaquin. I told her to stop to Lipitor and Zofran while she is on Levaquin , patient, daughter and son voiced understanding. Given her possible pneumonia on her most recent CT scan of chest will add Levaquin 500 mg daily for 7 days with probiotic 1 p.o. daily for 10-14 days. Repeat sats today are 96 percent on 2 L O2 pulsed at rest.She was previously in the hospital for dehydration/GI virus she states, CT scan of abdomen done 10/20/2024 at that time shows improvement in her lower lobe infiltrative process. She voices no other cardiopulmonary complaints.Previously placed on doxycycline and then Levaquin secondary to pneumonia noted on previous CT scan of chest, CT scan chest done October 04, 2024. Also reviewed of her previous compliance report and I decreased her pressure support to 0-5 with decreased EPAP to 4-6, with 2 L O2 flow.She was in ER August 23 for shortness of breath, chest x-ray showed hypoventilation with mild left basilar atelectasis. She was given duo nebs, Solu-Medrol and azithromycin. Sent home on azithromycin and prednisone 60 mg a day for 5 days.Previously added Trelegy 100, one puff daily.She was only on Combivent 1 puff once a day and using her nebulizers twice a day. She had been noncompliant with her autoSV, she states she will continue to try, she is doing much better.Patient presently is on an Air Curve Resmed, minimum EPAP 4, maximum EPAP 6, minimum pressure support 0, maximum pressure support 5 , rate auto . Overall she feels improved with Resmed Aircurve, and much more compliant.Patient was instructed to continue efforts at applying BiPAP mask adequately /tight seal to obtain minimal air leak , she voiced understanding. She has 2 L O2 with her Aircurve. She does breathe very well through her nose and wanted to try a standard nasal N20 mask with 2 L at night with her Aircurve. She is waking up more rested and refreshed and was wearing ResMed Aircurve over 5 hours a night. She complains of cough productive of some sputum, some yellow-tinged.The patient had COVID-13 November 2023 per daughter, was in ICU, then [facility]. [facility] 182 CT SCAN OF CHEST DONE NOVEMBER 24, 2024 BELOW:COMPARISON: LDCT 10/04/2024TECHNIQUE: Routine CT scan of the chest with sagittal and coronal reformattedimages.CONTRAST: NoneFINDINGS:Heart and mediastinum: Heart size upper limits normal with some left atrialprominence noted. Calcified plaque proximal LAD. Normal caliber aorta withatherosclerosis.Lymph nodes: Enlarged right paratracheal lymph node measures 1.8 cm comparedto 2.5 cm on previous study but subjectively appears similar. No othersuspicious lymph node enlargement.Lungs and pleural: The right lung nodular airspace consolidation issignificantly improved with residual opacities predominating in the superiorsegment of the lower lobe. However, in the posterior right upper lobe onimage 23 of series 3 is a 1.5 cm irregular nodule which appears to representincrease in size of a 9 mm nodule seen on the previous study.Bones and soft tissues: No acute abnormality. Multilevel degenerative changesthoracic spine.Thyroid: Low attenuation posterior left lobe nodule measures 1.7 cm and notwell seen on the LDCT due to technique as well as streak artifact.Included upper abdomen: Intrahepatic bile duct dilatation noted.IMPRESSION:1. Overall there has been significant improvement of the nodular right lungairspace consolidation seen on the old the CT consistent with resolvinginflammatory process.2. Increase in size of a nodule in the posterior right upper lobe from 0.9 cmto 1.5 cm. Recommend PET/CT.3. Right paratracheal lymph node enlargement. Name: PRINCESS TIMMY Account #:Electronically Signed by: Johanna Brian CT scans at [facility] are performed usingdose optimization techniques as appropriate to a performedexam including the following:Automated exposure controlAdjustment of the mA and/or kV according to patient size (thisincludes techniques or standardized protocols for targeted examswhere dose is matched to indication / reason for exam?? i.e.extremities or head)Use of iterative reconstruction techniqueTranscribed Date: 11/24/2024 4:43 PMTranscribed By:Reported by: CHARIS MARTINEZSigned by: CHARIS MARTINEZDateSigned:11/24/2024 4:43 PM LDCT of the Chest October 04, 2024:Comparison: NoneInterpretation:THYROID: No CT evidence for a nodule.MEDIASTINUM: Normal caliber atherosclerotic thoracic aorta. Central pulmonaryarteries are nondilated. There are coronary artery calcium patient's. Nopericardial effusion.LYMPH NODES: Enlarged right paratracheal lymph node measuring up to 2.5 cmlong axis.LUNGS AND AIRWAYS: 16 mm x 14 mm right upper lobe nodule axial image 74.Multiple nodular foci of consolidation within the right upper lobe and rightlower lobe, with a dominant nodular area of consolidation within the rightlower lobe on axial image 98 measuring 2.6 cm. Right middle lobe nodule ornodular focus of consolidation measuring 1.5 cm. Patent central airways.Trace right pleural effusion. No pneumothorax. Left lower lobe subsegmentalatelectasis or scarring.UPPER ABDOMEN: Cholecystectomy.CHEST WALL: The patient's metallic necklace was not removed, for an unknownreason. Thoracic spine scoliotic curvature and discogenic degenerativechanges. Partially visualized spinal stimulator leads.Impression:Lung RADS: Category 4X - Findings for which additional diagnostic testingand/or tissue sampling is recommended . Name: PRINCESS TIMMY Account #:- Multiple nodules or nodular foci of consolidation within the right upperlobe and right lower lobe, which may be infectious or neoplastic. Closefollow-up will be necessary after antibiotic therapy to ensure completeresolution.-Right paratracheal lymphadenopathy, which may be reactive or metastatic.- Trace right pleural effusion.- Coronary artery disease.These findings were discussed with Dr. Cobos by telephone, 7:40 AM10/05/2024.Electronically Signed by: Johanna Flaherty CT scans at [facility] are performed usingdose optimization techniques as appropriate to a performedexam including the following:Automated exposure controlAdjustment of the mA and/or kV according to patient size (thisincludes techniques or standardized protocols for targeted examswhere dose is matched to indication / reason for exam?? i.e.extremities or head)Use of iterative reconstruction techniqueSigned by: Rolly BANKSDate:10/04/20 243:57:03 PM Pulmonary Function Test August 2024: FEV1 FVC ratio 47 percent, FEV1 1.04 or 49 percent predicted, FVC of 2.23 or 80 percent predicted, improvement post bronchodilators. Interpreted as severe obstruction. She had repeat home sleep study July 19, 2024: She spent 72 percent of night snoring, this was done on O2 2L O2, lowest saturation recorded was 87 percent, apnea plus hypopnea index of 14, she had a total of 101 obstructive apneas and 30 central events. She spent 1 minute less than 90 percent saturation. Previous compliance report shows an apnea plus hypopnea index of 44, with a central component of 26. She is on CPAP 7 cm. I explained to the patient that standard CPAP will not fix her given she has a very strong central component. An in lab BIPAP study was done February 2024 reviewed, and scanned into chart. She was a CPAP and BiPAP failure.I went over most recent titration sleep study and HST results with the patient. She did well on BiPAP auto SV. Initially Ordered Res Med Air curve 10 or 11 with below pressures.2 L O2 flow with pressure support range 4 to 16, EPAP range 4 to 12 with backup rate of15. Most recent cardiac echo February 2024 revealed ejection fraction 60-65%, results scanned into chart Initial apnea plus hypopnea index on below sleep study is 87. Patient has a history of a morphine pain pump. She is on O2 2 L continuously. Quit smoking 3 years ago.Previously 1 pack a day for over 40 years.Daughter states she is much better regarding her sleep and previous confusion, she is having no morning confusion episodes with Resmed Aircurve and no fatigue or hypersomnia. Daughter denied apneas or snoring with CPAP.She denies fever, chills, night sweats, hemoptysis, pleurisy, chest pain, chest pressure, orthopnea, PND, dizziness or syncope. She uses her nebulizer machine about once or twice a day. She is also on Combivent and Singulair and added Trelegy.I went over ABG results, and sleep study results in detail with the patient and daughter, they voiced understanding, I answered all their questions, and they had no further questions. She is on O2 2 L continuously.She voices no other cardiopulmonary complaints, no GI complaints, and no neurologic complaints today.She voices no sleep-related or Aircurve/ BIPAP/CPAP related issues.Dyspnea, timing with exertion, and is mild in severity, and relieved with rest.She denies fever, chills, night sweats, hemoptysis, pleurisy, chest pain, chest pressure, syncope, palpitations, orthopnea, PND or dizziness.She denies fatigue, hypersomnia, sleep attacks, sleep hallucinations, sleep paralysis, cataplexy or RLS.The patient does not get sleepy, drowsy or fall asleep while driving, patient warned no driving motorized vehicles or operating machinery while fatigued, sleepy or drowsy, she voiced understanding. She complains of lingering cough the last 1-2 weeks with productive yellowish sputum at times.Modified Wells criteria of 0. Carlton of 0. She had an in lab sleep study done recently that revealed an apnea plus hypopnea index of 87. She had a total of 560 apneas, 36 of these were obstructive, 179 were central, 345 hypopneas, spent 11% of the night snoring, spent 84% of the night above 90%, lowest saturation recorded was 82%. She had an ABG at the end of her in-lab sleep study that revealed a pH 7.43, pCO2 of 47, PO2 of 52 on room air. Cardiac 2D echo 03/25/2023 as below:Cardiac chamber dimensionsLV diastole: 5.2 cmLV systole: 3.6 cmSeptal wall thickness: 0.8 cmPosterior wall thickness: 0.8 cmRV diastole: 1.4 cmLeft atrium: 3.9 cmAortic root: 2.9 cmPeak TR velocity: 3.3 m/secIMP:1. Normal LV size, thickness, global LV systolic function, EF 60 - 65 %2. The atria are normal in size3. Normal RV size and systolic function4. There is no pericardial effusion5. The aortic root is normal in size6. The mitral, aortic, tricuspid valve leaflets are normalDoppler1. Impaired LV relaxation pattern indicative of mild diastolic dysfunction2. Mild MR3. Estimated PA systolic pressure 53 mmHg, this is indicative of moderate pulmonary hypertensionTranscribed Date: 03/29/2023 4:13 PMTranscribed By: Steve LiuReported by: Wing Liuigned by: Radha LiuanDateSigned:03/29/20 4:1 Medications in the past have included morphine pump, albuterol, Advair, oxycodone, Singulair, Lyrica, Xarelto, Combivent and 2L O2. She has a past medical history of traumatic brain injury, CVA, seizures and chronic pain syndrome. Daughter states that patient has not had her morphine pain pump filled in the last 6 months. Apparently patient has pain in back and leg and is better.Patient was instructed to follow-up with primary care provider and/or other subspecialists for all other medical problems/ medical issues and screening exams including LDCT scan of the chest that are age appropriate and appropriate for her history/social history, smoking history/family history, as I am seeing her only for her sleep-related issues, she and her daughter and son voiced understanding, and stated they would follow up with Dr Brian chávez.I went over most recent cardiac echo in detail with the patient and her daughter, they both voiced understanding, and they had no further questions.I suspect her moderate pulmonary hypertension is secondary to underlying lung disease/COPD, I will leave this up to her primary care provider and/or a miter cutter , patient and daughter both voiced understanding.She voices no other cardiopulmonary complaints, no GI complaints, no neurologic complaints today. She voices no other sleep-related issues or ResMed Aircurve issues.I went over most recent CT scan of chest in detail October 2024 with the patient, son and daughter from September, I answered all of the patient's questions, the patient and daughter voiced understanding and had no further questions.The patient declines any further pulmonary/thoracic diagnostic procedures at the present time for abnormalities noted on most recent CT scan of chest. The patient declined bronchoscopy, CT lung biopsy, and/ or surgical biopsy /resection of abnormalities noted most recent CT scan chest October 2024, however she is in agreement for a PET scan. This note was completed using a dictation system. We do our best to minimize mistakes by this dictation system, but some dictation system mistakes cannot be identified. If something does not make sense and/ or appears in error please do not hesitate to contact our office. We can correct the record and/ or clarify for you.The patient was warned no driving motorized vehicles or operating heavy machinery while fatigued, sleepy or drowsy, she voiced understanding and she stated that she would not.Patient was instructed to read the side effect package profile very carefully on all medications prescribed, and to stop medications immediately and go to ER if the patient has any problems, she voiced understanding. Patient was instructed to go over side effects /adverse effects / drug interactions with all of the prescribed and [id number] medications with her pharmacist, she again voiced understanding. She was instructed to go to ER immediately if she does not improve or if she worsens, she and son again today voiced understanding.Given her COPD and dyspnea with exertion, started Trelegy 100, 1 puff daily , patient states she has plenty of Trelegy.Side effects of Trelegy and Levaquin/probiotic were explained to patient and daughter and include but not limited to: , anaphylaxis, sickness and , also oral candidiasis/ thrush, shortness of breath, joint pain, cataract formation, osteoporosis with fracture, nausea, vomiting, diarrhea, constipation, increased risks of any infection with sickness and sepsis and , also glaucoma, visual changes and blindness, headaches, tremors, aortic rupture and , tendon rupture that may require surgery, C difficile colitis with overwhelming infection, sepsis, and , also with Cdiff with lifelong sickness and , also insomnia, anxiety, agitation, lethargy, fatigue, life-threatening arrhythmia, muscle spasms, back pain, sore throat, cough, chest pain, difficulty with urination, rash, etc., they voiced understanding and are in agreement to Trelegy. Patient was instructed to read the side effects package profile very carefully on all meds prescribed, and to stop medications immediately and go to ER if she has any problems , patient and son voiced understanding. I went over most recent CT scan of chest with patient, son who was present and daughter who called me on the phone afterwards. I went over this most recent CT scan chest October 2024 in detail with all of them. I told daughter, son and patient I can not tell them at this point in time whether her abnormalities on most recent CT of the chest are : cancer, infection, inflammation, and/or other lung disorders, they voiced understanding. I offered to send patient for bronchoscopy for biopsy or other procedures as listed above in this note, she declines. Given her symptoms and this may be lingering pneumonia she wants to start on Levaquin and have a PET scan in 2-3 weeks and follow-up with me thereafter.I told the patient I will be retiring February 2025, the patient voiced understanding.The patient was instructed to follow-up with their primary care provider and/or a tattoo technician/sleep physician for all their future pulmonary needs/ issues/meds and all of their sleep needs/issues/meds, the patient voiced understanding. The patient was also instructed to follow-up with their primary care provider and/ or a tattoo technician for all recommended future CT scans of the chest, the patient voiced understanding. I told the patient their lack of follow-up with recommended future CT scans of chest could result in future ill health, sickness, , the patient again voiced understanding.She voiced understanding of all the above.Risks of surgery/bronchoscopy were explained to the patient and include not limited to: , anesthetic reaction with sickness and , DVT/ PE, aspiration, pneumonia, sepsis, life-threatening arrhythmia, MO, CVA, ventilator dependence lifelong, COPD exacerbation, hemothorax and/or pneumothorax that may result in immediate and life long ill health, sickness and , and also may require chest tube and/or surgery, also lifelong worsening pulmonary and/or cardiac status, hypotension, hypertension, etc., the patient voiced understanding. Risks/ benefits of surgery should be explained to the patient per anesthesiologist and surgeon/IP. Ananth Cobos MD [address] [place] [address],[address], [place], [address], [facility] 12/01/2024 12:30:05 5 text/htm l patient is a 74-year-old female who presents today requesting referral to Cardiology. Patient has known past medical history of hypertension, paroxysmal atrial fibrillation left ventricular diastolic dysfunction and mitral valve regurgitation. She also has an extensive history of interstitial lung disease, central sleep apnea syndrome and severe chronic obstructive pulmonary disease requiring continuous oxygen per nasal cannula. She is currently seeing pulmonology for workup of an abnormal CT of the chest and has a scheduled follow-up PET scan this week. ERIN JOE APRN [address] [place] [address],[address], [place], [address], [facility] & [place] 12/13/2024 16:10:58 5 text/htm l 74-year-old female here for follow up. Previous visit placed on Levaquin and oredered a PET scan. She denies side effects/ adverse effects/drug interactions from Levaquin. I told her to stop to Lipitor and Zofran while she is on Levaquin , patient, daughter and son voiced understanding. Given her possible pneumonia on her most recent CT scan of chest added Levaquin 500 mg daily for 7 days with probiotic 1 p.o. daily for 10-14 days. She voices no cardiopulmonary complaints. Saturations are 90 percent on 2 L with exertion, 95 percent at rest on 2L. She was previously in the hospital for dehydration/GI virus she states, CT scan of abdomen done 10/20/2024 at that time shows improvement in her lower lobe infiltrative process. She voices no other cardiopulmonary complaints.Previously placed on doxycycline and then Levaquin secondary to pneumonia noted on previous CT scan of chest, CT scan chest done October 04, 2024. Also reviewed of her previous compliance report and I decreased her pressure support to 0-6 with decreased EPAP to 4-6, with 2 L O2 flow.The patient voices no sleep-related or BiPAP related issues.She was in ER August 23 for shortness of breath, chest x-ray showed hypoventilation with mild left basilar atelectasis. She was given duo nebs, Solu-Medrol and azithromycin. Sent home on azithromycin and prednisone 60 mg a day for 5 days.Previously added Trelegy 100, one puff daily.She was only on Combivent 1 puff once a day and using her nebulizers twice a day. She had been noncompliant with her autoSV, she states she will continue to try, she is doing much better. She is on Trelegy as well.Patient presently is on an Air Curve Resmed, minimum EPAP 4, maximum EPAP 6, minimum pressure support 0, maximum pressure support 6 , rate auto . AHI is 24 but still with a leak of 42. Overall she feels improved with Resmed Aircurve, and much more compliant.Patient was again instructed to continue efforts at applying BiPAP mask adequately /tight seal to obtain minimal air leak , she voiced understanding. She has 2 L O2 with her Aircurve. She does breathe very well through her nose and wanted to try a standard nasal N20 mask with 2 L at night with her Aircurve. She is waking up more rested and refreshed and was wearing ResMed Aircurve over 5 hours a night. She is not having any night time or day time confusion presently, this has resolved.Quality and context sputum is clear, thin, mucousy and rare. Dyspnea with exertion, and is mild in severity and stable.The patient had COVID-13 November 2023 per daughter, was in ICU, then went to rehab at [facility]. [facility] at the timeRecent labs: histo ab negative, CRP less than 5, Anson level 64, sed rate 13, ANCA levels negative, rheumatoid factor normal at 12.2, MASSIEL negative, proteinase 3 negative, myeloperoxidase negative, histoplasmosis antigen urine and serum negative, fungal serology negative. QuantiFERON gold negative. ALPHA 1: 182 PET SCAN 12/17/2024:::Report DetailsPatient Name: PRINCESS TIMMYProcedureDate:2024Gender: Mau of : 1950 Age 74 yearsPatient ID: [id number]: PET/CTReferringPhysician:Arturo HarperAddendum 1 ADDENDUM #1 After initial interpretation of the study, it was requested that this becompared to the CT of the chest dated 11/24/2024 and at 10/04/2024. It shouldbe noted that the CT included for the PET CT imaging is not considered to bediagnostic in quality. However, no significant change in the nodule withinthe posterior right upper lobe is seen when compared to the previous study of11/24/2024. This lesion is increased in size when compared to the previousstudy of 10/04/2024.Electronically Signed by: Johanna Barker CT scans at [facility] are performed usingdose optimization techniques as appropriate to a performedexam including the following:Automated exposure controlAdjustment of the mA and/or kV according to patient size (thisincludes techniques or standardized protocols for targeted examswhere dose is matched to indication / reason for exam?? i.e.extremities or head)Use of iterative reconstruction techniqueSigned by: Yakelin LONDONDate: :01:07 PMReport TextHistory: Multiple lung nodulesComparison: None.Interpretation: PET/CT imaging was obtained from the skull base through theAccession: [id number] Name: PRINCESS TIMMY Account #:mid-thigh following the intravenous administration of 10.5 mCi of F-18 FDG.Blood glucose level was 99 mg/dL at the time of injection. Uptake time was 60minutes. Low dose non-contrasted CT examination was obtained at the samelevels and interpreted on the computer workstation. The low dose CTexamination is limited to attenuation correction and anatomic correlation andis not diagnostic.Small nodule within the left upper lobe posteriorly is present measuringapproximately 9 mm in diameter. This lesion demonstrates a subtle uptake ofradiotracer activity with maximal SUV of approximately 3.0. Significantpleural-parenchy mal scarring at the right lung base is noted. No other focalabnormal areas of radiotracer accumulation are identified.Below the diaphragm, physiologic distribution of radiotracer activity isobserved. Normal renal excretion of radiotracer activity is seen. Mild gutactivity is noted.Impression:Small nodule within the left upper lobe as above. This lesion demonstrates asubtle uptake of radiotracer activity. While this lesion may represent abenign granuloma, uptake of radiotracer activity is somewhat concerning andbiopsy should be considered. Alternatively, short interval follow-up withrepeat CT of the chest in 3-6 months may be performed. No other focalabnormal areas of radiotracer accumulation are identified.Electronically Signed by: Johanna Barker CT scans at [facility] are performed usingdose optimization techniques as appropriate to a performedexam including the following:Automated exposure controlAdjustment of the mA and/or kV according to patient size (thisincludes techniques or standardized protocols for targeted examswhere dose is matched to indication / reason for exam?? i.e.extremities or head)Use of iterative reconstruction techniqueTranscribed Date: 12/19/2024 9:20 AMTranscribed By:Reported by: SANTIAGO LONDONigned by: MIKE LONDONDateSigned:12/19/2024 9:20 CT SCAN OF CHEST DONE NOVEMBER 24, 2024 BELOW:COMPARISON: LDCT 10/04/2024TECHNIQUE: Routine CT scan of the chest with sagittal and coronal reformattedimages.CONTRAST: NoneFINDINGS:Heart and mediastinum: Heart size upper limits normal with some left atrialprominence noted. Calcified plaque proximal LAD. Normal caliber aorta withatherosclerosis.Lymph nodes: Enlarged right paratracheal lymph node measures 1.8 cm comparedto 2.5 cm on previous study but subjectively appears similar. No othersuspicious lymph node enlargement.Lungs and pleural: The right lung nodular airspace consolidation issignificantly improved with residual opacities predominating in the superiorsegment of the lower lobe. However, in the posterior right upper lobe onimage 23 of series 3 is a 1.5 cm irregular nodule which appears to representincrease in size of a 9 mm nodule seen on the previous study.Bones and soft tissues: No acute abnormality. Multilevel degenerative changesthoracic spine.Thyroid: Low attenuation posterior left lobe nodule measures 1.7 cm and notwell seen on the LDCT due to technique as well as streak artifact.Included upper abdomen: Intrahepatic bile duct dilatation noted.IMPRESSION:1. Overall there has been significant improvement of the nodular right lungairspace consolidation seen on the old the CT consistent with resolvinginflammatory process.2. Increase in size of a nodule in the posterior right upper lobe from 0.9 cmto 1.5 cm. Recommend PET/CT.3. Right paratracheal lymph node enlargement. Name: PRINCESS TIMMY Account #:Electronically Signed by: Johanna Brian CT scans at [facility] are performed usingdose optimization techniques as appropriate to a performedexam including the following:Automated exposure controlAdjustment of the mA and/or kV according to patient size (thisincludes techniques or standardized protocols for targeted examswhere dose is matched to indication / reason for exam?? i.e.extremities or head)Use of iterative reconstruction techniqueTranscribed Date: 11/24/2024 4:43 PMTranscribed By:Reported by: CHARIS MARTINEZSigned by: CHARIS MARTINEZDateSigned:11/24/2024 4:43 PM LDCT of the Chest October 04, 2024:Comparison: NoneInterpretation:THYROID: No CT evidence for a nodule.MEDIASTINUM: Normal caliber atherosclerotic thoracic aorta. Central pulmonaryarteries are nondilated. There are coronary artery calcium patient's. Nopericardial effusion.LYMPH NODES: Enlarged right paratracheal lymph node measuring up to 2.5 cmlong axis.LUNGS AND AIRWAYS: 16 mm x 14 mm right upper lobe nodule axial image 74.Multiple nodular foci of consolidation within the right upper lobe and rightlower lobe, with a dominant nodular area of consolidation within the rightlower lobe on axial image 98 measuring 2.6 cm. Right middle lobe nodule ornodular focus of consolidation measuring 1.5 cm. Patent central airways.Trace right pleural effusion. No pneumothorax. Left lower lobe subsegmentalatelectasis or scarring.UPPER ABDOMEN: Cholecystectomy.CHEST WALL: The patient's metallic necklace was not removed, for an unknownreason. Thoracic spine scoliotic curvature and discogenic degenerativechanges. Partially visualized spinal stimulator leads.Impression:Lung RADS: Category 4X - Findings for which additional diagnostic testingand/or tissue sampling is recommended . Name: PRINCESS TIMMY Account #:- Multiple nodules or nodular foci of consolidation within the right upperlobe and right lower lobe, which may be infectious or neoplastic. Closefollow-up will be necessary after antibiotic therapy to ensure completeresolution.-Right paratracheal lymphadenopathy, which may be reactive or metastatic.- Trace right pleural effusion.- Coronary artery disease.These findings were discussed with Dr. Cobos by telephone, 7:40 AM10/05/2024.Electronically Signed by: Johanna Flaherty CT scans at [facility] are performed usingdose optimization techniques as appropriate to a performedexam including the following:Automated exposure controlAdjustment of the mA and/or kV according to patient size (thisincludes techniques or standardized protocols for targeted examswhere dose is matched to indication / reason for exam?? i.e.extremities or head)Use of iterative reconstruction techniqueSigned by: SUDHAKAR BANKSignbirdDate:10/04/20 243:57:03 PM Cardiac echo done March 10, 2024: ejection fraction 60-65 percent. RVSP pressure 43, mild mitral insufficiency. Pulmonary Function Test August 2024: FEV1 FVC ratio 47 percent, FEV1 1.04 or 49 percent predicted, FVC of 2.23 or 80 percent predicted, improvement post bronchodilators. Interpreted as severe obstruction. She had repeat home sleep study July 19, 2024: She spent 72 percent of night snoring, this was done on O2 2L O2, lowest saturation recorded was 87 percent, apnea plus hypopnea index of 14, she had a total of 101 obstructive apneas and 30 central events. She spent 1 minute less than 90 percent saturation. Previous compliance report shows an apnea plus hypopnea index of 44, with a central component of 26. She is on CPAP 7 cm. I explained to the patient that standard CPAP will not fix her given she has a very strong central component. An in lab BIPAP study was done February 2024 reviewed, and scanned into chart. She was a CPAP and BiPAP failure.I went over most recent titration sleep study and HST results with the patient. She did well on BiPAP auto SV. Initially Ordered Res Med Air curve 10 or 11 with below pressures.2 L O2 flow with pressure support range 4 to 16, EPAP range 4 to 12 with backup rate of15. Most recent cardiac echo February 2024 revealed ejection fraction 60-65%, results scanned into chart Initial apnea plus hypopnea index on below sleep study is 87. Patient has a history of a morphine pain pump. She is on O2 2 L continuously. Quit smoking 3 years ago.Previously 1 pack a day for over 40 years.Daughter states she is much better regarding her sleep and previous confusion, she is having no morning confusion episodes with Resmed Aircurve and no fatigue or hypersomnia. Daughter denied apneas or snoring with CPAP.She denies fever, chills, night sweats, hemoptysis, pleurisy, chest pain, chest pressure, orthopnea, cough, productive sputum, PND, dizziness or syncope. She uses her nebulizer machine about once or twice a day. She is also on Combivent and Singulair and added Trelegy.I went over ABG results, and sleep study results in detail with the patient and daughter, they voiced understanding, I answered all their questions, and they had no further questions. She is on O2 2 L continuously.She voices no other cardiopulmonary complaints, no GI complaints, and no neurologic complaints today.She voices no sleep-related or Aircurve/ BIPAP/CPAP related issues.Dyspnea, timing with exertion, and is mild in severity, and relieved with rest.She denies fever, chills, night sweats, hemoptysis, pleurisy, chest pain, chest pressure, syncope, palpitations, orthopnea, PND or dizziness.She denies fatigue, hypersomnia, sleep attacks, sleep hallucinations, sleep paralysis, cataplexy or RLS.The patient does not get sleepy, drowsy or fall asleep while driving, patient warned no driving motorized vehicles or operating machinery while fatigued, sleepy or drowsy, she voiced understanding. She complains of lingering cough the last 1-2 weeks with productive yellowish sputum at times.Modified Wells criteria of 0. [place] of 0. She had an in lab sleep study done recently that revealed an apnea plus hypopnea index of 87. She had a total of 560 apneas, 36 of these were obstructive, 179 were central, 345 hypopneas, spent 11% of the night snoring, spent 84% of the night above 90%, lowest saturation recorded was 82%. She had an ABG at the end of her in-lab sleep study that revealed a pH 7.43, pCO2 of 47, PO2 of 52 on room air. Cardiac 2D echo 03/25/2023 as below:Cardiac chamber dimensionsLV diastole: 5.2 cmLV systole: 3.6 cmSeptal wall thickness: 0.8 cmPosterior wall thickness: 0.8 cmRV diastole: 1.4 cmLeft atrium: 3.9 cmAortic root: 2.9 cmPeak TR velocity: 3.3 m/secIMP:1. Normal LV size, thickness, global LV systolic function, EF 60 - 65 %2. The atria are normal in size3. Normal RV size and systolic function4. There is no pericardial effusion5. The aortic root is normal in size6. The mitral, aortic, tricuspid valve leaflets are normalDoppler1. Impaired LV relaxation pattern indicative of mild diastolic dysfunction2. Mild MR3. Estimated PA systolic pressure 53 mmHg, this is indicative of moderate pulmonary hypertensionTranscribed Date: 03/29/2023 4:13 PMTranscribed By: Steve LiuReported by: Wing Liuigned by: Radha LiuanDateSigned:03/29/20 4:1 Medications in the past have included morphine pump, albuterol, Advair, oxycodone, Singulair, Lyrica, Xarelto, Combivent and 2L O2. She has a past medical history of traumatic brain injury, CVA, seizures and chronic pain syndrome. Daughter states that patient has not had her morphine pain pump filled in the last 6 months. Apparently patient has pain in back and leg and is better.Patient was instructed to follow-up with primary care provider and/or other subspecialists for all other medical problems/ medical issues and screening exams including LDCT scan of the chest that are age appropriate and appropriate for her history/social history, smoking history/family history, as I am seeing her only for her sleep-related issues, she and her daughter and son voiced understanding, and stated they would follow up with Dr Brian chávez.I went over most recent cardiac echo in detail with the patient and her daughter, they both voiced understanding, and they had no further questions.I suspect her moderate pulmonary hypertension is secondary to underlying lung disease/COPD, I will leave this up to her primary care provider and/or a miter cutter , patient and daughter both voiced understanding.She voices no other cardiopulmonary complaints, no GI complaints, no neurologic complaints today. She voices no other sleep-related issues or ResMed Aircurve issues. I went over most recent CT scan of chest in detail October 2024 with the patient, son and daughter , I answered all of the patient's questions, the patient and daughter voiced understanding and had no further questions.The patient declines any further pulmonary/thoracic diagnostic procedures at the present time for abnormalities noted on most recent CT scan of chest. The patient declined bronchoscopy, CT lung biopsy, and/ or surgical biopsy /resection of abnormalities noted most recent CT scan chest October 2024, however were in agreement for a PET scan. This note was completed using a dictation system. We do our best to minimize mistakes by this dictation system, but some dictation system mistakes cannot be identified. If something does not make sense and/ or appears in error please do not hesitate to contact our office. We can correct the record and/ or clarify for you.The patient was warned no driving motorized vehicles or operating heavy machinery while fatigued, sleepy or drowsy, she voiced understanding and she stated that she would not.Patient was instructed to read the side effect package profile very carefully on all medications prescribed, and to stop medications immediately and go to ER if the patient has any problems, she voiced understanding. Patient was instructed to go over side effects /adverse effects / drug interactions with all of the prescribed and [id number] medications with her pharmacist, she again voiced understanding. She was instructed to go to ER immediately if she does not improve or if she worsens, she and son again today voiced understanding.Given her COPD and dyspnea with exertion, started Trelegy 100, 1 puff daily , patient states she has plenty of Trelegy.Side effects of Trelegy and Levaquin/probiotic were explained to patient and daughter and include but not limited to: , anaphylaxis, sickness and , also oral candidiasis/ thrush, shortness of breath, joint pain, cataract formation, osteoporosis with fracture, nausea, vomiting, diarrhea, constipation, increased risks of any infection with sickness and sepsis and , also glaucoma, visual changes and blindness, headaches, tremors, aortic rupture and , tendon rupture that may require surgery, C difficile colitis with overwhelming infection, sepsis, and , also with Cdiff with lifelong sickness and , also insomnia, anxiety, agitation, lethargy, fatigue, life-threatening arrhythmia, muscle spasms, back pain, sore throat, cough, chest pain, difficulty with urination, rash, etc., they voiced understanding and are in agreement to Trelegy. Patient was instructed to read the side effects package profile very carefully on all meds prescribed, and to stop medications immediately and go to ER if she has any problems , patient and son voiced understanding. I went over most recent CT scan of chest with patient, son who was present and daughter who called me on the phone afterwards. I went over this most recent CT scan chest October 2024 in detail with all of them. I told daughter, son and patient I can not tell them at this point in time whether her abnormalities on most recent CT of the chest are : cancer, infection, inflammation, and/or other lung disorders, they voiced understanding. I offered to send patient for bronchoscopy for biopsy or other procedures as listed above in this note, she/they declined. Given her symptoms and this may be lingering pneumonia she wants to start on Levaquin and have a PET scan and follow-up with me thereafter.I went over most recent PET scan and labs with patient and daughter. I told patient and daughter her lung nodules are stable from October 2024, but some have increased in size from September 2024 as per radiologist interpretation, and her PET scan did show some mild uptake in her left upper lobe. I offered bronchoscopy with biopsy or surgical biopsy, or CT lung biopsy, they declined. I told patient and daughter I can not tell them with 100 percent certainty if this is cancer, infection, inflammation, and/or other lung disorders , they voiced understanding. I told patient and daughter my suspicion were opinion is that her lung nodules may be secondary to her previous pneumonia September 2024 which was present on her CT scan at that time, they voiced understanding. Again I told them I could not tell them with 100 percent certainty that these changes on her previous CT scans of chest and recent PET scan are not malignant/cancer, infection, inflammation, and/ or other lung disorders, they voiced understanding and decline above procedures. Patient and daughter agreeable to a repeat CT scan of the chest in 3 months or January 2025. I gave the daughter a copy of her most recent PET scan. I told the patient I will be retiring February 2025, the patient voiced understanding.The patient was instructed to follow-up with their primary care provider and/or a tattoo technician/sleep physician for all their future pulmonary needs/ issues/meds and all of their sleep needs/issues/meds, the patient voiced understanding. The patient was also instructed to follow-up with their primary care provider and/ or a tattoo technician for all recommended future CT scans of the chest, the patient voiced understanding. I told the patient their lack of follow-up with recommended future CT scans of chest could result in future ill health, sickness, , the patient again voiced understanding.She voiced understanding of all the above.Risks of surgery/bronchoscopy were explained to the patient and include not limited to: , anesthetic reaction with sickness and , DVT/ PE, aspiration, pneumonia, sepsis, life-threatening arrhythmia, MO, CVA, ventilator dependence lifelong, COPD exacerbation, hemothorax and/or pneumothorax that may result in immediate and life long ill health, sickness and , and also may require chest tube and/or surgery, also lifelong worsening pulmonary and/or cardiac status, hypotension, hypertension, etc., the patient voiced understanding. Risks/ benefits of surgery should be explained to the patient per anesthesiologist and surgeon/IP. Patient and daughter want to hold off on any procedures at this point and repeat CT scan of chest in 3 months or January 2025. Ananth Cobos MD [address] [place] [address],[address], [place], [address], [place] - [facility] - [place] & [place] 12/20/2024 15:58:11 5 text/htm l DiarrheaReported bypatient.Quality:watery;in creased quantity;tenesmus Duration:acute (<14 days) Context:no one else with similar symptoms; no recent travel Associated Symptoms:no abdominal pain; no fever; no weight loss; no blood in stool; no mucus in stool; no black or tarry stools; no weakness Patient is a 74-year-old female who presents today with acute onset of watery diarrhea and chills that began 2 days ago. ERIN JOE APRN [address] [place] [address],[address], [place], [address], [facility] & [place] 02/16/2025 11:25:57 5 text/htm l Today's visit is follow-up 3 weeks out after having been in the emergency room hypokalemic hypomagnesemic in the setting of just general systems failure in really prolonged undiagnosed diarrhea. She was empirically treated as C diff did not respond a GI panel done in the emergency room really was not positive for any specific agent Akshat Torres MD [address] [place] [address],[address], [place], [address], [facility] & [place] 03/01/2025 14:33:22 OBGyn Episode No OBEpisode recorded.
--- OUTSIDE RECORDS SUMMARY | 2025-03-15 13:23 | XMS_ITS | Continuity of Care Document ---
[facility] Organization [facility] & [place], [facility] Address [address] [place] [address] Care Team Providers Care Public Address System Installer Name Role Phone AKSHAT RAHMAN Primary Care Provider Unavaila ble Assessment No assessment recorded. Plan of Treatment Reminders Order Date Submit Date Provider Last Modified By Organization Details Last Modified Time Details Appointments None recorded. Lab None recorded. Referral None recorded. Procedures None recorded. Surgeries None recorded. Imaging None recorded. Medication Orders metronidazo le 500 mg tablet 2024 025 [facility], [address] [place], [address], 5 11:23:56 Patient TargetsNo targets recorded. Patient InstructionsNo instructions recorded. Reason for Referral None Reported. Problems Name Problem SNOMED Code Status Onset Date Resolution Date Notes Provider Name and Address Organization Details Recorded Time Acute bronchiti s 21063129 Active 2023 Crystal Earlywine null, [place] - [facility] - [place] & [place] 4 15:43:14 Pneumonia 007550231 Active 2023 Crystal Earlywine null, [place] - [facility] - [place] & [place] 4 16:23:49 Radiologi c infiltrat e of lung 953681834 Active 2023 Ananth Cobos MD [facility] [employer] [address] [place] [address], [address] , [place] - [facility] - [place] & [place] 4 15:27:32 Multiple nodules of lung 227423316 Active 2024 Ananth Cobos MD [facility] [employer], [place], [address] , [place] - [facility] - [facility] & [place] 5 10:30:39 Infectiou s disease 66011904 Active 2024 Ananth Cobos MD [address] [place] [address],[address], [place], [address] , [place] - [facility] - [facility] & [place] 5 10:31:04 Interstit ial lung disease 561749895 Active 2024 Ananth Cobos MD [address] [place] [address],[address], [place], [address] , [place] [facility] & [place] 5 10:32:57 Paroxysma l atrial fibrillat ion 162144407 Active 2024 JEANNE JOE, EARTH MOVING TECHNICIAN [address] [place] [address],S[address] [facility], [place], [address] , [place] - [facility] - [facility] & [place] 5 15:54:18 Hypokalem ia 11243447 Active 2024 Akshat coppola MD [address] [place] [address],[facility] e [facility], [place], [address] , [place] - [facility] - [facility] & [place] 5 13:17:54 Essential hypertens ion 86355505 Active 2021 maury grayson null, [place] - [facility] [place] & [place] 2 15:22:54 Mixed hyperlipi demia 026025286 Active 2021 maury kenan null, [place] & [place] 2 15:23:10 Seizure disorder 641558744 Active 2021 maury kenan null, [place] 2 15:23:21 Chronic obstructi ve pulmonary disease 74581122 Active 2021 Advanced maury grayson null, [place] [facility] - [place] & [place] 2 15:23:37 Cerebrova scular accident 722622616 Active 2021 maury kenan null, [place] & [place] 2 15:24:27 Lumbosacr al radiculop athy 9050152 Active 2021 maury kenan null[place] & [place] 2 15:24:59 Chronic pain 01002741 Active 2021 maury kenan null[place] & [place] 2 15:25:13 Postmenop ausal osteopeni a 688578059 Active 2021 maury kenan null, [place] & [place] 2 15:25:28 Traumatic brain injury 070748710 Active 2022 Akshat coppola MD [facility] [employer] [place] [address], [address] , [place] - [facility] - [place] & [place] 3 16:51:05 Sensorine ural hearing loss of bilateral ears 712083348 Active 2022 Akshat coppola MD [facility] [employer] [place] [address], [address] , [place] - [facility] - [place] & [place] 4 12:57:32 Sensorine ural hearing loss 88905664 Active 2022 MARGARET BOO, AUD [address] [place], [address] , [place] - [facility] - [place] & [place] 3 09:40:05 Left ventricul ar diastolic dysfuncti on 550041731 Active 2022 JEANNE JOE, FREDIS [facility] [facility],[address] [place] [address], [address] , [place] - [facility] - [place] & [place] 3 12:16:53 Advance care planning Active 2022 Akshat coppola MD [facility] [employer] [place] [address], [address] , [facility] & [place] 3 12:40:51 Adult health examinati on Active 2022 Akshat coppola MD [facility],[address] , [place], [address] , [facility] & [place] 3 12:40:52 Standardi zed adult depressio n screening tool completed 97734718383 4107 Active 2022 Akshat coppola MD [facility],[address] , [place], [address] , [facility] & [place] 3 12:40:53 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 181978017 Active 2022 Akshat coppola MD [address] [place] [address] [employer] [facility],[address] , [place], [address] , [facility] & [place] 4 12:56:27 Moderate major depressio n 313258 Active 2022 Akshat coppola MD [facility],[address] , [place], [address] , [facility] & [place] 4 12:57:32 Chronic hypoxemic respirato ry failure 701414001 Active 2022 Akshat coppola MD [facility],[address] , [place], [address] , [facility] & [place] 4 12:55:30 Gastroeso phageal reflux disease without esophagit is 300726474 Active 2022 Akshat coppola MD [address] [place] [address],[address] [facility], [place], [address] , [facility] & [place] 3 12:41:30 Obstructi ve sleep apnea syndrome 79503483 Active 2023 Ananth Cobos MD [address] [place] [address],[address] , [place], [address] , [facility] - [facility] & [place] 4 23:53:59 Mixed sleep apnea 274880516 Active 2023 Ananth Cobos MD [address] [place] [address],[address] [place] [address], [address] , [facility] - [facility] & [place] 4 23:54:05 Central sleep apnea syndrome 66999603 Active 2023 Ananth Cobos MD [address] [place] [address],[facility], [place], [address] , [facility] - [facility] & [place] 4 23:54:23 Mitral valve regurgita tion 27147494 Active 2023 Ananth Cobos MD [address] [place] [address],[address] [place] [address], [address] , [facility] - NT [facility] & [place] 4 20:22:53 Dysuria 19869346 Active 2023 Akshat coppola MD [address] [place] [address],[address] [place] [address], [address] , [facility] - [facility] & [place] 4 17:06:10 Notes:Some problems listed i n Document: #[id number] could not be added to this patient's chart. Please review this document and add these problems to the patient's chart manually as needed. Problem Notes None recorded. Procedures Surgical History Date Name Laterality Status Provider Name and Address Organization Details Recorded Time hysterectomy completed maury NICOLAS - [facility] & [place] 08/18/2022 15:27:10 cholecystectomy completed maury NICOLAS - [facility] - [place] & [place] 08/18/2022 15:27:20 Imaging Results None recorded. Procedure Notes None recorded. Medical Equipment None [...] Not Available Not Available No t Available [place] 3 As Directed 12/03 completed OTC Not [...] Organization Details Last Updated DateTime 162.56 cm 24.9 kg/m2 65801.8 9 g 97.8 [degF] 93 % 93 % 3 L/min 16 /min 85 /min 124 mm[Hg] 82 mm[Hg] Bailey Scales [facility] & [place] 5 11:14:44 Social History Question Answer Notes LastModified by Organizat ion Details LastModified Time Tobacco Smoking Status Former Smoker Former 1 PPD x 50 years FIDENCIO Rehman [facility] & [place] 09/27/2024 15:35:36 Do You Have An Advance Directive? Yes [email or web address] Information not available 07/27/2023 Do You Wear A Helmet When Biking? No N/A [email or web address] Information not available 07/27/2023 Are You Blind Or Do You Have Difficulty Seeing? No Information not available 07/27/2023 Is Blood Transfusion Acceptable In An Emergency? No [email or web address] Information not available 07/27/2023 What Is Your Level Of Caffeine Consumption? Occasional Information not available 02/23/2023 In The 14 Days Before Symptom Onset, Have You Had Close Contact With A Laboratory-confi rmed COVID-19 While That Case Was Ill? No [email or web address] Information not available 07/27/2023 In The 14 Days Before Symptom Onset, Have You Had Close Contact With A Person Who Is Under Investigation For COVID-19 While That Person Was Ill? No [email or web address] Information not available 07/27/2023 Have You Been To An Area Known To Be High Risk For COVID-19? No [email or web address] Information not available 07/27/2023 Are You Deaf Or Do You Have Serious Difficulty Hearing? No [email or web address] Information not available 07/27/2023 What Type Of Diet Are You Following? REGULAR [email or web address] Information not available 07/27/2023 Have You Processed Blood Or Body Fluids From An Ebola Virus Disease Patient Without Appropriate PPE? No [email or web address] Information not available 07/27/2023 Do You Reside In Or Have You Traveled To An Area Where Ebola Virus Transmission Is Active? No [email or web address] Information not available 07/27/2023 How Many Days Of Moderate To Strenuous Exercise, Like A Brisk Walk, Did You Do In The Last 7 Days? 0 [email or web address] Information not available 07/27/2023 Have There Been Any Changes To Your Family Or Social Situation? No [email or web address] Information not available 07/27/2023 What Is The Fluoride Status Of Your Home? Unknown [email or web address] Information not available 07/27/2023 When Did You Quit Smoking? 1-5yearssincelas tclondonarerodriguez Quit 2020 [email or web address] Information not available 10/24/2024 Are There Any Guns Present In Your Home? No [email or web address] Information not available 07/27/2023 Have You Recently Or Are You Planning To Travel To An Area With Zika Virus? No [email or web address] Information not available 07/27/2023 Do You Use Insect Repellent Routinely? No [email or web address] Information not available 07/27/2023 In General, Would You Say Your Health Is Good [email or web address] Information not available 07/27/2023 How Would You Describe The Condition Of Your Mouth And Teeth? including False Teeth Or Dentures? Fair [email or web address] Information not available 07/27/2023 In The Past 7 Days, How Many Servings Of Fruits And Vegetables Did You Typically Eat Each Day? (1 Serving = 1 Cup Of Fresh Vegetables, 1? 2 Cup Of Cooked Vegetables, Or 1 Medium Piece Of Fruit. 1 Cup = Size Of A Baseball.) 1-2 Servings Per Day [place] [address] Information not available 07/27/2023 In The Past 7 Days, How Many Servings Of High Fiber Or Whole Grain Foods Did You Typically Eat Each Day? (1 Serving = 1 Slice Of 100% Whole Wheat Bread, 1 Cup Of Whole-grain Or High-fiber Mikbr-gw-qoe Cereal, 1? 2 Cup Of Cooked Cereal Such As Oatmeal, Or 1? 2 Cup Of Cooked Brown Rice Or Whole Wheat Pasta.) 1-2 Servings Per Day [place] [address] Information not available 07/27/2023 In The Past 7 Days, How Many Servings Of Fried Or High-fat Foods Did You Typically Eat Each Day? (Examples Include Fried Chicken, Fried Fish, Rosas, [place], Potato Chips, Rector Chips, Doughnuts, Creamy Salad Dressings, And Foods Made With Whole Milk, Cream, Cheese, Or Mayonnaise.) 1-2 Servings Per Day [place] [address] Information not available 07/27/2023 In The Past 7 Days, How Many Sugar-sweetened (not Diet) Beverages Did You Typically Consume Each Day 0 Drinks Per Day [place] [address] Information no t available 07/27/2023 Each Night, How Many Hours Of Sleep Do You Usually Get? 6-7 Hours [email or web address] Information not available 07/27/2023 Do You Snore Or Has Anyone Told You That You Snore? Yes [email or web address] Information not available 07/27/2023 In The Past 7 Days, How Often Have You [place] Sleepy During The Daytime? Sometimes [email or web address] Information not available 07/27/2023 Do You Have Chronic Pain? No [email or web address] Information not available 07/27/2023 If Yes, Location Of Pain None [email or web address] Information not available 07/27/2023 In The Past 7 Days, How Would You Rate Your Pain? No Pain wzfyhfs79 Information not available 07/27/2023 Are You In A Pain Management Program? Yes [email or web address] Information not available 07/27/2023 Do You Take Opioids For Your Pain? Yes Information not available 07/27/2023 How Often Is Stress A Problem For You In Handling Such Things As: Your Health, Your Finances, Your Family And Social Relationships, Your Work? Never Or Rarely [email or web address] Information not available 07/27/2023 How Often Do You Get The Social And Emotional Support You Need: Always Information not available 07/27/2023 In The Past 7 Days, Did You Need Help From Others To Take Care Of Things Such As Laundry And Housekeep- Ing, Banking, Shopping, Using The Telephone, Food Preparation, Transportation, Or Taking Your Own Medications? No [email or web address] Information not available 07/27/2023 Do You Live Alone? Yes [email or web address] Information not available 07/27/2023 Does Your Home Have Any Fall Risks (un-level Floors, Unfastened Rugs, Poor Lighting, Etc)? Yes Information not available 07/27/2023 What Was The Date Of Your Most Recent Tobacco Screening? 12/13/2024 [email or web address] Information not available 12/13/2024 How Many Children Do You Have? 3 [email or web address] Information not available 07/27/2023 Do You Have Any Pets? Yes [email or web address] Information not available 07/27/2023 What Is Your Relationship Status? [email or web address] Information not available 07/27/2023 Do You Use Your Seat Belt Or Car Seat Routinely? Yes [email or web address] Information not available 07/27/2023 Are You Sexually Active? No [email or web address] Information not available 07/27/2023 Do You Have Smoke And Carbon Monoxide Detectors In Your Home? Yes aigkzvk66 Information not available 07/27/2023 At What Age Did You Start Smoking Tobacco? 20 [email or web address] Information not available 07/27/2023 Are You Passively Exposed To Smoke? No [email or web address] Information not available 07/27/2023 What Types Of Sporting Activities Do You Participate In? None [email or web address] Information not available 07/27/2023 Do You Use Sunscreen Routinely? No [email or web address] Information not available 07/27/2023 Has Tobacco Cessation Counseling Been Provided? No jjctovv33 Information not available 07/27/2023 How Many Years Have You Smoked Tobacco? 50 zbfwufk69 Information not available 07/27/2023 Do You Have Difficulty Walking Or Climbing Stairs? No [email or web address] Information not available 07/27/2023 Are You Currently In School? No [email or web address] Information not available 07/27/2023 What Contraceptive Method Was Reported At Start Of This Visit? None Information not available 07/27/2023 What Contraceptive Method Was Reported At End Of This Visit? None Information not available 07/27/2023 Do You Want To Talk About Contraception Or Prevention During Your Visit Today? No - I Do Not Want To Talk About Contraception Today Because I Am Here For Something Else [email or web address] Information not available 07/27/2023 Do You Have Any Future Plans To Get ? No, I Don't Want To Become [email or web address] Information not available 07/27/2023 What Is Your Reason For Having No Contraceptive Method At Start Of This Visit? Abstinence [email or web address] Information not available 07/27/2023 What Is Your Reason For Having No Contraceptive Method At End Of This Visit? Abstinence [email or web address] Information not available 07/27/2023 Sex: Female Functional [...] available 11/03/2022 Are you currently employed? No [email or web address] Information not available 07/27/2023 Do you have transportation difficulties? No aoyylav79 Information not available 07/27/2023 What is your status? Not pxbjafk71 Information no t available 07/27/2023 Are you able to walk? YESWOREST [email or web address] Information not available 07/27/2023 Do you have difficulty doing errands alone? No [email or web address] Information not available 07/27/2023 Are you able to care for yourself? Yes [email or web address] Information n ot available 07/27/2023 Do you have difficulty dressing or bathing? No [email or web address] Information not available 07/27/2023 What is your exercise level? None [email or web address] Information not available 07/27/2023 Mental Status Question Answer Note LastModified by Organizat ion Details LastModified Time Do you feel stressed (tense, restless, nervous, or anxious, or unable to sleep at night)? [id number] [email or web address] Information not available 07/27/2023 Do you have difficulty concentrating, remembering or making decisions? No [email or web address] Information no t available 07/27/2023 Family History Relationship Description Onset Age of this Age Resolved Age Notes LastModified by Organization Details LastModified Time Mother Diabetes mellitus Not available 2021 15:25:50 Mother Essential hypertension Not available 15:26:25 Mother Coronary arterioscler osis Not available 2021 15:26:41 Father Coronary arterioscler osis [email or web address] Not available 2021 15:26:51 Medical History Condition [...] dose or 50 mcg/0.25mL dose 1 completed FIDENCIO Hernandez - [facility] 08/23/2024 15:01:47 COVID-19, mRNA, LNP-S, PF, 100 mcg/0.5mL dose or 50 mcg/0.25mL dose 1 completed Eliana hernández [place] - [facility] 08/23/2024 15:01:47 COVID-19, mRNA, LNP-S, PF, 100 mcg/0.5mL dose or 50 mcg/0.25mL dose 1 completed Eliana hernández [place] - [facility] 08/23/2024 15:01:47 Td (adult), 2 Lf tetanus toxoid, preservative free, adsorbed 2 completed FIDENCIO pina - [facility]NT [facility] 08/18/2022 15:13:48 Past Encounters Encounter ID Performer Location Encounter Start Date Encounter Closed Date Diagnosis/Indication Diagnosis SNOMED-CT Code Diagnosis ICD10 Code Diagnosis Note [id number] MD [facility] [address] [place] [address] 02/16/2025 10:55:03 02/16/2025 11:34:19 Diarrhea of presumed infectious origin 12506040 R19.7 Counseling given in reference to medication regimen. Supportive care recommende d. Discussed with patient over-the-c ounter interventi ons to treat along with the therapeuti c action of the medication and instructed to notify of worsening symptoms for evaluation . Instructed to push fluids along with the use of acetaminop hen/ibupro fen for fever and body aches. Follow-up as needed. Health Concerns Section Related Observation LastModified by Organization Detai ls LastModified Time None Recorded Concern Status LastModified by Organization Details LastModified Time None Recorded Payers Encounter Date Sequence Insurance Name Policy Number Policy Watts Covered Member ID Watts Member ID Guarantor Name 02/16/2025 1 [employer] (MEDICARE REPLACEMENT/ ADVANTAGE - PPO) Princess Alex Warner [id number] Princess Warner Notes Date Note Type Note Provider Name and Address Organization Details Recorded Time 02/16/2025 text/html DiarrheaReported bypatient.Quality:dion donna;increased quantity;tenesmus Duration:acute (<14 days) Context:no one else with similar symptoms; no recent travel Associated Symptoms:no abdominal pain; no fever; no weight loss; no blood in stool; no mucus in stool; no black or tarry stools; no weakness Patient is a 74-year-old female who presents today with acute onset of watery diarrhea and chills that began 2 days ago. JEANNE JOE APRN [address] [facility],[address], [place], [address], [facility] 02/16/2025 11:25:57 OBGyn Episode No OBEpisode recorded.
--- OUTSIDE RECORDS SUMMARY | 2025-03-15 13:23 | XMS_ITS | Continuity of Care Document ---
Author Organization FIDENCIO HINSON [facility] Address [address] [place] [address] Care Team Providers Care Uniform Attendant Name Role Phone AKSHAT RAHMAN Primary Care Provider Unavaila ble Assessment No assessment recorded. Plan of Treatment Reminders Order Date Submit Date Provider Last Modified By Organization Details Last Modified Time Details Appointments None recorded. Lab magnesium, serum or plasma 2024 025 [place] [facility], [address] , [place], [address], 5 11:29:41 BMP, serum or plasma 2024 025 [place] [facility], [address] , [place], [address], 11:29:39 Referral None recorded. Procedures None recorded. Surgeries None recorded. Imaging None recorded. Medication Orders cholestyram ine (with sugar) 4 gram powder for susp in a packet 2024 025 [facility] [place], [address], 5 13:21:16 Patient TargetsNo targets recorded. Patient InstructionsNo instructions recorded. Reason for Referral None Reported. Problems Name Problem SNOMED Code Status Onset Date Resolution Date Notes Provider Name and Address Organization Details Recorded Time Acute bronchiti s 77366051 Active 2023 Crystal Earlywine FIDENCIO hernández - SRAVAN [facility] [place] 4 15:43:14 Pneumonia 611137814 Active 2023 Brunilda Alvarez null, [place] [facility] - [facility] [place] 4 16:23:49 Radiologi c infiltrat e of lung 735050029 Active 2023 Ananth Cobos MD [facility] [employer] [facility],[address], [place], [address] , [place] [facility] - [facility] [place] 4 15:27:32 Multiple nodules of lung 184741755 Active 2024 Ananth Cobos MD [address] [place] [address],[address], [place], [address] , [place] & [place] 5 10:30:39 Infectiou s disease 67894103 Active 2024 Ananth Cobos MD [address] [place] [address],[address], [place], [address] , [place] [facility] [place] 5 10:31:04 Interstit ial lung disease 589793824 Active 2024 Ananth Cobos MD [address] [place] [address],[address], [place], [address] , [place] [facility] [place] 5 10:32:57 Paroxysma l atrial fibrillat ion 728159062 Active 2024 JEANNE JOE, COMBER OPERATOR [address] [place] [address],[address], [place], [address] , [place] [facility] [place] 5 15:54:18 Hypokalem ia 44708195 Active 2024 Akshat coppola MD [address] [place] [address],[address], [place], [address] , [place] [facility] [place] 5 13:17:54 Essential hypertens ion 30858339 Active 2021 maury grayson null, [place] [facility] [place] 2 15:22:54 Mixed hyperlipi demia 485144591 Active 2021 maury kenan null, [place] [facility] [place] 2 15:23:10 Seizure disorder 144282635 Active 2021 maury kenan null[place] [facility] [place] 2 15:23:21 Chronic obstructi ve pulmonary disease 21866322 Active 2021 Advanced maury kenan null, [place] [facility] [place] 2 15:23:37 Cerebrova scular accident 669274272 Active 2021 maury kenan [place] [facility] [place] 2 15:24:27 Lumbosacr al radiculop athy 0411328 Active 2021 maury kenan null[place] [facility] [place] 2 15:24:59 Chronic pain 24174244 Active 2021 maury kenan null[place] [facility] [place] 2 15:25:13 Postmenop ausal osteopeni a 564876294 Active 2021 maury kenan null, [place] [facility] [place] 2 15:25:28 Traumatic brain injury 689155777 Active 2022 Akshat coppola MD [address] [place] [address],[address], [place], [address] , [place] & [place] 3 16:51:05 Sensorine ural hearing loss of bilateral ears 051773135 Active 2022 Akshat coppola MD [facility] [employer] [facility],[address], [place], [address] , [place] [facility] [place] 4 12:57:32 Sensorine ural hearing loss 47204183 Active 2022 MARGARET BOO, AUD [address] [facility], [place], [address] , [place] [facility] [place] 3 09:40:05 Left ventricul ar diastolic dysfuncti on 583333808 Active 2022 JEANNE JOE APRN [facility] [employer],[address], [place], [address] , [facility] - [facility] [place] 3 12:16:53 Advance care planning Active 2022 Akshat coppola MD [facility] [employer],[address], [place], [address] , [place] [facility] [place] 3 12:40:51 Adult health examinati on Active 2022 Akshat coppola MD [facility] [employer] [facility],[address], [place], [address] , [facility] - [facility] [place] 3 12:40:52 Standardi zed adult depressio n screening tool completed 14121961138 4107 Active 2022 Akshat coppola MD [facility] [employer],[address] , [place], [address] , [facility] - [facility] [place] 3 12:40:53 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 951248786 Active 2022 Akshat coppola MD [facility] [employer],[address] , [place], [address] , [place] [facility] [place] 4 12:56:27 Moderate major depressio n 989893 Active 2022 Akshat coppola MD [facility] [employer],[address] , [place], [address] , [place] [facility] [place] 4 12:57:32 Chronic hypoxemic respirato ry failure 071620826 Active 2022 Akshat coppola MD [facility] [employer],[address] , [place], [address] , [place] [facility] [place] 4 12:55:30 Gastroeso phageal reflux disease without esophagit is 791225089 Active 2022 Akshat coppola MD [address] [place] [address],[address] [place] [address], [address] , [place] [facility] [place] 3 12:41:30 Obstructi ve sleep apnea syndrome 61054540 Active 2023 Ananth Cobos MD [address] [place] [address],[address], [place], [address] , [place] [facility] [place] 4 23:53:59 Mixed sleep apnea 935334510 Active 2023 Ananth Cobos MD [address] [place] [address],[address], [place], [address] , [place] [facility] [place] 4 23:54:05 Central sleep apnea syndrome 28710399 Active 2023 Ananth Cobos MD [address] [place] [address],[address], [place], [address] , [place] [facility] [place] 4 23:54:23 Mitral valve regurgita tion 74410966 Active 2023 Ananth Cobos MD [address] [place] [address],[address], [place], [address] , [place] [facility] [place] 4 20:22:53 Dysuria 28662990 Active 2023 Akshat coppola MD [address] [place] [address],[address], [place], [address] , [place] [facility] [place] 4 17:06:10 Notes:Some problems listed i n Document: #[id number] could not be added to this patient's chart. Please review this document and add these problems to the patient's chart manually as needed. Problem Notes None recorded. Procedures Surgical History Date Name Laterality Status Provider Name and Address Organization Details Recorded Time hysterectomy completed maury kenan [place] [facility] [place] 08/18/2022 15:27:10 cholecystectomy completed maury grayson [place] [facility] [place] 08/18/2022 15:27:20 Imaging Results None recorded. Procedure [...] Not Available Not Available No t Available [employer] 3 As Directed 12/03 completed OTC Not [...] Organization Details Last Updated DateTime 162.56 cm 23.4 kg/m2 74459.7 2 g 98.6 [degF] 100 % 100 % 2 L/min 50 /min 18 /min 108 mm[Hg] 70 mm[Hg] Anais Ruth [facility] [place] 12:15:20 Social History Question Answer Notes LastModified by Organizat ion Details LastModified Time Tobacco Smoking Status Former Smoker Former 1 PPD x 50 years Crystal Antonio hernández [facility] [place] 09/27/2024 15:35:36 Do You Have An Advance Directive? Yes Information not available 07/27/2023 Do You Wear A Helmet When Biking? No N/A [email or web address] Information not available 07/27/2023 Are You Blind Or Do You Have Difficulty Seeing? No Information not available 07/27/2023 Is Blood Transfusion Acceptable In An Emergency? No [email or web address] Information not available 07/27/2023 What Is Your Level Of Caffeine Consumption? Occasional [email or web address] Information not available 02/23/2023 In The 14 Days Before Symptom Onset, Have You Had Close Contact With A Laboratory-confi rmed COVID-19 While That Case Was Ill? No [email or web address] Information not available 07/27/2023 In The 14 Days Before Symptom Onset, Have You Had Close Contact With A Person Who Is Under Investigation For COVID-19 While That Person Was Ill? No [email or web address] Information not available 07/27/2023 Have You Been To An Area Known To Be High Risk For COVID-19? No Information not available 07/27/2023 Are You Deaf Or Do You Have Serious Difficulty Hearing? No [email or web address] Information not available 07/27/2023 What Type Of Diet Are You Following? REGULAR [email or web address] Information not available 07/27/2023 Have You Processed Blood Or Body Fluids From An Ebola Virus Disease Patient Without Appropriate PPE? No [email or web address] Information not available 07/27/2023 Do You Reside In Or Have You Traveled To An Area Where Ebola Virus Transmission Is Active? No [email or web address] Information not available 07/27/2023 How Many Days Of Moderate To Strenuous Exercise, Like A Brisk Walk, Did You Do In The Last 7 Days? 0 [email or web address] Information not available 07/27/2023 Have There Been Any Changes To Your Family Or Social Situation? No Information not available 07/27/2023 What Is The Fluoride Status Of Your Home? Unknown [email or web address] Information not available 07/27/2023 When Did You Quit Smoking? 1-5yearssincelas tcigarette Quit 2019 [email or web address] Information not available 10/24/2024 Are There Any Guns Present In Your Home? No [email or web address] Information not available 07/27/2023 Have You Recently Or Are You Planning To Travel To An Area With Zika Virus? No [email or web address] Information not available 07/27/2023 Do You Use Insect Repellent Routinely? No Information not available 07/27/2023 In General, Would You Say Your Health Is Good [email or web address] Information not available 07/27/2023 How Would You Describe The Condition Of Your Mouth And Teeth? including False Teeth Or Dentures? Fair [email or web address] Information not available 07/27/2023 In The Past 7 Days, How Many Servings Of Fruits And Vegetables Did You Typically Eat Each Day? (1 Serving = 1 Cup Of Fresh Vegetables, 1? 2 Cup Of Cooked Vegetables, Or 1 Medium Piece Of Fruit. 1 Cup = Size Of A Baseball.) 1-2 Servings Per Day [email or web address] Information not available 07/27/2023 In The Past 7 Days, How Many Servings Of High Fiber Or Whole Grain Foods Did You Typically Eat Each Day? (1 Serving = 1 Slice Of 100% Whole Wheat Bread, 1 Cup Of Whole-grain Or High-fiber Wlxkf-bi-tpa Cereal, 1? 2 Cup Of Cooked Cereal Such As Oatmeal, Or 1? 2 Cup Of Cooked Brown Rice Or Whole Wheat Pasta.) 1-2 Servings Per Day [email or web address] Information not available 07/27/2023 In The Past 7 Days, How Many Servings Of Fried Or High-fat Foods Did You Typically Eat Each Day? (Examples Include Fried Chicken, Fried Fish, Rosas, [place], Potato Chips, [place] Chips, Doughnuts, Creamy Salad Dressings, And Foods Made With Whole Milk, Cream, Cheese, Or Mayonnaise.) 1-2 Servings Per Day [email or web address] Information not available 07/27/2023 In The Past 7 Days, How Many Sugar-sweetened (not Diet) Beverages Did You Typically Consume Each Day 0 Drinks Per Day [email or web address] Information no t available 07/27/2023 Each Night, How Many Hours Of Sleep Do You Usually Get? 6-7 Hours [email or web address] Information not available 07/27/2023 Do You Snore Or Has Anyone Told You That You Snore? Yes [email or web address] Information not available 07/27/2023 In The Past 7 Days, How Often Have You Ionia Sleepy During The Daytime? Sometimes [email or web address] Information not available 07/27/2023 Do You Have Chronic Pain? No [email or web address] Information not available 07/27/2023 If Yes, Location Of Pain None [email or web address] Information not available 07/27/2023 In The Past 7 Days, How Would You Rate Your Pain? No Pain [email or web address] Information not available 07/27/2023 Are You In A Pain Management Program? Yes [email or web address] Information not available 07/27/2023 Do You Take Opioids For Your Pain? Yes [email or web address] Information not available 07/27/2023 How Often Is Stress A Problem For You In Handling Such Things As: Your Health, Your Finances, Your Family And Social Relationships, Your Work? Never Or Rarely [email or web address] Information not available 07/27/2023 How Often Do You Get The Social And Emotional Support You Need: Always [email or web address] Information not available 07/27/2023 In The Past 7 Days, Did You Need Help From Others To Take Care Of Things Such As Laundry And Housekeep- Ing, Banking, Shopping, Using The Telephone, Food Preparation, Transportation, Or Taking Your Own Medications? No [email or web address] Information not available 07/27/2023 Do You Live Alone? Yes [email or web address] Information not available 07/27/2023 Does Your Home Have Any Fall Risks (un-level Floors, Unfastened Rugs, Poor Lighting, Etc)? Yes Information not available 07/27/2023 What Was The Date Of Your Most Recent Tobacco Screening? 12/13/2024 [email or web address] Information not available 12/13/2024 How Many Children Do You Have? 3 [email or web address] Information not available 07/27/2023 Do You Have Any Pets? Yes Information not available 07/27/2023 What Is Your Relationship Status? [email or web address] Information not available 07/27/2023 Do You Use Your Seat Belt Or Car Seat Routinely? Yes Information not available 07/27/2023 Are You Sexually Active? No [email or web address] Information not available 07/27/2023 Do You Have Smoke And Carbon Monoxide Detectors In Your Home? Yes notwvse28 Information not available 07/27/2023 At What Age Did You Start Smoking Tobacco? 20 [email or web address] Information not available 07/27/2023 Are You Passively Exposed To Smoke? No [email or web address] Information not available 07/27/2023 What Types Of Sporting Activities Do You Participate In? None Information not available 07/27/2023 Do You Use Sunscreen Routinely? No [email or web address] Information not available 07/27/2023 Has Tobacco Cessation Counseling Been Provided? No [email or web address] Information not available 07/27/2023 How Many Years Have You Smoked Tobacco? 50 [email or web address] Information not available 07/27/2023 Do You Have Difficulty Walking Or Climbing Stairs? No Information not available 07/27/2023 Are You Currently In School? No [email or web address] Information not available 07/27/2023 What Contraceptive Method Was Reported At Start Of This Visit? None [email or web address] Information not available 07/27/2023 What Contraceptive Method Was Reported At End Of This Visit? None [email or web address] Information not available 07/27/2023 Do You Want To Talk About Contraception Or Prevention During Your Visit Today? No - I Do Not Want To Talk About Contraception Today Because I Am Here For Something Else [email or web address] Information not available 07/27/2023 Do You Have Any Future Plans To Get ? No, I Don't Want To Become [email or web address] Information not available 07/27/2023 What Is Your Reason For Having No Contraceptive Method At Start Of This Visit? Abstinence gkuftvt91 Information not available 07/27/2023 What Is Your Reason For Having No Contraceptive Method At End Of This Visit? Abstinence pawnysb23 Information not available 07/27/2023 Sex: Female Functional [...] available 11/03/2022 Are you currently employed? No [email or web address] Information not available 07/27/2023 Do you have transportation difficulties? No badzgsn50 Information not available 07/27/2023 What is your status? Not nztoxvb62 Information no t available 07/27/2023 Are you able to walk? YESWOREST Information not available 07/27/2023 Do you have difficulty doing errands alone? No [email or web address] Information not available 07/27/2023 Are you able to care for yourself? Yes bomqmuq23 Information n ot available 07/27/2023 Do you have difficulty dressing or bathing? No [email or web address] Information not available 07/27/2023 What is your exercise level? None [email or web address] Information not available 07/27/2023 Mental Status Question Answer Note LastModified by Organizat ion Details LastModified Time Do you feel stressed (tense, restless, nervous, or anxious, or unable to sleep at night)? OH15714-2 [email or web address] Information not available 07/27/2023 Do you have difficulty concentrating, remembering or making decisions? No [email or web address] Information no t available 07/27/2023 Family History Relationship Description Onset Age of this Age Resolved Age Notes LastModified by Organization Details LastModified Time Mother Diabetes mellitus Not available 2021 15:25:50 Mother Essential hypertension [email or web address] Not available 15:26:25 Mother Coronary arterioscler osis [email or web address] Not available 2021 15:26:41 Father Coronary arterioscler osis [email or web address] Not available 2021 15:26:51 Medical History Condition [...] or 50 mcg/0.25mL dose 1 completed Eliana hernández, [place] [facility] 08/23/2024 15:01:47 COVID-19, mRNA, LNP-S, PF, 100 mcg/0.5mL dose or 50 mcg/0.25mL dose 1 completed Eliana hernández, [place] [facility] 08/23/2024 15:01:47 COVID-19, mRNA, LNP-S, PF, 100 mcg/0.5mL dose or 50 mcg/0.25mL dose 1 completed Eliana hernández, [place] [facility] 08/23/2024 15:01:47 Td (adult), 2 Lf tetanus toxoid, preservative free, adsorbed 2 completed mauryguanaco grayson [facility] 08/18/2022 15:13:48 Past Encounters Encounter ID Performer Location Encounter Start Date Encounter Closed Date Diagnosis/Indication Diagnosis SNOMED-CT Code Diagnosis ICD10 Code Diagnosis Note [id number] Akshat coppola MD [facility] [address] [place] [phone] 02/16/2025 10:55:03 02/16/2025 11:34:19 Diarrhea of presumed infectious origin 08784580 R19.7 Counseling given in reference to medication regimen. Supportive care recommende d. Discussed with patient over-the-c ounter interventi ons to treat along with the therapeuti c action of the medication and instructed to notify of worsening symptoms for evaluation . Instructed to push fluids along with the use of acetaminop hen/ibupro fen for fever and body aches. Follow-up as needed. [id number] Akshat coppola MD [facility] [address] [place] [address] 03/01/2025 11:51:25 03/01/2025 14:26:12 Chronic diarrhea of unknown origin 54719011 K52.9 This is a significan t issue and I think prior to further workup which would not be easy this would likely require a colonoscop y etcetera I am going to go on and try cholestyra mine regime. I have spent a lengthy amount of time discussing with her son. Hypokalemia 17340672 E87 .6 Surveillan ce laboratory studies have been ordered to assess for the target of treatment as well as any potential end-organ toxicity. Hypomagnesemia 753514219 E83.42 Appropriat e age related, gender related, and health risk related parameters were addressed today recommenda tions were made for appropriat e wellness studies as indicated. Chronic hy poxemic respiratory failure 128577353 J96.11 patient needs ABG's drawn at end of sleep study. Chronic ob structive pulmonary disease 97213317 J41.8 Longstandi ng history of COPD that is managed with chronic bronchodil ators. Patient remains function room no specific complaints or changes. No recent unexpected weight loss, hemoptysis or other concerning signs relative to potential neoplastic developmen t. 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 Currently remains asymptomat ic, with no change in status, and no change in progressio n diagnostic ally or from a treatment standpoint . Moderate m ajor depression 537377 F32.1 This is a chronic issue that I think is 1 of the significan t comorbidit ies that is really not very well-contr olled. We still struggling with her other multiple comorbidit ies to try to get her GI issue stabilized and solved Paroxysmal atrial fibrillation 970964598 I48.0 This represents a chronic process that has been medically stable. Currently remains asymptomat ic, with no change in status, and no change in progressio n diagnostic ally or from a treatment standpoint . Seizure disorder 6127036 02 G40.509 This represents a chronic process that has been stable on medication s for extended period of time. Currently there appears to be no toxicity or side effect and good response to treatment. For these reasons we will continue medication s as ordered. Traumatic brain injury 681713138 S06.8AAS historical diagnosis with ongoing sequelae requiring longstandi ng treat Health Concerns Section Related Observation LastModified by Organization Detai ls LastModified Time None Recorded Concern Status LastModified by Organization Details LastModified Time None Recorded Payers Encounter Date Sequence Insurance Name Policy Number Policy Watts Covered Member ID Watts Member ID Guarantor Name 03/01/2025 1 [employer] (MEDICARE REPLACEMENT/ ADVANTAGE - PPO) Princess Alex Warner [id number] Princess Warner Notes Date Note Type Note Provider Name and Address Organization Details Recorded Time 03/01/2025 text/html Today's visit is follow-up 3 weeks out after having been in the emergency room hypokalemic hypomagnesemic in the setting of just general systems failure in really prolonged undiagnosed diarrhea. She was empirically treated as C diff did not respond a GI panel done in the emergency room really was not positive for any specific agent Akshat Rahman MD [address] [place] [address],[address], [place], [address], [place] [facility] [place] 03/01/2025 14:33:22 OBGyn Episode No OBEpisode recorded.
--- NOTE | 2025-03-15 13:46 | A.OFFVIS_ITS ---
[facility] Disclaimer: The information contained in this section may have been updated after the patient was seen, as this information can be updated by other users. Medical History (Updated 03/15/25 @ 13:52 by Karissa Roach APRN) Abnormal Holter monitor finding COPD (chronic obstructive pulmonary disease) Lung nodules Coronary artery calcification seen on CT scan Tobacco use HLD (hyperlipidemia) CVA (cerebral vascular accident) Paroxysmal A-fib Traumatic brain injury Mitral valve regurgitation Diastolic dysfunction JOHNSON (obstructive sleep apnea) Abnormal electrocardiogram [ECG] [EKG] HTN (hypertension) Sacroiliitis Lumbar radiculopathy Degenerative joint disease (DJD) of lumbar spine Social History Smoking Status: Current every day smoker tobacco type: cigarettes packs per day: 1 second hand exposure: No alcohol intake: never substance use type: denies use current occupational status: disabled Travel in the last 8 weeks?: None household members: none housing: house current occupational exposures/hazards: No caffeine: Yes PM Subjective & Objective Subjective Subjective:: Patient is a pleasant 74-year-old female who presents today for worsening low back and right hip pain. Patient rates it a 7 out of 10. Patient denies any new falls or injuries. Patient states that this has been over the last 3 to 4 w eeks. Patient does have a intrathecal pain pump with morphine 5 mg/mL with a daily dose of 0.66 mg/day. Patient is unsure if this does have any medication in it. She is interested in any help we may be able to provide. Patient states the pain is severe and interfering with her ability perform activities of daily living such as cooking and cleaning. Patient does have significant comorbidities including cardiac dysfunction, severe COPD and is on continuous oxygen. Her Jaciel has been reviewed. Review of Systems: General: No recent weight changes, no fever, no sleep disturbances Respiratory: No cough, no shortness of air, no recurring pulmonary infections Cardiovascular/peripheral vascular: No chest pain, no palpitations, no edema, no shortness of breath Gastrointestinal: No new onset incontinence, normal bowel movements reported Genitourinary: No new onset incontinence Musculoskeletal: Low back pain, right hip pain Psychiatric: [Normal mood/affect] Neurological: [Denies weakness in extremities], [denies balance issues] Pain at rest (0-10 scale): 7 Objective Objective:: Physical Exam: General: Alert and oriented x3, no acute distress, pleasant and cooperative Lungs: Respirations even and unlabored, symmetrical chest expansion Eyes: PERRL Musculoskeletal: Flexion and extension of lumbar [spine] somewhat guarded secondary to pain, [antalgic gait noted] point tenderness along right SI and right greater trochanteric bursa with positive right Candy's, Karey's, Gaenslen's, compression and distraction exam Neurological: Speech clear, no gross sensory deficit Has patient had previous pain injection?: No Conservative treatment options previously tried: Home exercise plan Length of treatment: Longer than 12 weeks Meds Home Medications and Allergies Home Medications ?Medication ?Instructions ?Recorded ?Confirmed ?Type duloxetine 30 mg capsule,delayed 90 mg PO DAILY Depression 09/06/20 02/14/25 History release levetiracetam 750 mg tablet 750 mg PO BID SEIZURES 09/06/20 02/14/25 History budesonide-formoterol HFA 160 2 puffs inhalation BID COPD 06/10/21 02/14/25 History mcg-4.5 mcg/actuation aerosol inhaler atorvastatin 40 mg tablet 40 mg PO HS 11/16/23 02/14/25 History bisoprolol fumarate 10 mg tablet 10 mg PO DAILY 11/16/23 02/14/25 History ipratropium 20 mcg-albuterol 100 2 puff inhalation Q30H 11/16/23 02/14/25 History mcg/actuation mist for inhalation (Combivent Respimat) omeprazole 40 mg capsule,delayed 40 mg PO DAILY 11/16/23 02/14/25 History release polyethylene glycol 3350 17 17 g PO DAILY 11/16/23 02/14/25 History gram/dose oral powder (Miralax) New Prescriptions to Start Prescriptions: Allergies Allergy/AdvReac Type Severity Reaction Status Date / Time No Known Allergies Allergy Verified 02/14/25 15:14 Assessment and Plan *Assessment and plan (1) Sacroiliitis: Status: Chronic Category: Medical Code(s): M46.1 - Sacroiliitis, not elsewhere classified (2) Degenerative joint disease (DJD) of lumbar spine: Status: Chronic Qualifiers: Spinal osteoarthritis complication: with radiculopathy Qualified Code(s): M47.26 - Other spondylosis with radiculopathy, lumbar region Category: Medical Code(s): M47.816 - Spondylosis without myelopathy or radiculopathy, lumbar region (3) Greater trochanteric bursitis of right hip: Status: Acute Category: Medical Code(s): M70.61 - Trochanteric bursitis, right hip Plan Patient is experiencing worsening pain in her low back and right hip with limited range of motion. Patient did have point tenderness along her right SI and right greater trochanteric bursa. I did discuss with the patient that I do believe she would benefit from a right SI and right bursa injection. Risk and benefits were discussed with the patient and she would like to proceed forward with this plan of care. Patient has tried and failed conservative therapy including oral medications, heat and ice, topicals, at home stretching exercise for longer than 12 weeks. Patient has had longstanding chronic history of low back pain for longer than 6 months.patient is not a candidate for ongoing physical therapy due to her significant heart and pulmonary comorbidities. Patient is on continuous oxygen. Patient is not a candidate for SI fusion due to her comorbidities as well. Patient will Be scheduled for right greater trochanteric bursa and right SI injection under fluoroscopy. Patient does also have a history of chronic sacroiliitis and did have SI injections back in 2020 that did provide significant relief. Patient is unable to determine how long those injections did last however she has not had any since that timeframe with our office. This will be a therapeutic injection with 1.5 mL of solution to be injected. I did also review over the fact that her pump is dry and needs to be refilled. Patient was also counseled that most likely this is also causing additional pain without having this medication to help with her chronic back pain. We will order the pump medication from [facility] with morphine 5 mg/mL and start her at 0.3 mg/day. Patient denied having any withdrawal symptoms. Will also give her a date and time for her pump refill. Patient agrees with this plan of care. We did also review over the importance of making sure that her pump does not run dry in future. She acknowledges understanding. Patient has been instructed to contact the clinic with any concerns before the next appointment. Dr. Rivera has reviewed this note and agrees with this plan of care. This note was dictated using voice recognition software and make contain errors or omissions. All injections are used with Lidocaine, Bupivacaine and dexamethasone. Occasionally urine drug screen is needed to verify patient's compliance with our office pain contract. This is ordered based off specific treatments related to chronic pain with the potential to abuse certain medications.
[2025-03-15 14:53] VITALS: BP 147/97; PULSE 68; RESP 18; O2SAT 98; BMI 24.0
== END 2025-03-15 23:59 | disposition home or self-care (01) ==
LOC: SC.PAIN 13:20
PROVIDERS: PCP Internal Medicine; Visit Provider Nurse Practitioner Family
DX: M46.1 Sacroiliitis, not elsewhere classified (principal); M47.26 Other spondylosis with radiculopathy, lumbar region; M70.61 Trochanteric bursitis, right hip; F17.210 Nicotine dependence, cigarettes, uncomplicated; Z73.89 Other problems related to life management difficulty
CPT/HCPCS: 99212; G0463

== ENCOUNTER 2025-04-14 10:28 | Day surgery (SDC) | payer MEDICARE, SELFPAY ==
--- NOTE | 2025-04-14 10:31 | EXP.PM.HP ---
History of Present Illness *Admission Date: 04/14/25 *Reason for visit:: Intrathecal refill; DDD *History of present illness: Same [facility] Disclaimer: The information contained in this section may have been updated after the patient was seen, as this information can be updated by other users. Medical History (Updated 03/15/25 @ 13:52 by Karissa Roach APRN) Abnormal Holter monitor finding COPD (chronic obstructive pulmonary disease) Lung nodules Coronary artery calcification seen on CT scan Tobacco use HLD (hyperlipidemia) CVA (cerebral vascular accident) Paroxysmal A-fib Traumatic brain injury Mitral valve regurgitation Diastolic dysfunction JOHNSON (obstructive sleep apnea) Abnormal electrocardiogram [ECG] [EKG] HTN (hypertension) Sacroiliitis Lumbar radiculopathy Degenerative joint disease (DJD) of lumbar spine Social History Smoking Status: Current every day smoker tobacco type: cigarettes packs per day: 1 second hand exposure: No alcohol intake: never substance use type: denies use current occupational status: disabled Travel in the last 8 weeks?: None household members: none housing: house current occupational exposures/hazards: No caffeine: Yes Have you lived/traveled outside [place] in past 30 days?: No Contact w/someone who lives/traveled outside US past 30 days?: No Exposure to someone with infectious disease in past 14 days?: No Do you have a fever (greater than 100.4 F or 38 C)?: No Have you tested positive for COVID-19?: No Exposed to someone with COVID-19 in past 14 days?: No Do you have a sore throat?: No Do you have a cough?: No Do you have any weakness?: No Do you have any diarrhea?: No Are you experiencing any unusual bleeding?: No Do you have any muscle aches/pain?: No Do you have any abdominal pain?: No Are you experiencing loss of taste or smell?: No Other Medical History Have you received the Flu Vaccine for this season: No Have you received the Pneumonia Vaccine: No Review of Systems Review of Systems Review of systems:: pertinent systems reviewed and negative unless documented below Review of systems (narrative): Review of Systems: General: No recent weight changes, no fever, no sleep disturbances Respiratory: No cough, no shortness of air, no recurring pulmonary infections Cardiovascular/peripheral vascular: No chest pain, no palpitations, no edema, no shortness of breath Gastrointestinal: No new onset incontinence, normal bowel movements reported Genitourinary: No new onset incontinence Musculoskeletal: Chronic back pain Psychiatric: [Normal mood/affect] Neurological: [Denies weakness in extremities], [denies balance issues] Meds Home Medications and Allergies Home Medications ?Medication ?Instructions ?Recorded ?Confirmed ?Type duloxetine 30 mg capsule,delayed 90 mg PO DAILY Depression 09/06/20 03/15/25 History release levetiracetam 750 mg tablet 750 mg PO BID SEIZURES 09/06/20 03/15/25 History budesonide-formoterol HFA 160 2 puffs inhalation BID COPD 06/10/21 03/15/25 History mcg-4.5 mcg/actuation aerosol inhaler atorvastatin 40 mg tablet 40 mg PO HS 11/16/23 03/15/25 History bisoprolol fumarate 10 mg tablet 10 mg PO DAILY 11/16/23 03/15/25 History ipratropium 20 mcg-albuterol 100 2 puff inhalation Q30H 11/16/23 03/15/25 History mcg/actuation mist for inhalation (Combivent Respimat) omeprazole 40 mg capsule,delayed 40 mg PO DAILY 11/16/23 03/15/25 History release polyethylene glycol 3350 17 17 g PO DAILY 11/16/23 03/15/25 History gram/dose oral powder (Miralax) New Prescriptions to Start Prescriptions: Allergies Allergy/AdvReac Type Severity Reaction Status Date / Time No Known Allergies Allergy Verified 02/14/25 15:14 Exam Constitutional Constitutional: no acute distress *Routine HEENT Exam Head: Present normocephalic and atraumatic Eye: Present PERRL ENT: Present mucous membranes moist *Routine Neck Exam Neck: Present supple *Routine Respiratory Exam Respiratory: Present CTA bilaterally *Routine Cardiovascular Exam Cardiovascular: Present RRR *Routine Abdominal Exam Abdominal: Present soft *Routine Rectal Exam Rectal:: deferred *Routine Genitalia Exam Genitalia:: deferred Routine Back/Spine/Pelvis Exam Back/Spine: Present pain with flexion *Routine Skin Exam Skin: Present intact and warm *Routine Neurological Exam Neurological: Present alert and oriented X3 Routine Psychiatric Exam Psychiatric: Present normal affect and normal thought process Assessment and Plan *Assessment and plan (1) Degenerative joint disease (DJD) of lumbar spine: Status: Chronic Qualifiers: Spinal osteoarthritis complication: with radiculopathy Qualified Code(s): M47.26 - Other spondylosis with radiculopathy, lumbar region Category: Medical Code(s): M47.816 - Spondylosis without myelopathy or radiculopathy, lumbar region (2) Lumbar radiculopathy: Status: Chronic Category: Medical Code(s): M54.16 - Radiculopathy, lumbar region (3) Sacroiliitis: Status: Chronic Category: Medical Code(s): M46.1 - Sacroiliitis, not elsewhere classified Plan Patient has been instructed to contact the clinic with any concerns before the next appointment. Dr. Rivera has reviewed this note and agrees with this plan of care. This note was dictated using voice recognition software and make contain errors or omissions. All injections are used with Lidocaine, Bupivacaine and dexamethasone. Occasionally urine drug screen is needed to verify patient's compliance with our office pain contract. This is ordered based off specific treatments related to chronic pain with the potential to abuse certain medications.
--- NOTE | 2025-04-14 10:33 | EXP.PAIN.PRO ---
Procedure Date: 04/14/25 Time: 11:07 Anesthesiologist:: Karissa Roach APRN Complications:: None Pre-procedure Diagnosis:: Degenerative disc disease of lumbar spine with lumbar radiculopathy symptoms Post-procedure Diagnosis:: Same Indications for Procedure:: Patient is a pleasant 74-year-old female who presents today for intrathecal refill and reprogram. She rates her pain today at 2 or 3 out of 10. She states that she has been under the weather for the last couple of weeks. Patient states she has been having more headaches. Patient is currently managed with morphine 5 mg/mL with a daily dose of 0.66 mg/day. She denies any side effects. Patient was supposed to get a SI and bursa injection however she did miss this last appointment due to not feeling well. Patient states that it does seem a little bit better. Her Jaciel has been reviewed and is appropriate. Physical Exam: General: Alert and oriented x3, no acute distress, pleasant and cooperative Lungs: Respirations even and unlabored, symmetrical chest expansion Eyes: PERRL Musculoskeletal: Flexion and extension of lumbar [spine] somewhat guarded secondary to pain, [antalgic gait noted] Neurological: Speech clear, no gross sensory deficit Procedure Details:: Informed consent was obtained and the risk and benefits of the procedure were explained to the patient. The patient had noninvasive monitoring placed including noninvasive blood pressure cuff and pulse oximeter. Patient's pump was interrogated. The area over the pump was cleansed with chlorhexidine as a cleansing solution. In sterile fashion the pump was accessed with a 22-gauge needle. Approximately 0 mls of the pump solution was removed and discarded appropriately. The pump was then refilled with 20 mL's of morphine 5 mg/mL. The needle was withdrawn and a bandage was placed over the puncture site. The infusion rate was reprogrammed and continued on her daily dose of 0.66 mg/day. The patient tolerated well with no complication. Plan and Disposition:: Patient tolerated the procedure well with no complications and was discharged neurologically intact. I did discuss with the patient that I do believe that part of her headaches may be related to the fact that her pump was completely dry. Patient was counseled that she may notice improvement since having her pump refilled. Patient was counseled that we can always reschedule her prior injections. She does state that she will call us and let us know if the pain does start to increase again. Patient will return to clinic on or before their next intrathecal refill date. We will see the patient back in the clinic at the next intrathecal refill. Patient has been instructed to contact the clinic with any concerns before the next appointment. Dr. Rivera has reviewed this note and agrees with this plan of care. This note was dictated using voice recognition software and make contain errors or omissions. -- It Is medically necessary for this patient to continue to have their intrathecal pump refilled at regular intervals. This patient had an intrathecal pain pump implanted after meeting criteria of chronic intractable pain for greater than 3 months and failing conservative treatments. Patient has committed and been compliant to the treatment plan and all planned follow up care. Since implantation of the intrathecal pain pump, the patient has had decreased pain and been more functional. Oral medications have been reduced including intake of oral opioids. Patient continues to do well with intrathecal therapy with decrease in pain symptoms and increase in functional status. Stopping intrathecal medications can lead to life threatening withdrawal, seizures, cardiac arrest, severe pain, and possible . Pumps that are not refilled at regular intervals can be damages and cause and need for replacement. We continually titrate dose and concentration to optimize pain relief and function. We are limited in concentration for certain drugs to safely deliver medications through the pump and stay within the recommendations from the Polyan[employer]ges[employer] Consensus Committee Guidelines. Depending on dose and concentration these pumps may need to be refilled sooner than 3 months as we titrate. A UDS is needed to verify patient's compliance with our office pain contract. This is ordered based off specific treatments related to chronic pain with the potential to abuse certain medications.
[2025-04-14 10:39] VITALS: BP 164/89; PULSE 100; RESP 18; TEMP 36.6; O2SAT 96; BMI 24.0
[2025-04-14 11:04] VITALS: BP 170/100; PULSE 101; RESP 18; O2SAT 97
[2025-04-14 11:18] VITALS: BP 149/98; PULSE 96; RESP 16; TEMP 36.6; O2SAT 96
== END 2025-04-14 11:18 | disposition home or self-care (01) ==
PROVIDERS: PCP Internal Medicine; Visit Provider Nurse Practitioner Family
DX: Z45.1 Encounter for adjustment and management of infusion pump (principal); M51.16 Intervertebral disc disorders with radiculopathy, lumbar region; J44.9 Chronic obstructive pulmonary disease, unspecified; Z86.73 Personal history of transient ischemic attack (TIA), and cerebral infarction without residual deficits; E78.5 Hyperlipidemia, unspecified; G47.33 Obstructive sleep apnea (adult) (pediatric); I48.0 Paroxysmal atrial fibrillation; M46.1 Sacroiliitis, not elsewhere classified; Z87.820 Personal history of traumatic brain injury; F17.210 Nicotine dependence, cigarettes, uncomplicated; Z79.899 Other long term (current) drug therapy
CPT/HCPCS: 95991

== ENCOUNTER 2025-08-18 12:52 | Day surgery (SDC) | payer MEDICARE, SELFPAY ==
[2025-08-18 13:03] VITALS: BP 150/78; PULSE 58; RESP 18; O2SAT 100; BMI 24.7
[2025-08-18 13:38] VITALS: BP 146/85; PULSE 71; RESP 18; O2SAT 98
--- NOTE | 2025-08-18 13:44 | EXP.HP ---
History of Present Illness *Admission Date: 08/18/25 *Reason for visit:: Refill of intrathecal pain pump *History of present illness: The patient is a pleasant 75-year-old white female who we are treating for degenerative disease of lumbar spine with lumbar radiculopathy symptoms. She presents for refill of her intrathecal pain pump today. [facility] Disclaimer: The information contained in this section may have been updated after the patient was seen, as this information can be updated by other users. Medical History Abnormal Holter monitor finding COPD (chronic obstructive pulmonary disease) Lung nodules Coronary artery calcification seen on CT scan Tobacco use HLD (hyperlipidemia) CVA (cerebral vascular accident) Paroxysmal A-fib Traumatic brain injury Mitral valve regurgitation Diastolic dysfunction JOHNSON (obstructive sleep apnea) Abnormal electrocardiogram [ECG] [EKG] HTN (hypertension) Sacroiliitis Lumbar radiculopathy Degenerative joint disease (DJD) of lumbar spine Social History Smoking Status: Current every day smoker tobacco type: cigarettes packs per day: 1 second hand exposure: No alcohol intake: never substance use type: denies use current occupational status: disabled Travel in the last 8 weeks?: None household members: none housing: house current occupational exposures/hazards: No caffeine: Yes Have you lived/traveled outside US in past 30 days?: No Contact w/someone who lives/traveled outside US past 30 days?: No Exposure to someone with infectious disease in past 14 days?: No Do you have a fever (greater than 100.4 F or 38 C)?: No Have you tested positive for COVID-19?: No Exposed to someone with COVID-19 in past 14 days?: No Do you have a sore throat?: No Do you have a cough?: No Do you have any weakness?: No Do you have any diarrhea?: No Are you experiencing any unusual bleeding?: No Do you have any muscle aches/pain?: No Do you have any abdominal pain?: No Are you experiencing loss of taste or smell?: No Other Medical History Have you received the Flu Vaccine for this season: No Have you received the Pneumonia Vaccine: No Review of Systems Review of Systems Review of systems:: pertinent systems reviewed and negative unless documented below Meds Home Medications and Allergies Home Medications ?Medication ?Instructions ?Recorded ?Confirmed ?Type duloxetine 30 mg capsule,delayed 90 mg PO DAILY Depression 09/06/20 08/18/25 History release levetiracetam 750 mg tablet 750 mg PO BID SEIZURES 09/06/20 08/18/25 History budesonide-formoterol HFA 160 2 puffs inhalation BID COPD 06/10/21 08/18/25 History mcg-4.5 mcg/actuation aerosol inhaler atorvastatin 40 mg tablet 40 mg PO HS 11/16/23 08/18/25 History bisoprolol fumarate 10 mg tablet 10 mg PO DAILY 11/16/23 08/18/25 History ipratropium 20 mcg-albuterol 100 2 puff inhalation Q30H 11/16/23 08/18/25 History mcg/actuation mist for inhalation (Combivent Respimat) omeprazole 40 mg capsule,delayed 40 mg PO DAILY 11/16/23 08/18/25 History release polyethylene glycol 3350 17 17 g PO DAILY 11/16/23 08/18/25 History gram/dose oral powder (Miralax) New Prescriptions to Start Prescriptions: Allergies Allergy/AdvReac Type Severity Reaction Status Date / Time No Known Allergies Allergy Verified 08/18/25 13:03 Exam Data for Last 24 hours Vital signs and Labs for Last 24 Hours: Pulse Resp BP Pulse Ox O2 Del Method O2 Flow Rate 71 18 146/85 H 98 Nasal Cannula 2 08/18/25 13:38 08/18/25 13:38 08/18/25 13:38 08/18/25 13:38 08/18/25 13:38 08/18/25 13:38 I & O for Last 24 hours: Intake & Output 08/16/25 08/17/25 08/18/25 08/19/25 11:59 11:59 11:59 11:59 Weight 140 lb *Routine HEENT Exam Head: Present normocephalic Eye: Present EOMI ENT: Present mucous membranes moist *Routine Respiratory Exam Respiratory: Present CTA bilaterally *Routine Cardiovascular Exam Cardiovascular: Present RRR, Normal S1 and Normal S2 *Routine Abdominal Exam Abdominal: Present soft *Routine Rectal Exam Rectal:: deferred *Routine Genitalia Exam Genitalia:: deferred Assessment and Plan *Assessment and plan (1) Degenerative joint disease (DJD) of lumbar spine: Status: Chronic Qualifiers: Spinal osteoarthritis complication: with radiculopathy Qualified Code(s): M47.26 - Other spondylosis with radiculopathy, lumbar region Category: Medical Code(s): M47.816 - Spondylosis without myelopathy or radiculopathy, lumbar region (2) Lumbar radiculopathy: Status: Chronic Category: Medical Code(s): M54.16 - Radiculopathy, lumbar region (3) Sacroiliitis: Status: Chronic Category: Medical Code(s): M46.1 - Sacroiliitis, not elsewhere classified Plan Refill of intrathecal pain pump
--- NOTE | 2025-08-18 13:45 | EXP.PAIN.PRO ---
Procedure Date: 08/18/25 Time: 13:46 Anesthesiologist:: Alexis Rivera MD Complications:: None Pre-procedure Diagnosis:: Degenerative disease of lumbar spine with lumbar radiculopathy symptoms Post-procedure Diagnosis:: Same Indications for Procedure:: This patient is a pleasant 75-year-old white female who presents for refill of her intrathecal pain pump today. She is on oxygen continuously. She does have an antalgic gait. Motor strength of lower extremities is 5/5. There is no gross sensory deficit. Jaciel and drug screen are all appropriate. She is doing well with her pain pump. We will continue her at 0.66 mg/day of intrathecal morphine. Procedure Details:: Informed consent was obtained and the risks and benefits of the procedure was explained to the patient. The patient was taken to the procedure room. The pump was interrogated. The area over the pump was prepped using ChloraPrep. The pump was accessed with a 22-gauge needle. Approximately 4 mL's of the intrathecal solution was withdrawn and discarded. The pump was then refilled with 20 mL's of intrathecal morphine 5 mg/mL. The pump was interrogated and the infusion was continued at 0.66 mg/day. The patient tolerated the procedure well with no complication. Plan and Disposition:: Will follow-up with this patient in 3 months for her next pump refill.
[2025-08-18 13:58] VITALS: BP 140/77; PULSE 70; RESP 16; O2SAT 98
== END 2025-08-18 13:58 | disposition home or self-care (01) ==
PROVIDERS: PCP Internal Medicine; Visit Provider Anesthesiology
DX: M51.16 Intervertebral disc disorders with radiculopathy, lumbar region (principal); Z45.1 Encounter for adjustment and management of infusion pump; M47.26 Other spondylosis with radiculopathy, lumbar region; M46.1 Sacroiliitis, not elsewhere classified; J44.9 Chronic obstructive pulmonary disease, unspecified; I25.10 Atherosclerotic heart disease of native coronary artery without angina pectoris; I11.9 Hypertensive heart disease without heart failure; E78.5 Hyperlipidemia, unspecified; F17.210 Nicotine dependence, cigarettes, uncomplicated; Z86.73 Personal history of transient ischemic attack (TIA), and cerebral infarction without residual deficits; Z79.51 Long term (current) use of inhaled steroids; Z79.899 Other long term (current) drug therapy
CPT/HCPCS: 62370; 99221